=== PATIENT | male | born 1945 ===

== ENCOUNTER 2023-04-09 17:44 | Inpatient (IN) | payer OTHER, MEDICARE, BC, SELFPAY ==
--- NOTE | ~2023-04-09 | CT_ITS ---
EXAMINATION: CT ABDOMEN AND PELVIS WITHOUT CONTRAST CLINICAL INFORMATION: Bacteremia. Question source. COMPARISON: None available. TECHNIQUE: Multidetector volumetric imaging was performed from the superior aspect of the liver through the pubic symphysis. Sagittal and coronal reformatted images were obtained on the technologist's workstation. This CT examination was performed using dose optimization techniques as appropriate, variously including the following: *Automated exposure control *Adjustment of mA and/or kV according to patient size (this includes techniques or standardized protocols for targeted exams where dose is matched to indication/reason for exam; i.e. extremities or head) *Use of iterative reconstruction technique DLP: 1009 mGy-cm FINDINGS: LUNG BASES: Subsegmental atelectasis at the left lung base. LIVER, GALLBLADDER, AND BILIARY TREE: The liver is normal in size, shape, and attenuation. 2 cm low-attenuation lesion in the lateral segment of the left lobe of the liver suggestive of a cyst. Normal gallbladder. No biliary duct dilatation. PANCREAS: Unremarkable. SPLEEN: Unremarkable. ADRENAL GLANDS: Unremarkable. KIDNEYS AND URETERS: The kidneys are normal in size, shape, and attenuation. No hydronephrosis, hydroureter, or calculi seen. No perinephric stranding. Small bilateral low-attenuation renal lesions probably representing cysts. No imaging follow-up recommended. BLADDER: Not optimally distended. GASTROINTESTINAL TRACT: Mild diverticulosis. No evidence of diverticulitis or colitis. The small and large bowel are otherwise unremarkable. The appendix is unremarkable. ABDOMINAL WALL: Umbilical and periumbilical hernias containing fat. LYMPH NODES: Normal. VASCULAR: Unremarkable. PELVIC VISCERA: Unremarkable. OSSEOUS STRUCTURES: Degenerative changes of the spine and hip joints. CT/CT abdomen pelvis wo IV con IMPRESSION: Diverticulosis. No evidence of diverticulitis or colitis. Liver cyst. Umbilical and periumbilical hernias containing fat. Fleischner guidelines were followed.
--- NOTE | ~2023-04-09 | XR_ITS ---
EXAMINATION: XR CHEST CLINICAL INFORMATION: Altered mental status COMPARISON: None available. TECHNIQUE: Frontal view of the chest was obtained. FINDINGS: Lung volumes are symmetric. There is linear atelectasis at the left lung base. No additional consolidation is seen. No evidence of pneumothorax, pleural effusion, or pulmonary edema. The cardiomediastinal contour is unremarkable. No acute osseous findings are seen. XR/XR chest 1V IMPRESSION: Linear left basilar atelectasis without additional acute findings.
[2023-04-09 17:52] VITALS: BP 128/78; BP 155/68; PULSE 110; PULSE 114; RESP 24; TEMP 37.7; O2SAT 96; BMI 44.5
--- NOTE | 2023-04-09 18:09 | ECG_ITS ---
Test Reason : Fever Blood Pressure : / mmHG Vent. Rate : 108 BPM Atrial Rate : 108 BPM P-R Int : 160 ms QRS Dur : 112 ms QT Int : 336 ms P-R-T Axes : 053 -20 073 degrees QTc Int : 450 ms Sinus tachycardia Otherwise normal ECG No previous ECGs available Referred By: Wanda Castro Electronically Signed By:WALE SCHWARTZ MD
--- NOTE | 2023-04-09 18:21 | ED_ITS ---
HPI - Fever General Chief Complaint: Fever Stated Complaint: FEVER OF 101 LETHARGIC Time Seen by Provider: 04/09/23 18:10 Source: patient and EMS Mode of arrival: EMS Limitations: no limitations History of Present Illness HPI Narrative: 77-year-old male came in by ambulance from rehab for evaluation of fever, and g eneralize weakness for 2 hours. Patient was discharged from [facility] ER yesterday to a rehab patient is new to the rehab staff noted to be febrile with a generalized weakness, initially in the ED patient met criteria for sepsis and sepsis protocol was activated, exam is consistent with right lower leg cellulitis. Related Data Allergies Allergy/AdvReac Type Severity Reaction Status Date / Time No Known Allergies Allergy Verified 04/09/23 18:26 Review of Systems Review of Systems: All other systems are reviewed and are negative Constitutional: Reports as per HPI and Reports no additional constitutional complaints Eyes: Reports as per HPI and Reports no additional eye complaints Reports system reviewed and no additional complaints, except as documented Cardiovascular: Reports as per HPI and Reports no additional cardiovascular complaints Respiratory: Reports as per HPI and Reports no additional respiratory complaints Gastrointestinal: Reports as per HPI and Reports no additional gastrointestinal complaints Genitourinary: Reports no additional female genitourinary complaints Musculoskeletal: Reports no additional musculoskeletal complaints Skin/Breast: Reports system reviewed and no additional complaints, except as docu Psychiatric: Reports no additional psychiatric complaints Endocrine: Reports no additional endocrine complaints Hematologic/Lymphatic: Reports no additional hematologic/lymphatic complaints Allergic/Immunologic: Reports no additional allergic/immunologic complaints Reports system reviewed and no additional complaints, except as documented and Reports Abnormal speech present [facility] Social History Social History Alcohol intake: unknown Patient Tobacco Use Status: Former Tobacco user Smoked in Last 30 Days: No Use of substances other than those prescribed or required for medical reasons: Unknown Advance Directives: No Advance Directives Information Provided: No Physical Exam Vital Signs: Vital Signs: Last Vital Signs Temp 98.8 F 04/09/23 22:13 Pulse 100 04/09/23 22:13 Resp 17 04/09/23 22:13 BP 135/72 04/09/23 22:13 Pulse Ox 95 04/09/23 22:13 O2 Del Method Room Air 04/09/23 22:13 BMI result Body Mass Index 44.5 Vital signs have been reviewed as appeared to be correct. Blood pressure normal. Heart rate tachycardia. Respiration rate elevated. Temperature normal. Oxygen saturation normal. Appearance: Alert. Oriented X3. No acute distress. Head: Normal external exam. Normocephalic. Atraumatic. No Roberts signs noted. No raccoon eyes noted Eyes: PERRLA. EOMI. Conjunctiva and sclera normal. Eyelids normal. ENT: TM's Normal. Pharynx normal. Uvula midline. Moist mucous membranes. No trismus noted. No drooling noted. No muffled voice noted. Neck: Normal inspection. Neck supple. FROM. No adenopathy. Thyroid Normal. No meningeal signs. No neck mass noted. CVS: Normal heart rate and rhythm. Heart sound normal. No murmurs noted. Pulses normal throughout. Respiratory: No respiratory distress. Painless inspiration. Breath sounds normal. No wheezes/rales/rhonchi noted. Chest nontender. No accessory muscle usage noted or decreased air movement noted. Abdomen: Soft and nontender. Bowel sounds normal in all 4 quadrants. No distention noted. No organomegaly noted. No visible injury noted. Back: No CVA tenderness. Full range of motion noted. Skin: Skin warm and dry. Normal skin color. Normal skin turgor. No rashes/lesions/lacerations noted. Extremities: 10 x 15 cm area of redness and hotness to the right lower leg, neurovascularly intact Neuro: Oriented X 3. Cranial nerve exam: II-XII are grossly intact, No motor deficit. No sensory deficit. Reflexes normal. Course Course Course Narrative: Right leg cellulitis with SIRS, patient do not meet criteria for septic shock, no improvement of lactic acid after IV hydration, covered with Zosyn and vancomycin and was given 1 L of normal saline IV. Medications Administered Generic Name Dose Route Start Last Admin Trade Name Freq PRN Reason Stop Dose Admin Enoxaparin Sodium 40 mg 04/09/23 22:00 04/09/23 23:02 Enoxaparin Sodium 40 Mg/0.4 Ml Syringe SUBCUT 40 mg Q24H TARUN Administration Lactated Ringer's 1,000 mls @ 100 mls/hr 04/09/23 22:00 04/09/23 23:03 Lr IVCONT 100 mls/hr .Q10H TARUN Administration Sodium Chloride 3 ml 04/10/23 00:00 04/10/23 00:21 0.9 % Sodium Chloride Flush 3 Ml Syringe IVFLUSH Not Given QSHIFT TARUN Discontinued Medications Generic Name Dose Route Start Last Admin Trade Name Bradley PRN Reason Stop Dose Admin Piperacillin Sod/Tazobactam 50 mls @ 100 mls/hr 04/09/23 18:33 04/09/23 23:43 Sod 3.375 gm/ Sodium Chloride IV 04/09/23 19:02 Infused ONCE ONE Infusion Sodium Chloride 1,000 mls @ 999 mls/hr 04/09/23 18:35 04/09/23 23:43 Ns IV 04/09/23 19:35 Infused .Q1H1M ONE Infusion Vancomycin HCl 2,000 mg in 500 mls @ 250 mls/hr 04/09/23 18:45 04/09/23 23:44 Vancomycin/Ns IV 04/09/23 20:44 Infused ONCE ONE Infusion Tramadol HCl 50 mg 04/09/23 23:16 04/09/23 23:32 Tramadol Hcl 50 Mg Tablet PO 04/09/23 23:17 50 mg ONCE ONE Administration Medical Decision Making Differential Diagnosis Differential Diagnoses: The differential diagnosis associated with the presentation includes (Cellulitis, pneumonia, UTI, severe electrolyte abnormalities, septic shock, severe anemia, UTI.) Admission/Observation Consideration of admission/observation: Escalation of care including admi ssion/observation considered Consult Healthcare Provider Management of the patient was discussed with: Hospitalist (Dr. Guaman) Lab Data MDM Lab Attestation statement: I reviewed the patient's lab results. 04/09/23 18:43 04/09/23 18:43 Labs: Lab Results 04/09/23 04/09/23 04/09/23 Range/Units 18:01 18:43 18:43 WBC 10.3 (4.8-10.8) X10*3/uL RBC 4.99 (4.60-5.80) X10*6/uL Hgb 15.4 (14.0-18.0) g/dl Hct 45.6 (42.0-52.0) % MCV 91.4 (80.0-98.0) fL MCH 30.9 (27.0-33.0) pg MCHC 33.8 (31.0-36.0) g/dl RDW 13.2 (11.0-16.0) % Plt Count 184 (160-400) X10*3/uL MPV 9.8 (9.4-12.4) fL Immature Gran % (Auto) 0.3 (0.0-0.4) % Neut % (Auto) 75.5 H (45-73) % Lymph % (Auto) 10.7 L (20-40) % [place] % (Auto) 13.1 H (2-11) % Eos % (Auto) 0.1 (0-4) % Baso % (Auto) 0.3 (0-2) % Lymph # (Auto) 1.1 L (1.2-4.9) X10*3/uL [place] # (Auto) 1.4 H (0.1-1.2) X10*3/uL Eos # (Auto) 0.0 (0.0-0.4) X10*3/uL Baso # (Auto) 0.0 (0.0-0.2) X10*3/uL Abs Immat Gran (auto) 0.03 (0.00-0.03) X10*3/uL Absolute Neuts (auto) 7.8 (2.0-8.3) x10*3/uL Absolute Nucleated RBC 0.000 (0.0-0.012) X10*3/uL Nucleated RBC % (auto) 0.0 (0.0-0.2) /100WBC PT 14.7 H (10.0-13.1) SEC INR 1.3 H (0.9-1.1) APTT 32.0 (26.0-36.4) SEC Sodium (135-145) mmol/L Potassium (3.3-5.1) mmol/L Chloride (96-108) mmol/L Carbon Dioxide (22-29) mmol/L Anion Gap (12-20) BUN (9-16) mg/dL Creatinine (0.5-1.4) mg/dL Estim Creat Clear Calc Estimated GFR Random Glucose (60-115) mg/dL Lactic Acid 2.3 H* (0.5-2.0) mmol/L Calcium (8.4-10.2) mg/dL Total Bilirubin (0.0-1.0) mg/dL Direct Bilirubin (0.0-0.5) mg/dL AST (5-37) U/L ALT (0-40) U/L Alkaline Phosphatase (39-117) U/L Troponin I High Sens (<3.5-35.0) ng/L B-Natriuretic Peptide (<100) pg/mL Total Protein (6.5-8.0) g/dL Albumin (3.5-5.0) g/dL Urine Color Urine Appearance Urine pH (5.0-9.0) Ur Specific [place] (1.005-1.025) Urine Protein (Neg-Trace) mg/dL Urine Glucose (UA) (Negative) mg/dL Urine Ketones (Negative) mg/dL Urine Blood (Negative) Urine Nitrite (Negative) Ur Leukocyte Esterase (Negative) Urine RBC (0-2) /HPF Urine WBC (0-5) /HPF Ur Squamous Epith Cells (0-2) /HPF Urine Bacteria (None Seen) Hyaline Casts (0-2) /LPF 04/09/23 04/09/23 04/09/23 Range/Units 18:43 18:43 18:56 WBC (4.8-10.8) X10*3/uL RBC (4.60-5.80) X10*6/uL Hgb (14.0-18.0) g/dl Hct (42.0-52.0) % MCV (80.0-98.0) fL MCH (27.0-33.0) pg MCHC (31.0-36.0) g/dl RDW (11.0-16.0) % Plt Count (160-400) X10*3/uL MPV (9.4-12.4) fL Immature Gran % (Auto) (0.0-0.4) % Neut % (Auto) (45-73) % Lymph % (Auto) (20-40) % [place] % (Auto) (2-11) % Eos % (Auto) (0-4) % Baso % (Auto) (0-2) % Lymph # (Auto) (1.2-4.9) X10*3/uL [place] # (Auto) (0.1-1.2) X10*3/uL Eos # (Auto) (0.0-0.4) X10*3/uL Baso # (Auto) (0.0-0.2) X10*3/uL Abs Immat Gran (auto) (0.00-0.03) X10*3/uL Absolute Neuts (auto) (2.0-8.3) x10*3/uL Absolute Nucleated RBC (0.0-0.012) X10*3/uL Nucleated RBC % (auto) (0.0-0.2) /100WBC PT (10.0-13.1) SEC INR (0.9-1.1) APTT (26.0-36.4) SEC Sodium 137 (135-145) mmol/L Potassium 4.3 (3.3-5.1) mmol/L Chloride 98 (96-108) mmol/L Carbon Dioxide 23 (22-29) mmol/L Anion Gap 20 (12-20) BUN 29 H (9-16) mg/dL Creatinine 1.91 H (0.5-1.4) mg/dL Estim Creat Clear Calc 45.8 Estimated GFR 35 Random Glucose 169 H (60-115) mg/dL Lactic Acid (0.5-2.0) mmol/L Calcium 10.1 (8.4-10.2) mg/dL Total Bilirubin 1.5 H (0.0-1.0) mg/dL Direct Bilirubin 0.6 H (0.0-0.5) mg/dL AST 30 (5-37) U/L ALT 20 (0-40) U/L Alkaline Phosphatase 104 (39-117) U/L Troponin I High Sens < 2.7 (<3.5-35.0) ng/L B-Natriuretic Peptide (<100) pg/mL Total Protein 8.3 H (6.5-8.0) g/dL Albumin 4.3 (3.5-5.0) g/dL Urine Color Yellow Urine Appearance Clear Urine pH 6.0 (5.0-9.0) Ur Specific [place] 1.010 (1.005-1.025) Urine Protein Negative (Neg-Trace) mg/dL Urine Glucose (UA) >=1000 H (Negative) mg/dL Urine Ketones Negative (Negative) mg/dL Urine Blood Negative (Negative) Urine Nitrite Negative (Negative) Ur Leukocyte Esterase Negative (Negative) Urine RBC 0-2 (0-2) /HPF Urine WBC 0-5 (0-5) /HPF Ur Squamous Epith Cells 0-2 (0-2) /HPF Urine Bacteria None Seen (None Seen) Hyaline Casts 0-2 (0-2) /LPF 04/09/23 Range/Units 20:20 WBC (4.8-10.8) X10*3/uL RBC (4.60-5.80) X10*6/uL Hgb (14.0-18.0) g/dl Hct (42.0-52.0) % MCV (80.0-98.0) fL MCH (27.0-33.0) pg MCHC (31.0-36.0) g/dl RDW (11.0-16.0) % Plt Count (160-400) X10*3/uL MPV (9.4-12.4) fL Immature Gran % (Auto) (0.0-0.4) % Neut % (Auto) (45-73) % Lymph % (Auto) (20-40) % [place] % (Auto) (2-11) % Eos % (Auto) (0-4) % Baso % (Auto) (0-2) % Lymph # (Auto) (1.2-4.9) X10*3/uL [place] # (Auto) (0.1-1.2) X10*3/uL Eos # (Auto) (0.0-0.4) X10*3/uL Baso # (Auto) (0.0-0.2) X10*3/uL Abs Immat Gran (auto) (0.00-0.03) X10*3/uL Absolute Neuts (auto) (2.0-8.3) x10*3/uL Absolute Nucleated RBC (0.0-0.012) X10*3/uL Nucleated RBC % (auto) (0.0-0.2) /100WBC PT (10.0-13.1) SEC INR (0.9-1.1) APTT (26.0-36.4) SEC Sodium (135-145) mmol/L Potassium (3.3-5.1) mmol/L Chloride (96-108) mmol/L Carbon Dioxide (22-29) mmol/L Anion Gap (12-20) BUN (9-16) mg/dL Creatinine (0.5-1.4) mg/dL Estim Creat Clear Calc Estimated GFR Random Glucose (60-115) mg/dL Lactic Acid (0.5-2.0) mmol/L Calcium (8.4-10.2) mg/dL Total Bilirubin (0.0-1.0) mg/dL Direct Bilirubin (0.0-0.5) mg/dL AST (5-37) U/L ALT (0-40) U/L Alkaline Phosphatase (39-117) U/L Troponin I High Sens (<3.5-35.0) ng/L B-Natriuretic Peptide < 10 (<100) pg/mL Total Protein (6.5-8.0) g/dL Albumin (3.5-5.0) g/dL Urine Color Urine Appearance Urine pH (5.0-9.0) Ur Specific [place] (1.005-1.025) Urine Protein (Neg-Trace) mg/dL Urine Glucose (UA) (Negative) mg/dL Urine Ketones (Negative) mg/dL Urine Blood (Negative) Urine Nitrite (Negative) Ur Leukocyte Esterase (Negative) Urine RBC (0-2) /HPF Urine WBC (0-5) /HPF Ur Squamous Epith Cells (0-2) /HPF Urine Bacteria (None Seen) Hyaline Casts (0-2) /LPF Independent Interpretation I performed an independent interpretation of an: Plain X-Ray (Chest: No acute intrathoracic pathology.) Radiology Impression Discussion of test interpretation with radiology: I have reviewed the r adiologist's reading. Discharge Plan Discharge Clinical Impression: Cellulitis of leg, right, Sepsis Patient Disposition: Admitted As Inpatient
--- NOTE | 2023-04-09 18:38 | PC.NURSE ---
Pt presents to ED lethargic, febrile with rectal temp 102.4. Pt answers questions appropriately. Tachy on tele 110s. Generally weak, no unilateral weakness noted on exam. Right ankle with swelling and redness, pt does report pain but reports for years. Upper ext dusky with cap refill greater than 2 sec. IV established and labs obtained
[2023-04-09 18:53] LABS: MANUAL DIFF FLAG NO
[2023-04-09 18:59] LABS: Basophils Percent Auto 0.3 % (0-2); Eosinophils Percent Auto 0.1 % (0-4); Hematocrit 45.6 % (42.0-52.0); Hemoglobin 15.4 g/dl (14.0-18.0); Imm Gran Abs Auto 0.03 X10*3/uL (0.00-0.03); Imm Gran Pct Auto 0.3 % (0.0-0.4); Lymphocytes Absolute Auto 1.1 X10*3/uL (1.2-4.9); Lymphocytes Percent Auto 10.7 % (20-40); Mean Corpuscular HGB Conc 33.8 g/dl (31.0-36.0); Mean Corpuscular Hemoglobin 30.9 pg (27.0-33.0); Mean Corpuscular Volume 91.4 fL (80.0-98.0); Mean Platelet Volume 9.8 fL (9.4-12.4); Monocytes Absolute Auto 1.4 X10*3/uL (0.1-1.2); Monocytes Percent Auto 13.1 % (2-11); Neutrophils Absolute Auto 7.8 x10*3/uL (2.0-8.3); Neutrophils Percent Auto 75.5 % (45-73); Platelet Count 184 X10*3/uL (160-400); Red Blood Count 4.99 X10*6/uL (4.60-5.80); Red Cell Distribution Width 13.2 % (11.0-16.0); White Blood Count 10.3 X10*3/uL (4.8-10.8)
--- NOTE | 2023-04-09 18:59 | PC.NURSE ---
sepsis protocol was called with notification to Dr. Castro. 1st set of cultures drawn, unable to obtain second set d/t pt difficult stick. pt straight cathed for UA.
[2023-04-09 19:01] VITALS: BP 130/83; PULSE 103; RESP 17; TEMP 37.1; O2SAT 97
--- NOTE | 2023-04-09 19:09 | PC.NURSE ---
assumed care of patient at 0705.Spesis protocol in place. First set of culutres draw during previous shift. Patient difficult stick, delaying antibiotic treatment
[2023-04-09 19:11] LABS: Alanine Aminotransferase 20 U/L (0-40); Albumin Level 4.3 g/dL (3.5-5.0); Alkaline Phosphatase 104 U/L (39-117); Anion Gap 20 (12-20); Aspartate Amino Transferase 30 U/L (5-37); Bilirubin Direct 0.6 mg/dL (0.0-0.5); Bilirubin Total 1.5 mg/dL (0.0-1.0); Blood Urea Nitrogen 29 mg/dL (9-16); Calcium 10.1 mg/dL (8.4-10.2); Carbon Dioxide 23 mmol/L (22-29); Chloride 98 mmol/L (96-108); Creatinine Clr Calc Pharmacy 45.8; Estimated Glomerular Filt Rate 35; Glucose Random 169 mg/dL (60-115); Potassium 4.3 mmol/L (3.3-5.1); Sodium 137 mmol/L (135-145); Total Protein 8.3 g/dL (6.5-8.0)
[2023-04-09 19:14] LABS: Lactic Acid 2.3 mmol/L (0.5-2.0)
--- NOTE | 2023-04-09 19:14 | MHC.EDTECH ---
Assumed care of pt as anesthesia technician at 1900 No distress at this time will Continue to monitor at this time EKG WAS ORDERED PRIOR TO MY ARRIVAL WAS NOT DONE
[2023-04-09 19:16] LABS: Troponin-I High Sensitivity < 2.7 ng/L (<3.5-35.0)
[2023-04-09 19:17] LABS: INTERNATIONAL NORM RATIO 1.3 (0.9-1.1); Prothrombin Time 14.7 SEC (10.0-13.1)
[2023-04-09] MEDS: Piperacillin Sodium/Tazobactam 3.375 GM in 0.9 % Sodium Chloride 50 ML IV (19:45)
[2023-04-09] MEDS: 0.9 % Sodium Chloride 1,000 ML 999 ML IV (19:45)
--- NOTE | 2023-04-09 19:51 | PC.NURSE ---
abx initiated. Delayed due to challenge in getting labs
[2023-04-09 19:56] LABS: Appearance Urine Clear; Color Urine Yellow; Glucose Urine UA >=1000 mg/dL (Negative); Leukocyte Esterase Urine Negative (Negative); Nitrite Urine Negative (Negative); UMIC TRIGGER UACC YES; Urine Blood Negative (Negative); Urine Ketones Negative (Negative); Urine Protein Negative (Neg-Trace)
[2023-04-09 20:01] VITALS: BP 137/79; PULSE 105; RESP 17; TEMP 36.7; O2SAT 94
[2023-04-09 20:01] LABS: Bacteria Urine None Seen (None Seen); Hyaline Casts Urine 0-2 /LPF (0-2); RBC Urine 0-2 /HPF (0-2); Squamous Epithelial Cell Urine 0-2 /HPF (0-2); WBC Urine 0-5 /HPF (0-5)
--- NOTE | 2023-04-09 20:45 | PC.NURSE ---
Multiple attempts to obtain second lactic draw by multiple staff were unsuccessful. certified pest control technician
[2023-04-09 20:50] LABS: Reflex Lactate? Lactic Acid Added
[2023-04-09 21:01] VITALS: BP 143/76; PULSE 104; RESP 17; TEMP 37.1; O2SAT 94
[2023-04-09] MEDS: vancomycin/NS 2,000 MG/500 ML PLAST..BAG 250 MG IV (21:04)
[2023-04-09 21:07] LABS: B Type Natriuretic Peptide < 10 pg/mL (<100)
--- NOTE | 2023-04-09 22:03 | P.HPHOSP_ITS ---
History of Present Illness Date of Service: 04/09/23 Chief Complaint: Somnolent, lethargy, increased weakness This is a 77-year-old male past medical history of hypertension, diabetes, comes into the hospital with complaints of increased lethargy. Patient was seen at outside hospital recently for further workup of generalized weakness, according to his daughter neuro source was found, patient was sent to rehab. His daughter checked on him today at rehab center and found him to be very weak and lethargic therefore brought him to the hospital. Patient has no acute complaints denies any chest pain, no shortness of breath, no abdominal pain nausea or vomiting, no diarrhea constipation, no urinary symptoms and no lower extremity edema. When asked about his leg he has says that he noticed this redness for about few days. On arrival to the ED patient has tachycardia and tachypnea, blood pressure stable Labs are significant for WBC count of 10.3, creatinine of 1.91, lactic acid of 2.4, UA negative, Chest x-ray negative Patient will be admitted for further management Review of Systems Review of Systems: Yes all other systems are reviewed and are negative PMFSH Social History Alcohol intake: unknown Patient Tobacco Use Status: Former Tobacco user Smoked in Last 30 Days: No Use of substances other than those prescribed or required for medical reasons: Unknown Advance Directives: No Advance Directives Information Provided: No Meds Allergies Allergy/AdvReac Type Severity Reaction Status Date / Time No Known Allergies Allergy Verified 04/09/23 18:26 Physical Exam Vital Signs and Narrative: Vital Signs: Last Vital Signs Temp 98.8 F 04/09/23 21:01 Pulse 104 H 04/09/23 21:01 Resp 17 04/09/23 21:01 BP 143/76 H 04/09/23 21:01 Pulse Ox 94 04/09/23 21:01 O2 Del Method Room Air 04/09/23 21:01 BMI result Body Mass Index 44.5 Const: Other: Ill appearing General: cooperative and no acute distress Orientation/consciousness: patient oriented x3 Eyes: General: appearance normal, both eyes and all related structures Resp: Effort & Inspection: normal respiratory effort Auscultation: clear to auscultation bilaterally Cardio: Rate: regular rate Rhythm: regular rhythm GI: Palpation (GI): Soft to palpation Auscultation: normal bowel sounds Skin: Other: Right lower extremity erythema, warmth, tenderness, as well as swelling around the cortes area Neuro: General: patient oriented x3 Cognition (Neuro): normal cognition Extrem: Other: Has erythema of the right lower extremity around the cortes tenderness, and some swelling Results Labs 04/09/23 18:43 04/09/23 18:43 Labs: Laboratory Results - last 24 hr 04/09/23 04/09/23 04/09/23 18:01 18:43 18:43 MCV 91.4 MCH 30.9 MCHC 33.8 RDW 13.2 Plt Count 184 MPV 9.8 Immature Gran % (Auto) 0.3 Neut % (Auto) 75.5 H Lymph % (Auto) 10.7 L [place] % (Auto) 13.1 H Eos % (Auto) 0.1 Baso % (Auto) 0.3 Lymph # (Auto) 1.1 L [place] # (Auto) 1.4 H Eos # (Auto) 0.0 Baso # (Auto) 0.0 Abs Immat Gran (auto) 0.03 Absolute Neuts (auto) 7.8 Absolute Nucleated RBC 0.000 Nucleated RBC % (auto) 0.0 PT 14.7 H INR 1.3 H APTT 32.0 Anion Gap Estim Creat Clear Calc Estimated GFR Random Glucose Lactic Acid 2.3 H* Calcium Total Bilirubin Direct Bilirubin AST ALT Alkaline Phosphatase Troponin I High Sens B-Natriuretic Peptide Total Protein Albumin Urine Color Urine Appearance Urine pH Ur Specific [place] Urine Protein Urine Glucose (UA) Urine Ketones Urine Blood Urine Nitrite Ur Leukocyte Esterase Urine RBC Urine WBC Ur Squamous Epith Cells Urine Bacteria Hyaline Casts 04/09/23 04/09/23 04/09/23 18:43 18:43 18:56 MCV MCH MCHC RDW Plt Count MPV Immature Gran % (Auto) Neut % (Auto) Lymph % (Auto) [place] % (Auto) Eos % (Auto) Baso % (Auto) Lymph # (Auto) [place] # (Auto) Eos # (Auto) Baso # (Auto) Abs Immat Gran (auto) Absolute Neuts (auto) Absolute Nucleated RBC Nucleated RBC % (auto) PT INR APTT Anion Gap 20 Estim Creat Clear Calc 45.8 Estimated GFR 35 Random Glucose 169 H Lactic Acid Calcium 10.1 Total Bilirubin 1.5 H Direct Bilirubin 0.6 H AST 30 ALT 20 Alkaline Phosphatase 104 Troponin I High Sens < 2.7 B-Natriuretic Peptide Total Protein 8.3 H Albumin 4.3 Urine Color Yellow Urine Appearance Clear Urine pH 6.0 Ur Specific [place] 1.010 Urine Protein Negative Urine Glucose (UA) >=1000 H Urine Ketones Negative Urine Blood Negative Urine Nitrite Negative Ur Leukocyte Esterase Negative Urine RBC 0-2 Urine WBC 0-5 Ur Squamous Epith Cells 0-2 Urine Bacteria None Seen Hyaline Casts 0-2 04/09/23 20:20 MCV MCH MCHC RDW Plt Count MPV Immature Gran % (Auto) Neut % (Auto) Lymph % (Auto) [place] % (Auto) Eos % (Auto) Baso % (Auto) Lymph # (Auto) [place] # (Auto) Eos # (Auto) Baso # (Auto) Abs Immat Gran (auto) Absolute Neuts (auto) Absolute Nucleated RBC Nucleated RBC % (auto) PT INR APTT Anion Gap Estim Creat Clear Calc Estimated GFR Random Glucose Lactic Acid Calcium Total Bilirubin Direct Bilirubin AST ALT Alkaline Phosphatase Troponin I High Sens B-Natriuretic Peptide < 10 Total Protein Albumin Urine Color Urine Appearance Urine pH Ur Specific [place] Urine Protein Urine Glucose (UA) Urine Ketones Urine Blood Urine Nitrite Ur Leukocyte Esterase Urine RBC Urine WBC Ur Squamous Epith Cells Urine Bacteria Hyaline Casts Assessment and Plan (1) Cellulitis of leg, right: Status: Acute (2) Sepsis: Status: Acute (3) MATILDE (acute kidney injury): Status: Acute Plan 77-year-old male with past medical history of comes into the hospital with complaints of lethargy found to have acute cellulitis # sepsis - secondary to acute cellulitis - meets criteria tachycardia, tachypnea, afebrile, no leukocytosis, elevated lactic acid - will treat with IV antibiotics, follow cultures # acute right lower extremity cellulitis - erythema, warmth, tenderness, swelling - has sepsis as a result - will treat with IV antibiotics - cultures # MATILDE - unclear baseline - likely secondary to dehydration from acute infection - will treat with IV fluids - follow cultures # diabetes - will resume home insulin - placed on low-dose sliding scale insulin - diabetic diet # hypertension - stable - continue home antihypertensives DVT prophylaxis: Lovenox Time Spent With Patient Time: Total time managing care of this patient today ____ minutes. Quality Stroke Does the patient have a stroke diagnosis?: No VTE Prior VTE?: No VTE Risk Level:: Medical - moderate - high VTE Device Contraindication: Treatment Not Indicated VTE Drug Contraindication: N/A - Med Ordered
[2023-04-09 22:13] VITALS: BP 135/72; PULSE 100; RESP 17; TEMP 37.1; O2SAT 95
--- NOTE | 2023-04-09 22:49 | MHC.EDTECH ---
This tech was asked to draw a repeat lactic due to being a difficult stick, this tech was able to obtain and sent to lab.
[2023-04-09 22:55] LABS: ~Lactic Acid-LAB USE ONLY 2.4 mmol/L (0.5-2.0)
[2023-04-09] MEDS: Enoxaparin Sodium 40 MG/0.4 ML SYRINGE SUBCUT (23:02)
[2023-04-09] MEDS: Lactated Ringers 1,000 ML 100 ML IVCONT (23:03)
[2023-04-09] MEDS: traMADoL HCL 50 MG TABLET PO (23:32)
[2023-04-10] VITALS (7 sets, daily range): BP systolic 114–175; BP diastolic 69–98; PULSE 69–135; RESP 17–20; TEMP 36.2–37.1; O2SAT 93–99; BMI 42.4
[2023-04-10 00:38] LABS: Reflex Lactate? 2 Y
[2023-04-10 01:25] LABS: ~Lactic Acid-LAB USE ONLY 0.7 mmol/L (0.5-2.0)
[2023-04-10] MEDS: ceFAZolin Sodium/Dextrose,Iso 2 GM/50 ML PIGGYBACK IV (02:36)
--- NOTE | 2023-04-10 05:50 | PC.NURSE ---
Nurse to Nurse report given to Catalina on s3, health/safety job titles Antonio to transport
--- NOTE | 2023-04-10 06:37 | PC.NURSE ---
PATIENT IS A 77 YEAR OPLD MALE ADMITTED TO , ROOM 344 AT 0610 WITH DX: RLE CELLULITIS. LEG NOTED TO BE REDDENED AND TENDER, +2 EDEMA TO BILAT LOWER LEGS +PP, HX NEUROPATHY PER PT. PT A/O X3, COLOR GOOD, LUING VALVERDE CLEAR BUT DIM TO BASES. ABDOMEN ROUND, FIRM, DISTENDED, AND UMBILICAL HERNIA NOTED. #20 TO RIGHT ARM WITH LR INFUSING AT 100ML/HR. PT DENIED PAIN, VSS, AND EDUCATED TO CALL CORTES, TV, BED CONTROLS, SAFETY, AND PLAN OF CARE. SEE ADMISSION ASSESSMENT FOR FULL DETAILS.
[2023-04-10 06:44] LABS: MANUAL DIFF FLAG NO
[2023-04-10 06:50] LABS: Basophils Percent Auto 0.5 % (0-2); Eosinophils Percent Auto 0.3 % (0-4); Hematocrit 43.9 % (42.0-52.0); Hemoglobin 14.2 g/dl (14.0-18.0); Imm Gran Abs Auto 0.02 X10*3/uL (0.00-0.03); Imm Gran Pct Auto 0.2 % (0.0-0.4); Lymphocytes Absolute Auto 1.3 X10*3/uL (1.2-4.9); Lymphocytes Percent Auto 14.7 % (20-40); Mean Corpuscular HGB Conc 32.3 g/dl (31.0-36.0); Mean Corpuscular Hemoglobin 30.7 pg (27.0-33.0); Mean Platelet Volume 10.1 fL (9.4-12.4); Monocytes Absolute Auto 0.8 X10*3/uL (0.1-1.2); Monocytes Percent Auto 9.7 % (2-11); Neutrophils Absolute Auto 6.4 x10*3/uL (2.0-8.3); Neutrophils Percent Auto 74.6 % (45-73); Platelet Count 150 X10*3/uL (160-400); Red Blood Count 4.62 X10*6/uL (4.60-5.80); Red Cell Distribution Width 13.3 % (11.0-16.0); White Blood Count 8.6 X10*3/uL (4.8-10.8)
[2023-04-10 07:13] LABS: Anion Gap 17 (12-20); Blood Urea Nitrogen 27 mg/dL (9-16); Calcium 9.7 mg/dL (8.4-10.2); Carbon Dioxide 17 mmol/L (22-29); Chloride 107 mmol/L (96-108); Estimated Glomerular Filt Rate 40; Glucose Random 146 mg/dL (60-115); Potassium 4.3 mmol/L (3.3-5.1); Sodium 137 mmol/L (135-145)
[2023-04-10 07:15] LABS: Glucose, Whole Blood 137 mg/dL (60-115)
[2023-04-10] MEDS: Lactated Ringers 1,000 ML 100 ML IVCONT ×2 (09:22→20:52)
--- NOTE | 2023-04-10 09:24 | MHC.CM.PN ---
Patient comes to [facility] from [facility] after a short stay at [facility] in [place]. The goal is for Patient to return to [facility] once medically cleared for dc and CM has initiated and will follow for dc planning. Patient typically lives in a house with his Son/HCP/Antonio and he does not usually require any DME.,Patient is covid marianne'narcisa and his PCP is Dr. Grey from the [facility] in [place].CM has relayed to LEEANN/Vanita that per Son, Patient is allergic to Codeine.
[2023-04-10 11:47] LABS: Glucose, Whole Blood 173 mg/dL (60-115)
--- NOTE | 2023-04-10 11:49 | HO.PM.IMPN ---
Subjective Subjective Date of Service: 04/10/23 Interval History: seen and examined this morning follow up for cellulitis, MATILDE awake, alert, no specific complaints, so pain at the right leg Review of Systems Review of Systems: Yes all other systems are reviewed and are negative Constitutional Constitutional: Denies chills and Denies fever(s) ENT Ears, Nose, Mouth, and Throat: Denies dizziness Cardiovascular Cardiovascular: Denies chest pain, Denies palpitations and Denies dyspnea Respiratory Respiratory: Denies cough and Denies dyspnea Gastrointestinal Gastrointestinal: Denies abdominal pain, Denies nausea and Denies vomiting Neurologic Neurologic: Denies dizziness Endocrine Endocrine: Denies palpitations Physical Exam Vital Signs: Vital Signs: Last Vital Signs Temp 97.1 F 04/10/23 07:01 Pulse 88 04/10/23 07:01 Resp 18 04/10/23 07:01 BP 175/77 H 04/10/23 07:01 Pulse Ox 99 04/10/23 07:01 O2 Del Method Room Air 04/10/23 07:01 BMI result Body Mass Index 42.4 Const: General: cooperative and comfortable; No alert or awake Nutritional Appearance: obese Resp: Effort & Inspection: normal respiratory effort, able to speak in complete sentences, no respiratory distress and no use of accessory muscles Auscultation: not clear to auscultation bilaterally Cardio: Rate: regular rate Heart sounds: S1 normal heart sound present and S2 normal heart sound present GI: Inspection: No distended Palpation (GI): Soft to palpation and nontender Skin: Other: RLE warm, no significant tenderness; left cortes with shallow dry wound without drainage or surrounding erythema Neuro: General: moves all extremities and CN's II-XI intact bilaterally Objective Data Active Medications Acetaminophen (Acetaminophen 325 Mg Tablet) 650 mg PO Q6H PRN PRN Reason: Pain, Mild (Pain Scale 1-3) Apixaban (Apixaban 5 Mg Tablet) 5 mg PO BID [facility] Aripiprazole (Aripiprazole 5 Mg Tablet) 5 mg PO DAILY [facility] Artificial Tears (Artificial Tears 15 Ml Drops) 1 drop EYE-BOTH BID [facility] Atorvastatin Calcium (Atorvastatin Calcium 80 Mg Tablet) 80 mg PO BEDTIME [facility] Clonidine HCl (Clonidine Hcl 0.2 Mg Tablet) 0.2 mg PO TID [facility]; Protocol Dextrose (Dextrose 50 % 25 Gm/50 Ml Syringe) 25 gm IVPUSH Q15M PRN; Protocol PRN Reason: per Hypoglycemia Standing Ord. Diazepam (Diazepam 2 Mg Tablet) 2 mg PO BID [facility] Docusate Sodium (Docusate Sodium 100 Mg Capsule) 100 mg PO DAILY PRN PRN Reason: Constipation Escitalopram Oxalate (Escitalopram Oxalate 5 Mg Tablet) 15 mg PO DAILY [facility] Finasteride (Finasteride 5 Mg Tablet) 5 mg PO DAILY [facility] Gabapentin (Gabapentin 600 Mg Tablet) 600 mg PO BID [facility] Glucose (Glucose Gel 15 Gm Gel..Gram.) 15 gm PO Q15M PRN; Protocol PRN Reason: per Hypoglycemia Standing Ord. Cefazolin Sodium/Dextrose (Ancef) 2 gm in 50 mls @ 100 mls/hr IV Q12H [facility] Last Infusion: 04/10/23 05:52 Dose: 0 mls/hr Documented By: WILLIAM Lactated Ringer's (Lr) 1,000 mls @ 100 mls/hr IVCONT .Q10H [facility] Last Admin: 04/10/23 09:22 Dose: 100 mls/hr Documented By: KACEY Insulin Glargine (Insulin Glargine,Hum.Rec.Anlog 100 Unit/Ml 10 Ml Vial) 10 unit SUBCUT DAILY [facility] Insulin Human Lispro (Insulin Lispro 100 Unit/Ml 3 Ml Vial) 0 unit SUBCUT QIDACHS [facility]; Protocol Last Admin: 04/10/23 07:35 Dose: Not Given Documented By: KACEY Non-Admin Reason: No Insulin Coverage Levetiracetam (Levetiracetam 250 Mg Tablet) 750 mg PO BID [facility] Magnesium Hydroxide (Milk Of Magnesia 30 Ml Oral.Susp) 30 ml PO DAILY PRN PRN Reason: Constipation Nystatin (Nystatin Powder 15 Gm Bottle) 1 appl TOPICAL BID [facility]; Protocol Ondansetron HCl (Ondansetron Hcl 4 Mg/2 Ml Vial) 4 mg IVPUSH Q8H PRN PRN Reason: Nausea and Vomiting Pharmacy Consult (Consult Rx Perform Med Rec) 1 each MISCELLANE ONCE PRN PRN Reason: Consult order Polyethylene Glycol (Polyethylene Glycol 3350 17 Gm Powd.Pack) 17 gm PO DAILY [facility] Sodium Chloride (0.9 % Sodium Chloride Flush 3 Ml Syringe) 3 ml IVFLUSH QSHIFT [facility] Last Admin: 04/10/23 09:23 Dose: Not Given Documented By: KACEY Non-Admin Reason: IV Running Tamsulosin HCl (Tamsulosin Hcl 0.4 Mg Capsule) 0.4 mg PO BEDTIME [facility] Thiamine HCl (Thiamine Hcl 100 Mg Tablet) 100 mg PO DAILY [facility] Trazodone HCl (Trazodone Hcl 50 Mg Tablet) 50 mg PO DAILY [facility] Zolpidem Tartrate (Zolpidem Tartrate 5 Mg Tablet) 5 mg PO BEDTIME [facility] Labs 04/10/23 06:39 04/10/23 06:39 Labs: Laboratory Results - last 24 hr 04/09/23 04/09/23 04/09/23 18:01 18:43 18:43 MCV 91.4 MCH 30.9 MCHC 33.8 RDW 13.2 Plt Count 184 MPV 9.8 Immature Gran % (Auto) 0.3 Neut % (Auto) 75.5 H Lymph % (Auto) 10.7 L Runnels % (Auto) 13.1 H Eos % (Auto) 0.1 Baso % (Auto) 0.3 Lymph # (Auto) 1.1 L Runnels # (Auto) 1.4 H Eos # (Auto) 0.0 Baso # (Auto) 0.0 Abs Immat Gran (auto) 0.03 Absolute Neuts (auto) 7.8 Absolute Nucleated RBC 0.000 Nucleated RBC % (auto) 0.0 PT 14.7 H INR 1.3 H APTT 32.0 Anion Gap Estim Creat Clear Calc Estimated GFR POC Glucose Random Glucose Lactic Acid 2.3 H* Lactic Acid F/U @ 2Hr Lactic Acid F/U @ 4Hr Calcium Total Bilirubin Direct Bilirubin AST ALT Alkaline Phosphatase Troponin I High Sens B-Natriuretic Peptide Total Protein Albumin Urine Color Urine Appearance Urine pH Ur Specific Ida Urine Protein Urine Glucose (UA) Urine Ketones Urine Blood Urine Nitrite Ur Leukocyte Esterase Urine RBC Urine WBC Ur Squamous Epith Cells Urine Bacteria Hyaline Casts 04/09/23 04/09/23 04/09/23 18:43 18:43 18:56 MCV MCH MCHC RDW Plt Count MPV Immature Gran % (Auto) Neut % (Auto) Lymph % (Auto) Runnels % (Auto) Eos % (Auto) Baso % (Auto) Lymph # (Auto) Runnels # (Auto) Eos # (Auto) Baso # (Auto) Abs Immat Gran (auto) Absolute Neuts (auto) Absolute Nucleated RBC Nucleated RBC % (auto) PT INR APTT Anion Gap 20 Estim Creat Clear Calc 45.8 Estimated GFR 35 POC Glucose Random Glucose 169 H Lactic Acid Lactic Acid F/U @ 2Hr Lactic Acid F/U @ 4Hr Calcium 10.1 Total Bilirubin 1.5 H Direct Bilirubin 0.6 H AST 30 ALT 20 Alkaline Phosphatase 104 Troponin I High Sens < 2.7 B-Natriuretic Peptide Total Protein 8.3 H Albumin 4.3 Urine Color Yellow Urine Appearance Clear Urine pH 6.0 Ur Specific Ida 1.010 Urine Protein Negative Urine Glucose (UA) >=1000 H Urine Ketones Negative Urine Blood Negative Urine Nitrite Negative Ur Leukocyte Esterase Negative Urine RBC 0-2 Urine WBC 0-5 Ur Squamous Epith Cells 0-2 Urine Bacteria None Seen Hyaline Casts 0-2 04/09/23 04/09/23 04/10/23 20:20 22:32 01:03 MCV MCH MCHC RDW Plt Count MPV Immature Gran % (Auto) Neut % (Auto) Lymph % (Auto) Runnels % (Auto) Eos % (Auto) Baso % (Auto) Lymph # (Auto) Runnels # (Auto) Eos # (Auto) Baso # (Auto) Abs Immat Gran (auto) Absolute Neuts (auto) Absolute Nucleated RBC Nucleated RBC % (auto) PT INR APTT Anion Gap Estim Creat Clear Calc Estimated GFR POC Glucose Random Glucose Lactic Acid Lactic Acid F/U @ 2Hr 2.4 H* Lactic Acid F/U @ 4Hr 0.7 Calcium Total Bilirubin Direct Bilirubin AST ALT Alkaline Phosphatase Troponin I High Sens B-Natriuretic Peptide < 10 Total Protein Albumin Urine Color Urine Appearance Urine pH Ur Specific Ida Urine Protein Urine Glucose (UA) Urine Ketones Urine Blood Urine Nitrite Ur Leukocyte Esterase Urine RBC Urine WBC Ur Squamous Epith Cells Urine Bacteria Hyaline Casts 04/10/23 04/10/23 04/10/23 06:39 06:39 07:06 MCV 95.0 MCH 30.7 MCHC 32.3 RDW 13.3 Plt Count 150 L MPV 10.1 Immature Gran % (Auto) 0.2 Neut % (Auto) 74.6 H Lymph % (Auto) 14.7 L Runnels % (Auto) 9.7 Eos % (Auto) 0.3 Baso % (Auto) 0.5 Lymph # (Auto) 1.3 Runnels # (Auto) 0.8 Eos # (Auto) 0.0 Baso # (Auto) 0.0 Abs Immat Gran (auto) 0.02 Absolute Neuts (auto) 6.4 Absolute Nucleated RBC 0.000 Nucleated RBC % (auto) 0.0 PT INR APTT Anion Gap 17 Estim Creat Clear Calc 51.0 Estimated GFR 40 POC Glucose 137 H Random Glucose 146 H Lactic Acid Lactic Acid F/U @ 2Hr Lactic Acid F/U @ 4Hr Calcium 9.7 Total Bilirubin Direct Bilirubin AST ALT Alkaline Phosphatase Troponin I High Sens B-Natriuretic Peptide Total Protein Albumin Urine Color Urine Appearance Urine pH Ur Specific Ida Urine Protein Urine Glucose (UA) Urine Ketones Urine Blood Urine Nitrite Ur Leukocyte Esterase Urine RBC Urine WBC Ur Squamous Epith Cells Urine Bacteria Hyaline Casts 04/10/23 11:28 MCV MCH MCHC RDW Plt Count MPV Immature Gran % (Auto) Neut % (Auto) Lymph % (Auto) Runnels % (Auto) Eos % (Auto) Baso % (Auto) Lymph # (Auto) Runnels # (Auto) Eos # (Auto) Baso # (Auto) Abs Immat Gran (auto) Absolute Neuts (auto) Absolute Nucleated RBC Nucleated RBC % (auto) PT INR APTT Anion Gap Estim Creat Clear Calc Estimated GFR POC Glucose 173 H Random Glucose Lactic Acid Lactic Acid F/U @ 2Hr Lactic Acid F/U @ 4Hr Calcium Total Bilirubin Direct Bilirubin AST ALT Alkaline Phosphatase Troponin I High Sens B-Natriuretic Peptide Total Protein Albumin Urine Color Urine Appearance Urine pH Ur Specific Ida Urine Protein Urine Glucose (UA) Urine Ketones Urine Blood Urine Nitrite Ur Leukocyte Esterase Urine RBC Urine WBC Ur Squamous Epith Cells Urine Bacteria Hyaline Casts Microbiology Microbiology Results: Microbiology 04/09/23 19:37 Blood Culture - Preliminary Blood - Venous Prelim: GNR Gram Stain only Assessment and Plan (1) MATILDE (acute kidney injury): Status: Acute (2) Cellulitis of leg, right: Status: Acute Plan 77-year-old male with history of DM, seizure disorder, FUENTES on CPAP, HLD, HTN, right ICA aneurysm, recent admit at [facility] for weakness and fall and discharged to [facility] for STR who presents with complaints of lethargy found to have sepsis/cellulitis and MATILDE sepsis secondary to acute right lower extremity cellulitis meets criteria with tachycardia, tachypnea. acute lactic acidosis resolved with IVF received IVF and lactic acidosis resolved initially treated with cefazolin, will broaden to IV zosyn given bacteremia until final blood culture results obtained GNR bacteremia 1/2 BCx positive may be secondary to cellulitis. UA negative for acute infection. belly CT from [facility] 04/06 with no infectious etiology will change abx to zosyn as above follow final culture results ID consult pending MATILDE improving a little from 1.91 to 1.67. SCr 1.5 at [facility] on 04/07 hold aldactone, lasix follow renal function chronic constipation belly CT from [facility] with severe stool retention, was started on bowel regimen continue miralax increased to twice daily, colace scheduled diabetes Hba1c 6.6 records from [facility] indicated lantus was stopped recently, but was listed on med rec from SNF. will hold for now. did received Lantus 04/10 follow insulin needs on sliding scale, resume lantus as needed follow POCs, ada diet presumed CHF, unspecified aldactone, lasix on hold for MATILDE does not appear fluid overloaded at this time, monitor fluid status closely while receiving IVF hypertension continue clonidine HLD continue statin seizure disorder continue keppra BPH recently started on flomax, proscar mood continue home meds morbid obesity BMI 42.4 weight loss encouraged hold semaglutide fuentes cpap DVT prophylaxis: Lovenox attending - Dr. Cooley attempted to call son Antonio Rodriguez to obtain more information about medical history but no answer, have not received return call at this time. records from [facility] reviewed requires ongoing inpatient hospitalization for IV antibiotics and close monitoring due to bacteremia/sepsis Time Spent With Patient Time: Total time managing care of this patient today ____ minutes. Quality Stroke Does the patient have a stroke diagnosis?: No VTE Prior VTE?: No VTE Risk Level:: Medical - moderate - high VTE Device Contraindication: Treatment Not Indicated VTE Drug Contraindication: N/A - Med Ordered
[2023-04-10] MEDS: Insulin Lispro 100 UNIT/ML 3 ML VIAL SUBCUT ×3 (12:03→20:53)
[2023-04-10] MEDS: ARIPiprazole 5 MG TABLET PO (12:04)
[2023-04-10] MEDS: Apixaban 5 MG TABLET PO ×2 (12:04→20:04)
[2023-04-10] MEDS: Insulin Glargine,Hum.rec.anlog 100 UNIT/ML 10 ML VIAL 10 UNIT SUBCUT (12:04)
[2023-04-10] MEDS: Finasteride 5 MG TABLET PO (12:04)
[2023-04-10] MEDS: Escitalopram Oxalate 5 MG TABLET 15 MG PO (12:04)
[2023-04-10] MEDS: Gabapentin 600 MG TABLET PO ×2 (12:11→20:04)
[2023-04-10] MEDS: Docusate Sodium 100 MG CAPSULE PO (12:22)
[2023-04-10] MEDS: Nystatin Powder 15 GM BOTTLE 1 APPL TOPICAL ×2 (13:31→20:06)
[2023-04-10] MEDS: cloNIDine HCL 0.2 MG TABLET PO ×2 (13:31→20:05)
[2023-04-10] MEDS: Piperacillin Sodium/Tazobactam 3.375 GM in 0.9 % Sodium Chloride 50 ML IV ×3 (13:31→23:45)
[2023-04-10 16:11] LABS: Glucose, Whole Blood 196 mg/dL (60-115)
[2023-04-10] MEDS: 0.9 % Sodium Chloride Flush 3 ML SYRINGE IVFLUSH (16:20)
[2023-04-10] MEDS: Acetaminophen 325 MG TABLET 650 MG PO (16:27)
[2023-04-10] MEDS: Artificial Tears 15 ML DROPS 1 DROP EYE-BOTH (20:04)
[2023-04-10] MEDS: polyethylene glycoL 3350 17 GM POWD.PACK PO (20:04)
[2023-04-10] MEDS: levETIRAcetam 250 MG TABLET 750 MG PO (20:04)
[2023-04-10] MEDS: diazePAM 2 MG TABLET PO (20:05)
[2023-04-10] MEDS: Tamsulosin HCL 0.4 MG CAPSULE PO (20:05)
[2023-04-10] MEDS: Zolpidem Tartrate 5 MG TABLET PO (20:05)
[2023-04-10] MEDS: Atorvastatin Calcium 80 MG TABLET PO (20:05)
[2023-04-10 20:44] LABS: Glucose, Whole Blood 174 mg/dL (60-115)
[2023-04-11 03:06] VITALS: BP 131/83; PULSE 83; RESP 18; TEMP 36.2; O2SAT 95
[2023-04-11] MEDS: Milk of Magnesia 30 ML ORAL.SUSP PO (06:38)
[2023-04-11] MEDS: Piperacillin Sodium/Tazobactam 3.375 GM in 0.9 % Sodium Chloride 50 ML IV ×4 (06:38→23:10)
[2023-04-11 07:35] LABS: Glucose, Whole Blood 117 mg/dL (60-115)
[2023-04-11 07:43] VITALS: BP 139/72; PULSE 90; RESP 18; TEMP 36.4; O2SAT 92
[2023-04-11 07:44] LABS: Anion Gap 13 (12-20); Blood Urea Nitrogen 29 mg/dL (9-16); Calcium 9.9 mg/dL (8.4-10.2); Carbon Dioxide 24 mmol/L (22-29); Chloride 107 mmol/L (96-108); Creatinine Clr Calc Pharmacy 55.7; Estimated Glomerular Filt Rate 45; Glucose Random 110 mg/dL (60-115); Potassium 4.4 mmol/L (3.3-5.1); Sodium 140 mmol/L (135-145)
[2023-04-11] MEDS: Escitalopram Oxalate 5 MG TABLET 15 MG PO (08:29)
[2023-04-11] MEDS: levETIRAcetam 250 MG TABLET 750 MG PO ×2 (08:29→22:47)
[2023-04-11] MEDS: Gabapentin 600 MG TABLET PO ×2 (08:29→22:47)
[2023-04-11] MEDS: diazePAM 2 MG TABLET PO ×2 (08:29→22:48)
[2023-04-11] MEDS: ARIPiprazole 5 MG TABLET PO (08:30)
[2023-04-11] MEDS: Apixaban 5 MG TABLET PO ×2 (08:31→22:48)
[2023-04-11] MEDS: polyethylene glycoL 3350 17 GM POWD.PACK PO (08:31)
[2023-04-11] MEDS: Finasteride 5 MG TABLET PO (08:31)
[2023-04-11] MEDS: cloNIDine HCL 0.2 MG TABLET PO ×3 (08:31→22:47)
[2023-04-11] MEDS: traZODone HCL 50 MG TABLET PO (08:31)
[2023-04-11] MEDS: Thiamine HCL 100 MG TABLET PO (08:31)
[2023-04-11] MEDS: Nystatin Powder 15 GM BOTTLE 1 APPL TOPICAL ×2 (08:36→22:49)
[2023-04-11] MEDS: Docusate Sodium 100 MG CAPSULE PO (08:46)
--- NOTE | 2023-04-11 10:21 | HO.PM.IMPN ---
Subjective Subjective Date of Service: 04/11/23 Interval History: seen and examined this morning follow up for cellulitis, MATILDE awake, alert, no specific complaints, so pain at the right leg Review of Systems Review of Systems: Yes all other systems are reviewed and are negative Constitutional Constitutional: Denies chills and Denies fever(s) ENT Ears, Nose, Mouth, and Throat: Denies dizziness Cardiovascular Cardiovascular: Denies chest pain, Denies palpitations and Denies dyspnea Respiratory Respiratory: Denies cough and Denies dyspnea Gastrointestinal Gastrointestinal: Denies abdominal pain, Denies nausea and Denies vomiting Neurologic Neurologic: Denies dizziness Endocrine Endocrine: Denies palpitations Physical Exam Vital Signs: Vital Signs: Last Vital Signs Temp 97.6 F 04/11/23 07:43 Pulse 90 04/11/23 07:43 Resp 18 04/11/23 07:43 BP 139/72 04/11/23 07:43 Pulse Ox 92 04/11/23 07:43 O2 Del Method Room Air 04/11/23 07:43 BMI result Body Mass Index 42.4 Appearing in no acute distress lung sounds are clear to auscultation heart regular rate rhythm, clear S1, S2 positive bowel sounds, abdomen is soft, nontender neuro patient is alert x3, no focal deficits erythema to right lower extremity bilateral nonpitting edema Objective Data Active Medications Acetaminophen (Acetaminophen 325 Mg Tablet) 650 mg PO Q6H PRN PRN Reason: Pain, Mild (Pain Scale 1-3) Last Admin: 04/10/23 16:27 Dose: 650 mg Documented By: FUENTES Apixaban (Apixaban 5 Mg Tablet) 5 mg PO BID [facility] Last Admin: 04/11/23 08:31 Dose: 5 mg Documented By: LORRAINE Aripiprazole (Aripiprazole 5 Mg Tablet) 5 mg PO DAILY [facility] Last Admin: 04/11/23 08:30 Dose: 5 mg Documented By: LORARINE Artificial Tears (Artificial Tears 15 Ml Drops) 1 drop EYE-BOTH BID [facility] Last Admin: 04/11/23 08:38 Dose: Not Given Documented By: LORRAINE Non-Admin Reason: Patient Refused Atorvastatin Calcium (Atorvastatin Calcium 80 Mg Tablet) 80 mg PO BEDTIME [facility] Last Admin: 04/10/23 20:05 Dose: 80 mg Documented By: FUENTES Clonidine HCl (Clonidine Hcl 0.2 Mg Tablet) 0.2 mg PO TID [facility]; Protocol Last Admin: 04/11/23 08:31 Dose: 0.2 mg Documented By: LORRAINE Dextrose (Dextrose 50 % 25 Gm/50 Ml Syringe) 25 gm IVPUSH Q15M PRN; Protocol PRN Reason: per Hypoglycemia Standing Ord. Diazepam (Diazepam 2 Mg Tablet) 2 mg PO BID [facility] Last Admin: 04/11/23 08:29 Dose: 2 mg Documented By: LORRAINE Docusate Sodium (Docusate Sodium 100 Mg Capsule) 100 mg PO DAILY [facility] Last Admin: 04/11/23 08:46 Dose: 100 mg Documented By: LORRAINE Escitalopram Oxalate (Escitalopram Oxalate 5 Mg Tablet) 15 mg PO DAILY [facility] Last Admin: 04/11/23 08:29 Dose: 15 mg Documented By: LORRAINE Finasteride (Finasteride 5 Mg Tablet) 5 mg PO DAILY [facility] Last Admin: 04/11/23 08:31 Dose: 5 mg Documented By: LORRAINE Gabapentin (Gabapentin 600 Mg Tablet) 600 mg PO BID [facility] Last Admin: 04/11/23 08:29 Dose: 600 mg Documented By: LORRAINE Glucose (Glucose Gel 15 Gm Gel..Gram.) 15 gm PO Q15M PRN; Protocol PRN Reason: per Hypoglycemia Standing Ord. Lactated Ringer's (Lr) 1,000 mls @ 100 mls/hr IVCONT .Q10H [facility] Last Infusion: 04/11/23 06:38 Dose: 0 mls/hr Documented By: DEAN Piperacillin Sod/Tazobactam (Sod 3.375 gm/ Sodium Chloride) 50 mls @ 100 mls/hr IV Q6H [facility] Last Infusion: 04/11/23 08:35 Dose: 0 mls/hr Documented By: LORRAINE Insulin Glargine (Insulin Glargine,Hum.Rec.Anlog 100 Unit/Ml 10 Ml Vial) 10 unit SUBCUT DAILY [facility] Last Admin: 04/10/23 12:04 Dose: 10 unit Documented By: KACEY Insulin Human Lispro (Insulin Lispro 100 Unit/Ml 3 Ml Vial) 0 unit SUBCUT QIDACHS [facility]; Protocol Last Admin: 04/11/23 07:45 Dose: Not Given Documented By: LORRAINE Non-Admin Reason: No Insulin Coverage Levetiracetam (Levetiracetam 250 Mg Tablet) 750 mg PO BID [facility] Last Admin: 04/11/23 08:29 Dose: 750 mg Documented By: LORRAINE Magnesium Hydroxide (Milk Of Magnesia 30 Ml Oral.Susp) 30 ml PO DAILY PRN PRN Reason: Constipation Last Admin: 04/11/23 06:38 Dose: 30 ml Documented By: DEAN Nystatin (Nystatin Powder 15 Gm Bottle) 1 appl TOPICAL BID [facility]; Protocol Last Admin: 04/11/23 08:36 Dose: 1 appl Documented By: LORRAINE Ondansetron HCl (Ondansetron Hcl 4 Mg/2 Ml Vial) 4 mg IVPUSH Q8H PRN PRN Reason: Nausea and Vomiting Pharmacy Consult (Consult Rx Perform Med Rec) 1 each MISCELLANE ONCE PRN PRN Reason: Consult order Polyethylene Glycol (Polyethylene Glycol 3350 17 Gm Powd.Pack) 17 gm PO BID [facility] Last Admin: 04/11/23 08:31 Dose: 17 gm Documented By: LORRAINE Sodium Chloride (0.9 % Sodium Chloride Flush 3 Ml Syringe) 3 ml IVFLUSH QSHIFT [facility] Last Admin: 04/11/23 08:35 Dose: Not Given Documented By: LORRAINE Non-Admin Reason: IV Running Tamsulosin HCl (Tamsulosin Hcl 0.4 Mg Capsule) 0.4 mg PO BEDTIME [facility] Last Admin: 04/10/23 20:05 Dose: 0.4 mg Documented By: FUENTES Thiamine HCl (Thiamine Hcl 100 Mg Tablet) 100 mg PO DAILY [facility] Last Admin: 04/11/23 08:31 Dose: 100 mg Documented By: LORRAINE Trazodone HCl (Trazodone Hcl 50 Mg Tablet) 50 mg PO DAILY [facility] Last Admin: 04/11/23 08:31 Dose: 50 mg Documented By: LORRAINE Zolpidem Tartrate (Zolpidem Tartrate 5 Mg Tablet) 5 mg PO BEDTIME [facility] Last Admin: 04/10/23 20:05 Dose: 5 mg Documented By: FUENTES Labs 04/10/23 06:39 04/11/23 05:28 Labs: Laboratory Results - last 24 hr 04/10/23 04/10/23 04/10/23 11:28 15:48 20:32 Anion Gap Estim Creat Clear Calc Estimated GFR POC Glucose 173 H 196 H 174 H Random Glucose Calcium 04/11/23 04/11/23 05:28 07:24 Anion Gap 13 Estim Creat Clear Calc 55.7 Estimated GFR 45 POC Glucose 117 H Random Glucose 110 Calcium 9.9 Microbiology Microbiology Results: Microbiology 04/09/23 19:37 Blood Culture - Preliminary Blood - Venous Gram negative dena 04/09/23 18:43 Blood Culture - Preliminary Blood - Venous No growth after 24 hours. Assessment and Plan (1) MATILDE (acute kidney injury): Status: Acute (2) Cellulitis of leg, right: Status: Acute Plan 77-year-old male with history of DM, seizure disorder, FUENTES on CPAP, HLD, HTN, right ICA aneurysm, recent admit at [facility] for weakness and fall and discharged to [facility] for STR who presents with complaints of lethargy found to have sepsis/cellulitis and MATILDE Sepsis secondary to acute right lower extremity cellulitis sepsis resolved meets criteria with tachycardia, tachypnea. acute lactic acidosis resolved with IVF initially treated with cefazolin, changed to zosyn given bacteremia until final blood culture results obtained GNR bacteremia 1/2 BCx positive may be secondary to cellulitis. UA negative for acute infection. belly CT from [facility] [place] 04/06 with no infectious etiology will change abx to zosyn as above follow final culture results ID consult pending MATILDE improving a little from 1.91 to 1.67. SCr 1.5 at [facility] [place] [facility] on 04/07 hold aldactone, lasix follow renal function chronic constipation belly CT from [facility] [place] [facility] with severe stool retention, was started on bowel regimen continue miralax increased to twice daily, colace scheduled diabetes Hba1c 6.6 records from [facility] [place] indicated lantus was stopped recently, but was listed on med rec from SNF. will hold for now. did received Lantus 04/10 follow insulin needs on sliding scale, resume lantus as needed follow POCs, ada diet presumed CHF, unspecified aldactone, lasix on hold for MATILDE does not appear fluid overloaded at this time, monitor fluid status closely while receiving IVF hypertension continue clonidine HLD continue statin seizure disorder continue keppra BPH recently started on flomax, proscar mood continue home meds morbid obesity BMI 42.4 weight loss encouraged hold semaglutide fuentes cpap DVT prophylaxis: Lovenox attending - Dr. Portillo DISPMichelle plan for STR when medically clear requires ongoing inpatient hospitalization for IV antibiotics and close monitoring due to bacteremia/sepsis Time Spent With Patient Time: Total time managing care of this patient today ____ minutes. Quality Stroke Does the patient have a stroke diagnosis?: No VTE Prior VTE?: No VTE Risk Level:: Medical - moderate - high VTE Device Contraindication: Treatment Not Indicated VTE Drug Contraindication: N/A - Med Ordered
[2023-04-11 11:18] LABS: Glucose, Whole Blood 151 mg/dL (60-115)
[2023-04-11] MEDS: Insulin Lispro 100 UNIT/ML 3 ML VIAL SUBCUT ×3 (12:03→22:50)
[2023-04-11] MEDS: Lactated Ringers 1,000 ML 100 ML IVCONT (12:37)
--- NOTE | 2023-04-11 13:06 | MHC.CM.PN ---
per rounds pt not ready for dc dc plan remains return to [facility]
--- NOTE | 2023-04-11 15:21 | W.PM.IDCN ---
History of Present Illness Data of Consult Service Date: 04/11/23 Requesting physician: Skylar Contreras Primary Care Provider: LEEANN Kruse HPI Reason for consult: fever of unknown origin He presents from Rehab where he went yesterday after discharge from [facility]. He feels weak and had temperature. He says his feet and legs are normally red. He had temperature of 101 before arrival. Blood culture shows gram negative dena bacteremia. He has Kumari in place and foot swelling. Review of Systems Review of Systems: Yes all other systems are reviewed and are negative [facility] Past Medical History Medical History (Updated 04/11/23 @ 15:25 by Bonita Kay MD) Gram-negative bacteremia Family History Family history: reviewed and not pertinent Social History Social History Household Members: Family Housing: House Do you presently have visiting nurse or other home services: No Alcohol intake: unknown Patient Tobacco Use Status: Former Tobacco user Second Hand Smoke Exposure: No service: Yes Meds Allergies Allergy/AdvReac Type Severity Reaction Status Date / Time codeine Allergy Unknown Verified 04/10/23 15:35 Active Medications: Current Medications Acetaminophen (Acetaminophen 325 Mg Tablet) 650 mg PO Q6H PRN PRN Reason: Pain, Mild (Pain Scale 1-3) Last Admin: 04/10/23 16:27 Dose: 650 mg Apixaban (Apixaban 5 Mg Tablet) 5 mg PO BID [facility] Last Admin: 04/11/23 08:31 Dose: 5 mg Aripiprazole (Aripiprazole 5 Mg Tablet) 5 mg PO DAILY [facility] Last Admin: 04/11/23 08:30 Dose: 5 mg Artificial Tears (Artificial Tears 15 Ml Drops) 1 drop EYE-BOTH BID [facility] Last Admin: 04/11/23 08:38 Dose: Not Given Atorvastatin Calcium (Atorvastatin Calcium 80 Mg Tablet) 80 mg PO BEDTIME [facility] Last Admin: 04/10/23 20:05 Dose: 80 mg Clonidine HCl (Clonidine Hcl 0.2 Mg Tablet) 0.2 mg PO TID [facility]; Protocol Last Admin: 04/11/23 14:35 Dose: 0.2 mg Dextrose (Dextrose 50 % 25 Gm/50 Ml Syringe) 25 gm IVPUSH Q15M PRN; Protocol PRN Reason: per Hypoglycemia Standing Ord. Diazepam (Diazepam 2 Mg Tablet) 2 mg PO BID [facility] Last Admin: 04/11/23 08:29 Dose: 2 mg Docusate Sodium (Docusate Sodium 100 Mg Capsule) 100 mg PO DAILY [facility] Last Admin: 04/11/23 08:46 Dose: 100 mg Escitalopram Oxalate (Escitalopram Oxalate 5 Mg Tablet) 15 mg PO DAILY [facility] Last Admin: 04/11/23 08:29 Dose: 15 mg Finasteride (Finasteride 5 Mg Tablet) 5 mg PO DAILY [facility] Last Admin: 04/11/23 08:31 Dose: 5 mg Gabapentin (Gabapentin 600 Mg Tablet) 600 mg PO BID [facility] Last Admin: 04/11/23 08:29 Dose: 600 mg Glucose (Glucose Gel 15 Gm Gel..Gram.) 15 gm PO Q15M PRN; Protocol PRN Reason: per Hypoglycemia Standing Ord. Lactated Ringer's (Lr) 1,000 mls @ 100 mls/hr IVCONT .Q10H [facility] Last Admin: 04/11/23 12:37 Dose: 100 mls/hr Piperacillin Sod/Tazobactam (Sod 3.375 gm/ Sodium Chloride) 50 mls @ 100 mls/hr IV Q6H [facility] Last Infusion: 04/11/23 12:38 Dose: Infused Insulin Glargine (Insulin Glargine,Hum.Rec.Anlog 100 Unit/Ml 10 Ml Vial) 10 unit SUBCUT DAILY [facility] Last Admin: 04/10/23 12:04 Dose: 10 unit Insulin Human Lispro (Insulin Lispro 100 Unit/Ml 3 Ml Vial) 0 unit SUBCUT QIDACHS [facility]; Protocol Last Admin: 04/11/23 12:03 Dose: 2 unit Levetiracetam (Levetiracetam 250 Mg Tablet) 750 mg PO BID [facility] Last Admin: 04/11/23 08:29 Dose: 750 mg Magnesium Hydroxide (Milk Of Magnesia 30 Ml Oral.Susp) 30 ml PO DAILY PRN PRN Reason: Constipation Last Admin: 04/11/23 06:38 Dose: 30 ml Nystatin (Nystatin Powder 15 Gm Bottle) 1 appl TOPICAL BID [facility]; Protocol Last Admin: 04/11/23 08:36 Dose: 1 appl Ondansetron HCl (Ondansetron Hcl 4 Mg/2 Ml Vial) 4 mg IVPUSH Q8H PRN PRN Reason: Nausea and Vomiting Pharmacy Consult (Consult Rx Perform Med Rec) 1 each MISCELLANE ONCE PRN PRN Reason: Consult order Polyethylene Glycol (Polyethylene Glycol 3350 17 Gm Powd.Pack) 17 gm PO BID [facility] Last Admin: 04/11/23 08:31 Dose: 17 gm Sodium Chloride (0.9 % Sodium Chloride Flush 3 Ml Syringe) 3 ml IVFLUSH QSHIFT [facility] Last Admin: 04/11/23 08:35 Dose: Not Given Tamsulosin HCl (Tamsulosin Hcl 0.4 Mg Capsule) 0.4 mg PO BEDTIME [facility] Last Admin: 04/10/23 20:05 Dose: 0.4 mg Thiamine HCl (Thiamine Hcl 100 Mg Tablet) 100 mg PO DAILY [facility] Last Admin: 04/11/23 08:31 Dose: 100 mg Trazodone HCl (Trazodone Hcl 50 Mg Tablet) 50 mg PO DAILY [facility] Last Admin: 04/11/23 08:31 Dose: 50 mg Zolpidem Tartrate (Zolpidem Tartrate 5 Mg Tablet) 5 mg PO BEDTIME [facility] Last Admin: 04/10/23 20:05 Dose: 5 mg Home Medications Medication Instructions Recorded Confirmed Last Taken Type apixaban 5 mg tablet 5 mg PO BID 04/10/23 04/10/23 Unknown History aripiprazole 5 mg tablet 5 mg PO DAILY 04/10/23 04/10/23 Unknown History atorvastatin 80 mg tablet 80 mg PO BEDTIME 04/10/23 04/10/23 Unknown History carboxymethylcellulose sodium 0.5 1 drp ophthalmic (eye) BID 04/10/23 04/10/23 Unknown History % eye drops clonidine HCl 0.2 mg tablet 0.2 mg PO TID 04/10/23 04/10/23 Unknown History diazepam 2 mg tablet 2 mg PO BID 04/10/23 04/10/23 Unknown History docusate sodium 100 mg capsule 100 mg PO DAILY PRN Constipation 04/10/23 04/10/23 Unknown History escitalopram oxalate 10 mg tablet 15 mg PO DAILY 04/10/23 04/10/23 Unknown History finasteride 5 mg tablet 5 mg PO DAILY 04/10/23 04/10/23 Unknown History furosemide 40 mg tablet 40 mg PO DAILY 04/10/23 04/10/23 Unknown History gabapentin 600 mg tablet 600 mg PO BID 04/10/23 04/10/23 Unknown History insulin glargine 100 unit/mL (3 unit subcut QAM 04/10/23 04/10/23 Unknown History mL) subcutaneous pen (Lantus Solostar U-100 Insulin) insulin lispro 100 unit/mL 1 sliding scale dose subcut 04/10/23 04/10/23 Unknown History subcutaneous pen (Humalog KwikPen USEASDIRECTD (U-100) Insulin) levetiracetam 750 mg tablet 750 mg PO BID 04/10/23 04/10/23 Unknown History multivitamin 1 tab PO DAILY 04/10/23 04/10/23 Unknown History nystatin 100,000 unit/gram topical 1 appl topical BID 04/10/23 04/10/23 Unknown History powder polyethylene glycol 3350 17 gram 17 g PO DAILY 04/10/23 04/10/23 Unknown History oral powder packet (Miralax) semaglutide (weight loss) 1.7 1.7 mg subcut QWEEK 04/10/23 04/10/23 Unknown History mg/0.75 mL subcutaneous pen injector spironolactone 25 mg tablet 25 mg PO DAILY 04/10/23 04/10/23 Unknown History tamsulosin 0.4 mg capsule 0.4 mg PO BEDTIME 04/10/23 04/10/23 Unknown History thiamine HCl (vitamin B1) 100 mg 100 mg PO DAILY 04/10/23 04/10/23 Unknown History tablet trazodone 50 mg tablet 25 mg PO DAILY 04/10/23 04/10/23 Unknown History zolpidem 5 mg tablet 10 mg PO BEDTIME 04/10/23 04/10/23 Unknown History Physical Exam Vital Signs: Vital Signs: Last Vital Signs Temp 97.6 F 04/11/23 07:43 Pulse 90 04/11/23 07:43 Resp 18 04/11/23 07:43 BP 139/72 04/11/23 07:43 Pulse Ox 92 04/11/23 07:43 O2 Del Method Room Air 04/11/23 07:43 BMI result Body Mass Index 42.4 Const: General: cooperative HEENT: Head: Yes normal to inspection Face and sinus: Yes normal facial exam Mouth: Normal oral and palatal mucosa present Teeth and gingiva: dentition normal Eyes: General: appearance normal, both eyes and all related structures Pupils: Equal, round and reactive pupils present Resp: Effort & Inspection: normal respiratory effort Cardio: Rate: regular rate Rhythm: regular rhythm GI: Palpation (GI): Soft to palpation and nontender : General: Yes no CVA tenderness Back/Spine/Pelvis: Back: no CVA tenderness Skin: General skin exam: no rashes or lesions noted Neuro: General: moves all extremities Cranial nerves: Yes Equal, round and reactive pupils present Extrem: Other: typically reddened RLE distal Psych: Appearance: grossly normal Results Labs 04/10/23 06:39 04/11/23 05:28 Labs: BMP 04/11/23 05:28 Sodium 140 Potassium 4.4 Chloride 107 Carbon Dioxide 24 BUN 29 H Creatinine 1.53 H Calcium 9.9 Microbiology Microbiology Results: Microbiology 04/09/23 19:37 Blood - Venous Blood Culture - Preliminary Gram negative dena 04/09/23 18:43 Blood - Venous Blood Culture - Preliminary No growth after 24 hours. Assessment and Plan (1) Sepsis: Status: Acute (2) Gram-negative bacteremia: Status: Acute This is likely from urinary or abdominal source. This is possible E coli or Klebsiella. Leg source is less likely. Plan May continue Zosyn for now since not definite urine source would not deescalate antibiotics yet. CT abdomen and pelvis with po contrast evalua any source. when ready for po can use Ceftin total 14 days. Time Spent With Patient Time: Total time managing care of this patient today ____ minutes.
[2023-04-11 15:44] VITALS: BP 146/78; PULSE 75; RESP 20; TEMP 36.6; O2SAT 97
[2023-04-11 16:16] LABS: Glucose, Whole Blood 161 mg/dL (60-115)
[2023-04-11 19:40] VITALS: RESP 20
[2023-04-11 19:59] VITALS: BP 143/77; PULSE 76; RESP 20; TEMP 36.4; O2SAT 98
[2023-04-11 20:56] LABS: Glucose, Whole Blood 158 mg/dL (60-115)
[2023-04-11] MEDS: Tamsulosin HCL 0.4 MG CAPSULE PO (22:47)
[2023-04-11] MEDS: Atorvastatin Calcium 80 MG TABLET PO (22:48)
[2023-04-11] MEDS: Zolpidem Tartrate 5 MG TABLET PO (22:48)
[2023-04-11] MEDS: Artificial Tears 15 ML DROPS 1 DROP EYE-BOTH (22:50)
--- NOTE | 2023-04-11 23:00 | PC.NURSE ---
Pt refused his miralax for fear of going in the middle of the night. Abdomen distended. He has + bowel sounds. Denies N/V. Education and encouragement provided.
[2023-04-12 00:48] VITALS: BP 125/68; PULSE 77; RESP 20; TEMP 36.6; O2SAT 96
[2023-04-12] MEDS: Piperacillin Sodium/Tazobactam 3.375 GM in 0.9 % Sodium Chloride 50 ML IV ×3 (05:28→18:09)
[2023-04-12 07:28] VITALS: BP 146/65; PULSE 76; RESP 18; TEMP 36.2; O2SAT 95
[2023-04-12 07:29] LABS: Glucose, Whole Blood 118 mg/dL (60-115)
[2023-04-12] MEDS: ARIPiprazole 5 MG TABLET PO (08:08)
[2023-04-12] MEDS: cloNIDine HCL 0.2 MG TABLET PO ×3 (08:08→21:12)
[2023-04-12] MEDS: Escitalopram Oxalate 5 MG TABLET 15 MG PO (08:08)
[2023-04-12] MEDS: Gabapentin 600 MG TABLET PO ×2 (08:08→21:12)
[2023-04-12] MEDS: 0.9 % Sodium Chloride Flush 3 ML SYRINGE IVFLUSH ×3 (08:09→21:18)
[2023-04-12] MEDS: Apixaban 5 MG TABLET PO ×2 (08:09→21:13)
[2023-04-12] MEDS: levETIRAcetam 250 MG TABLET 750 MG PO ×2 (08:09→21:12)
[2023-04-12] MEDS: diazePAM 2 MG TABLET PO ×2 (08:09→21:13)
[2023-04-12] MEDS: Finasteride 5 MG TABLET PO (08:09)
[2023-04-12] MEDS: Docusate Sodium 100 MG CAPSULE PO (08:09)
[2023-04-12] MEDS: Nystatin Powder 15 GM BOTTLE 1 APPL TOPICAL ×2 (08:10→21:17)
[2023-04-12] MEDS: Artificial Tears 15 ML DROPS 1 DROP EYE-BOTH ×2 (08:10→21:17)
[2023-04-12] MEDS: polyethylene glycoL 3350 17 GM POWD.PACK PO ×2 (08:18→21:13)
[2023-04-12] MEDS: traZODone HCL 50 MG TABLET PO (08:18)
[2023-04-12] MEDS: Thiamine HCL 100 MG TABLET PO (08:18)
[2023-04-12 09:02] VITALS: BP 146/65; PULSE 76; O2SAT 95
[2023-04-12] MEDS: Mineral OiL enema 133 ML ENEMA PR (09:59)
--- NOTE | 2023-04-12 10:20 | P.PNIM_ITS ---
Subjective Subjective Date of Service: 04/12/23 Interval History: seen and examined this morning follow up for cellulitis, MATILDE awake, alert, no specific complaints, so pain at the right leg Review of Systems Review of Systems: Yes all other systems are reviewed and are negative Constitutional Constitutional: Denies chills and Denies fever(s) ENT Ears, Nose, Mouth, and Throat: Denies dizziness Cardiovascular Cardiovascular: Denies chest pain, Denies palpitations and Denies dyspnea Respiratory Respiratory: Denies cough and Denies dyspnea Gastrointestinal Gastrointestinal: Denies abdominal pain, Denies nausea and Denies vomiting Neurologic Neurologic: Denies dizziness Endocrine Endocrine: Denies palpitations Physical Exam Vital Signs: Vital Signs: Last Vital Signs Temp 97.1 F 04/12/23 07:28 Pulse 76 04/12/23 09:02 Resp 18 04/12/23 07:28 BP 146/65 H 04/12/23 09:02 Pulse Ox 95 04/12/23 09:02 O2 Del Method Room Air 04/12/23 07:28 BMI result Body Mass Index 42.4 Appearing in no acute distress LSCTA heart regular rate rhythm, clear S1, S2 positive bowel sounds, abdomen is soft, nontender neuro patient is alert x3, no focal deficits Chronic bilateral lower extremity skin changes Objective Data Active Medications Acetaminophen (Acetaminophen 325 Mg Tablet) 650 mg PO Q6H PRN PRN Reason: Pain, Mild (Pain Scale 1-3) Last Admin: 04/10/23 16:27 Dose: 650 mg Documented By: FUENTES Apixaban (Apixaban 5 Mg Tablet) 5 mg PO BID [facility] Last Admin: 04/12/23 08:09 Dose: 5 mg Documented By: CATHERINE Aripiprazole (Aripiprazole 5 Mg Tablet) 5 mg PO DAILY [facility] Last Admin: 04/12/23 08:08 Dose: 5 mg Documented By: CATHERINE Artificial Tears (Artificial Tears 15 Ml Drops) 1 drop EYE-BOTH BID [facility] Last Admin: 04/12/23 08:10 Dose: 1 drop Documented By: CATHERINE Atorvastatin Calcium (Atorvastatin Calcium 80 Mg Tablet) 80 mg PO BEDTIME [facility] Last Admin: 04/11/23 22:48 Dose: 80 mg Documented By: GABRIELA Clonidine HCl (Clonidine Hcl 0.2 Mg Tablet) 0.2 mg PO TID [facility]; Protocol Last Admin: 04/12/23 08:08 Dose: 0.2 mg Documented By: CATHERINE Dextrose (Dextrose 50 % 25 Gm/50 Ml Syringe) 25 gm IVPUSH Q15M PRN; Protocol PRN Reason: per Hypoglycemia Standing Ord. Diazepam (Diazepam 2 Mg Tablet) 2 mg PO BID [facility] Last Admin: 04/12/23 08:09 Dose: 2 mg Documented By: CATHERINE Docusate Sodium (Docusate Sodium 100 Mg Capsule) 100 mg PO DAILY [facility] Last Admin: 04/12/23 08:09 Dose: 100 mg Documented By: CATHERINE Escitalopram Oxalate (Escitalopram Oxalate 5 Mg Tablet) 15 mg PO DAILY [facility] Last Admin: 04/12/23 08:08 Dose: 15 mg Documented By: CATHERINE Finasteride (Finasteride 5 Mg Tablet) 5 mg PO DAILY [facility] Last Admin: 04/12/23 08:09 Dose: 5 mg Documented By: CATHERINE Gabapentin (Gabapentin 600 Mg Tablet) 600 mg PO BID [facility] Last Admin: 04/12/23 08:08 Dose: 600 mg Documented By: CATHERINE Glucose (Glucose Gel 15 Gm Gel..Gram.) 15 gm PO Q15M PRN; Protocol PRN Reason: per Hypoglycemia Standing Ord. Piperacillin Sod/Tazobactam (Sod 3.375 gm/ Sodium Chloride) 50 mls @ 100 mls/hr IV Q6H [facility] Last Infusion: 04/12/23 06:14 Dose: 0 mls/hr Documented By: GABRIELA Insulin Glargine (Insulin Glargine,Hum.Rec.Anlog 100 Unit/Ml 10 Ml Vial) 10 unit SUBCUT DAILY [facility] Last Admin: 04/10/23 12:04 Dose: 10 unit Documented By: KACEY Insulin Human Lispro (Insulin Lispro 100 Unit/Ml 3 Ml Vial) 0 unit SUBCUT QI [facility]; Protocol Last Admin: 04/12/23 07:32 Dose: Not Given Documented By: CATHERINE Non-Admin Reason: No Insulin Coverage Levetiracetam (Levetiracetam 250 Mg Tablet) 750 mg PO BID [facility] Last Admin: 04/12/23 08:09 Dose: 750 mg Documented By: CATHERINE Magnesium Hydroxide (Milk Of Magnesia 30 Ml Oral.Susp) 30 ml PO DAILY PRN PRN Reason: Constipation Last Admin: 04/11/23 06:38 Dose: 30 ml Documented By: DEAN Nystatin (Nystatin Powder 15 Gm Bottle) 1 appl TOPICAL BID [facility]; Protocol Last Admin: 04/12/23 08:10 Dose: 1 appl Documented By: CATHERINE Ondansetron HCl (Ondansetron Hcl 4 Mg/2 Ml Vial) 4 mg IVPUSH Q8H PRN PRN Reason: Nausea and Vomiting Pharmacy Consult (Consult Rx Perform Med Rec) 1 each MISCELLANE ONCE PRN PRN Reason: Consult order Polyethylene Glycol (Polyethylene Glycol 3350 17 Gm Powd.Pack) 17 gm PO BID [facility] Last Admin: 04/12/23 08:18 Dose: 17 gm Documented By: CATHERINE Sodium Chloride (0.9 % Sodium Chloride Flush 3 Ml Syringe) 3 ml IVFLUSH QSHIFT [facility] Last Admin: 04/12/23 08:09 Dose: 3 ml Documented By: CATHERINE Tamsulosin HCl (Tamsulosin Hcl 0.4 Mg Capsule) 0.4 mg PO BEDTIME [facility] Last Admin: 04/11/23 22:47 Dose: 0.4 mg Documented By: GABRIELA Thiamine HCl (Thiamine Hcl 100 Mg Tablet) 100 mg PO DAILY [facility] Last Admin: 04/12/23 08:18 Dose: 100 mg Documented By: CATHERINE Trazodone HCl (Trazodone Hcl 50 Mg Tablet) 50 mg PO DAILY [facility] Last Admin: 04/12/23 08:18 Dose: 50 mg Documented By: CATHERINE Zolpidem Tartrate (Zolpidem Tartrate 5 Mg Tablet) 5 mg PO BEDTIME [facility] Last Admin: 04/11/23 22:48 Dose: 5 mg Documented By: MICHELLEM Labs 04/10/23 06:39 04/11/23 05:28 Labs: Laboratory Results - last 24 hr 04/11/23 04/11/23 04/11/23 11:09 16:08 20:20 POC Glucose 151 H 161 H 158 H 04/12/23 07:26 POC Glucose 118 H Microbiology Microbiology Results: Microbiology 04/09/23 18:43 Blood Culture - Preliminary Blood - Venous No growth after 48 hours. 04/09/23 19:37 Blood Culture - Preliminary Blood - Venous Gram negative dena Assessment and Plan (1) MATILDE (acute kidney injury): Status: Acute (2) Cellulitis of leg, right: Status: Acute Plan 77-year-old male with history of DM, seizure disorder, FUENTES on CPAP, HLD, HTN, right ICA aneurysm, recent admit at [facility] for weakness and fall and discharged to [facility] for STR who presents with complaints of lethargy found to have sepsis/cellulitis and MATILDE Sepsis secondary to acute right lower extremity cellulitis sepsis resolved meets criteria with tachycardia, tachypnea. acute lactic acidosis resolved with IVF initially treated with cefazolin, changed to zosyn given bacteremia until final blood culture results obtained GNR bacteremia / BCx positive may be secondary to cellulitis. UA negative for acute infection. belly CT from [facility] 04/06 with no infectious etiology will change abx to zosyn as above follow final culture results, once cultures are finalized can be transferred back to short-term rehab MATILDE improving a little from 1.91 to 1.67. SCr 1.5 at [facility] on 04/07 hold aldactone, lasix follow renal function chronic constipation abdominal CT from [facility] with severe stool retention, was started on bowel regimen continue miralax increased to twice daily, colace scheduled fleets enema diabetes Hba1c 6.6 records from [facility] indicated lantus was stopped recently, but was listed on med rec from SNF. will hold for now. did received Lantus 04/10 follow insulin needs on sliding scale, resume lantus as needed follow POCs, ada diet presumed CHF, unspecified aldactone, lasix on hold for MATILDE does not appear fluid overloaded at this time, monitor fluid status closely while receiving IVF hypertension continue clonidine HLD continue statin seizure disorder continue keppra BPH recently started on flomax, proscar mood continue home meds morbid obesity BMI 42.4 weight loss encouraged hold semaglutide fuentes cpap DVT prophylaxis: Bharat attending - Dr. Bandar DOLL plan for STR when medically clear 04/12/2023 attempted to call son to update, no answer requires ongoing inpatient hospitalization for IV antibiotics and close monitoring due to bacteremia/sepsis Time Spent With Patient Time: Total time managing care of this patient today ____ minutes. Quality Stroke Does the patient have a stroke diagnosis?: No VTE Prior VTE?: No VTE Risk Level:: Medical - moderate - high VTE Device Contraindication: Treatment Not Indicated VTE Drug Contraindication: N/A - Med Ordered
[2023-04-12 11:34] LABS: Glucose, Whole Blood 153 mg/dL (60-115)
[2023-04-12] MEDS: Insulin Lispro 100 UNIT/ML 3 ML VIAL SUBCUT ×3 (11:53→21:13)
--- NOTE | 2023-04-12 15:00 | P.CDIM_ITS ---
PROVIDER RESPONSE TEXT: To clarify, the appropriate diagnosis supported by the clinical indicators: No, Cellulitis right lower extremity is not related to / associated with / due to Diabetes Mellitus QUERY TEXT: PHYSICIAN'S DOCUMENTATION REQUEST Date of Query: 04/12/2023 11:39 AM EDT Patient Name: Antonio Gonzalez Admit Date: 04/10/2023 Dear Skylar Contreras, A review of the medical record indicates additional documentation may be needed. Please review below and update the documentation accordingly. Documentation on 04/12/23 includes the conditions of right lower extremity cellulitis and Diabetes Marichuy litus. Please clarify the relationship between these conditions: Yes, Cellulitis right lower extremity is related to / associated with / due to Diabetes Mellitus No, Cellulitis right lower extremity is not related to / associated with / due to Diabetes Mellitus Other (explain)Clinically unable to determine (explain)Thank you, Mary Jones RN Use of terms such as suspected, likely, concern for, or probable (associated with a specific diagnosi s that is being evaluated, monitored, or treated as if it exists) are acceptable and can be coded in the inpatient se tting, when documented at the time of discharge. Please use your independent medical judgment in providing your response. THIS QUERY IS PART OF THE PERMANENT MEDICAL RECORD
[2023-04-12 15:32] VITALS: BP 144/76; PULSE 78; RESP 20; TEMP 36.8; O2SAT 95
[2023-04-12 16:14] LABS: Glucose, Whole Blood 168 mg/dL (60-115)
[2023-04-12] MEDS: Acetaminophen 325 MG TABLET 650 MG PO (16:33)
[2023-04-12 19:46] VITALS: RESP 20
[2023-04-12 20:00] VITALS: BP 141/66; PULSE 70; RESP 20; TEMP 36.6; O2SAT 93
[2023-04-12 20:20] LABS: Glucose, Whole Blood 152 mg/dL (60-115)
[2023-04-12] MEDS: Tamsulosin HCL 0.4 MG CAPSULE PO (21:12)
[2023-04-12] MEDS: Atorvastatin Calcium 80 MG TABLET PO (21:12)
[2023-04-12] MEDS: Zolpidem Tartrate 5 MG TABLET PO (21:12)
[2023-04-13] MEDS: Piperacillin Sodium/Tazobactam 3.375 GM in 0.9 % Sodium Chloride 50 ML IV ×4 (00:14→18:05)
[2023-04-13 04:00] VITALS: BP 146/65; PULSE 76; RESP 20; TEMP 36.4; O2SAT 94
[2023-04-13 07:17] VITALS: BP 152/69; PULSE 74; RESP 18; TEMP 36.4; O2SAT 98
[2023-04-13 07:36] LABS: Glucose, Whole Blood 101 mg/dL (60-115)
[2023-04-13] MEDS: Thiamine HCL 100 MG TABLET PO (08:42)
[2023-04-13] MEDS: Apixaban 5 MG TABLET PO ×2 (08:43→21:06)
[2023-04-13] MEDS: Docusate Sodium 100 MG CAPSULE PO (08:43)
[2023-04-13] MEDS: diazePAM 2 MG TABLET PO ×2 (08:43→21:06)
[2023-04-13] MEDS: traZODone HCL 50 MG TABLET PO (08:43)
[2023-04-13] MEDS: ARIPiprazole 5 MG TABLET PO (08:43)
[2023-04-13] MEDS: Escitalopram Oxalate 5 MG TABLET 15 MG PO (08:43)
[2023-04-13] MEDS: Gabapentin 600 MG TABLET PO ×2 (08:43→21:06)
[2023-04-13] MEDS: cloNIDine HCL 0.2 MG TABLET PO ×3 (08:43→21:06)
[2023-04-13] MEDS: Nystatin Powder 15 GM BOTTLE 1 APPL TOPICAL ×2 (08:44→21:07)
[2023-04-13] MEDS: levETIRAcetam 250 MG TABLET 750 MG PO ×2 (08:44→21:06)
[2023-04-13] MEDS: Finasteride 5 MG TABLET PO (08:44)
[2023-04-13] MEDS: polyethylene glycoL 3350 17 GM POWD.PACK PO ×2 (08:44→21:05)
[2023-04-13] MEDS: 0.9 % Sodium Chloride Flush 3 ML SYRINGE IVFLUSH ×2 (08:45→15:15)
[2023-04-13] MEDS: Furosemide 40 MG/4 ML VIAL IVPUSH (10:44)
[2023-04-13 11:28] LABS: Glucose, Whole Blood 133 mg/dL (60-115)
--- NOTE | 2023-04-13 12:31 | HO.PM.IMPN ---
Subjective Subjective Date of Service: 04/13/23 Interval History: seen and examined this morning follow up for bacteremia having swelling in legs and pain which is making it difficult to stand had BM this am Review of Systems Review of Systems: Yes all other systems are reviewed and are negative Constitutional Constitutional: Denies chills and Denies fever(s) ENT Ears, Nose, Mouth, and Throat: Denies dizziness Cardiovascular Cardiovascular: Denies chest pain, Denies palpitations and Denies dyspnea Respiratory Respiratory: Denies cough and Denies dyspnea Gastrointestinal Gastrointestinal: Denies abdominal pain, Denies nausea and Denies vomiting Neurologic Neurologic: Denies dizziness Endocrine Endocrine: Denies palpitations Physical Exam Vital Signs: Vital Signs: Last Vital Signs Temp 97.6 F 04/13/23 07:17 Pulse 74 04/13/23 07:17 Resp 18 04/13/23 07:17 BP 152/69 H 04/13/23 07:17 Pulse Ox 98 04/13/23 07:17 O2 Del Method Room Air 04/13/23 07:17 BMI result Body Mass Index 42.4 Const: General: cooperative and comfortable; No alert or awake Nutritional Appearance: obese Resp: Effort & Inspection: normal respiratory effort, able to speak in complete sentences, no respiratory distress and no use of accessory muscles Auscultation: not clear to auscultation bilaterally Cardio: Rate: regular rate Heart sounds: S1 normal heart sound present and S2 normal heart sound present GI: Inspection: No distended Palpation (GI): Soft to palpation and nontender Neuro: General: moves all extremities and CN's II-XI intact bilaterally Objective Data Active Medications Acetaminophen (Acetaminophen 325 Mg Tablet) 650 mg PO Q6H PRN PRN Reason: Pain, Mild (Pain Scale 1-3) Last Admin: 04/12/23 16:33 Dose: 650 mg Documented By: LETICIA Apixaban (Apixaban 5 Mg Tablet) 5 mg PO BID [facility] Last Admin: 04/13/23 08:43 Dose: 5 mg Documented By: CATHERINE Aripiprazole (Aripiprazole 5 Mg Tablet) 5 mg PO DAILY [facility] Last Admin: 04/13/23 08:43 Dose: 5 mg Documented By: CATHERINE Artificial Tears (Artificial Tears 15 Ml Drops) 1 drop EYE-BOTH BID [facility] Last Admin: 04/13/23 08:44 Dose: Not Given Documented By: CATHERINE Non-Admin Reason: Patient Refused Atorvastatin Calcium (Atorvastatin Calcium 80 Mg Tablet) 80 mg PO BEDTIME [facility] Last Admin: 04/12/23 21:12 Dose: 80 mg Documented By: LETICIA Clonidine HCl (Clonidine Hcl 0.2 Mg Tablet) 0.2 mg PO TID [facility]; Protocol Last Admin: 04/13/23 08:43 Dose: 0.2 mg Documented By: CATHERINE Dextrose (Dextrose 50 % 25 Gm/50 Ml Syringe) 25 gm IVPUSH Q15M PRN; Protocol PRN Reason: per Hypoglycemia Standing Ord. Diazepam (Diazepam 2 Mg Tablet) 2 mg PO BID [facility] Last Admin: 04/13/23 08:43 Dose: 2 mg Documented By: CATHERINE Docusate Sodium (Docusate Sodium 100 Mg Capsule) 100 mg PO DAILY [facility] Last Admin: 04/13/23 08:43 Dose: 100 mg Documented By: CATHERINE Escitalopram Oxalate (Escitalopram Oxalate 5 Mg Tablet) 15 mg PO DAILY [facility] Last Admin: 04/13/23 08:43 Dose: 15 mg Documented By: CATHERINE Finasteride (Finasteride 5 Mg Tablet) 5 mg PO DAILY [facility] Last Admin: 04/13/23 08:44 Dose: 5 mg Documented By: CATHERINE Furosemide (Furosemide 40 Mg Tablet) 40 mg PO DAILY [facility]; Protocol Gabapentin (Gabapentin 600 Mg Tablet) 600 mg PO BID [facility] Last Admin: 04/13/23 08:43 Dose: 600 mg Documented By: CATHERINE Glucose (Glucose Gel 15 Gm Gel..Gram.) 15 gm PO Q15M PRN; Protocol PRN Reason: per Hypoglycemia Standing Ord. Piperacillin Sod/Tazobactam (Sod 3.375 gm/ Sodium Chloride) 50 mls @ 100 mls/hr IV Q6H [facility] Last Infusion: 04/13/23 06:15 Dose: 0 mls/hr Documented By: LETICIA Insulin Glargine (Insulin Glargine,Hum.Rec.Anlog 100 Unit/Ml 10 Ml Vial) 10 unit SUBCUT DAILY [facility] Last Admin: 04/10/23 12:04 Dose: 10 unit Documented By: KACEY Insulin Human Lispro (Insulin Lispro 100 Unit/Ml 3 Ml Vial) 0 unit SUBCUT QIDACHS [facility]; Protocol Last Admin: 04/13/23 11:50 Dose: Not Given Documented By: CATHERINE Non-Admin Reason: No Insulin Coverage Levetiracetam (Levetiracetam 250 Mg Tablet) 750 mg PO BID [facility] Last Admin: 04/13/23 08:44 Dose: 750 mg Documented By: CATHERINE Magnesium Hydroxide (Milk Of Magnesia 30 Ml Oral.Susp) 30 ml PO DAILY PRN PRN Reason: Constipation Last Admin: 04/11/23 06:38 Dose: 30 ml Documented By: DEAN Nystatin (Nystatin Powder 15 Gm Bottle) 1 appl TOPICAL BID [facility]; Protocol Last Admin: 04/13/23 08:44 Dose: 1 appl Documented By: CATHERINE Ondansetron HCl (Ondansetron Hcl 4 Mg/2 Ml Vial) 4 mg IVPUSH Q8H PRN PRN Reason: Nausea and Vomiting Pharmacy Consult (Consult Rx Perform Med Rec) 1 each MISCELLANE ONCE PRN PRN Reason: Consult order Polyethylene Glycol (Polyethylene Glycol 3350 17 Gm Powd.Pack) 17 gm PO BID [facility] Last Admin: 04/13/23 08:44 Dose: 17 gm Documented By: CATHERINE Sodium Chloride (0.9 % Sodium Chloride Flush 3 Ml Syringe) 3 ml IVFLUSH QSHIFT [facility] Last Admin: 04/13/23 08:45 Dose: 3 ml Documented By: CATHERINE Tamsulosin HCl (Tamsulosin Hcl 0.4 Mg Capsule) 0.4 mg PO BEDTIME [facility] Last Admin: 04/12/23 21:12 Dose: 0.4 mg Documented By: LETICIA Thiamine HCl (Thiamine Hcl 100 Mg Tablet) 100 mg PO DAILY [facility] Last Admin: 04/13/23 08:42 Dose: 100 mg Documented By: CATHERINE Trazodone HCl (Trazodone Hcl 50 Mg Tablet) 50 mg PO DAILY [facility] Last Admin: 04/13/23 08:43 Dose: 50 mg Documented By: CATHERINE Zolpidem Tartrate (Zolpidem Tartrate 5 Mg Tablet) 5 mg PO BEDTIME [facility] Last Admin: 04/12/23 21:12 Dose: 5 mg Documented By: LETICIA Labs 04/10/23 06:39 04/11/23 05:28 Labs: Laboratory Results - last 24 hr 04/12/23 04/12/23 04/13/23 16:07 20:10 07:16 POC Glucose 168 H 152 H 101 04/13/23 11:12 POC Glucose 133 H Microbiology Microbiology Results: Microbiology 04/09/23 19:37 Blood Culture - Preliminary Blood - Venous Gram negative dena Assessment and Plan (1) Gram-negative bacteremia: Status: Acute (2) Cellulitis of leg, right: Status: Acute Plan 77-year-old male with history of DM, seizure disorder, FUENTES on CPAP, HLD, HTN, right ICA aneurysm, recent admit at [facility] for weakness and fall and discharged to [facility] for STR who presents with complaints of lethargy found to have sepsis/cellulitis and MATILDE Sepsis secondary to acute right lower extremity cellulitis sepsis resolved met criteria with tachycardia, tachypnea. acute lactic acidosis resolved with IVF initially treated with cefazolin, changed to zosyn given bacteremia until final blood culture results obtained cellulitis improved. GNR bacteremia 1/2 BCx positive may be secondary to cellulitis. UA negative for acute infection. belly CT from [facility] 04/06 with no infectious etiology continue IV zosyn as above Seen by ID, rec abdominal CT with po contrast - will order follow final culture results unable to be determined by lab - being sent out to reference lab MATILDE Scr down to 1.53 was 1.5 at [facility] on 04/07 hold aldactone resume lasix due to lower extremity swelling chronic constipation abdominal CT from [facility] with severe stool retention, was started on bowel regimen continue miralax increased to twice daily, colace scheduled had BM today diabetes Hba1c 6.6 records from [facility] indicated lantus was stopped recently, but was listed on med rec from [facility]. will hold for now. did received Lantus 04/10 follow insulin needs on sliding scale, resume lantus as needed follow POCs, ada diet presumed CHF, unspecified aldactone on hold for MATILDE will resume lasix due to leg edema hypertension continue clonidine HLD continue statin seizure disorder continue keppra BPH recently started on flomax, proscar mood continue home meds morbid obesity BMI 42.4 weight loss encouraged hold semaglutide fuentes cpap DVT prophylaxis: Eliquis- was on list from [facility]. pt and son do not know indication attending - Dr. Portillo DISPO plan for STR when medically clear requires ongoing inpatient hospitalization for IV antibiotics and close monitoring due to bacteremia/sepsis Time Spent With Patient Time: Total time managing care of this patient today ____ minutes. Quality Stroke Does the patient have a stroke diagnosis?: No VTE Prior VTE?: No VTE Risk Level:: Medical - moderate - high VTE Device Contraindication: Treatment Not Indicated VTE Drug Contraindication: N/A - Med Ordered
--- NOTE | 2023-04-13 13:29 | MHC.CM.PN ---
pper rounds pt growing bacteria no dc date at this time dc plan remains return to oc
[2023-04-13] MEDS: Barium Sulfate Oral (Vanilla) 450 ML ORAL.SUSP 900 ML PO (14:44)
[2023-04-13 16:00] VITALS: BP 143/92; PULSE 73; RESP 20; TEMP 36.6; O2SAT 97
[2023-04-13 16:43] LABS: Glucose, Whole Blood 155 mg/dL (60-115)
[2023-04-13] MEDS: Insulin Lispro 100 UNIT/ML 3 ML VIAL SUBCUT ×2 (16:50→21:05)
[2023-04-13 19:44] VITALS: BP 138/66; PULSE 84; RESP 20; TEMP 36.8; O2SAT 94
[2023-04-13 20:31] LABS: Glucose, Whole Blood 193 mg/dL (60-115)
[2023-04-13] MEDS: Zolpidem Tartrate 5 MG TABLET PO (21:05)
[2023-04-13] MEDS: Tamsulosin HCL 0.4 MG CAPSULE PO (21:05)
[2023-04-13] MEDS: Atorvastatin Calcium 80 MG TABLET PO (21:06)
[2023-04-13] MEDS: Artificial Tears 15 ML DROPS 1 DROP EYE-BOTH (21:07)
[2023-04-14] MEDS: 0.9 % Sodium Chloride Flush 3 ML SYRINGE IVFLUSH ×3 (00:29→15:25)
[2023-04-14] MEDS: Piperacillin Sodium/Tazobactam 3.375 GM in 0.9 % Sodium Chloride 50 ML IV ×4 (00:30→18:10)
[2023-04-14 03:20] VITALS: BP 149/73; PULSE 71; RESP 16; TEMP 36; O2SAT 97
[2023-04-14 07:30] LABS: Glucose, Whole Blood 133 mg/dL (60-115)
[2023-04-14 08:00] VITALS: BP 133/77; PULSE 89; RESP 17; TEMP 36.3; O2SAT 98
[2023-04-14 08:06] VITALS: BP 149/73; PULSE 71; O2SAT 97
[2023-04-14] MEDS: Gabapentin 600 MG TABLET PO ×2 (09:07→20:27)
[2023-04-14] MEDS: cloNIDine HCL 0.2 MG TABLET PO ×3 (09:07→20:26)
[2023-04-14] MEDS: Escitalopram Oxalate 5 MG TABLET 15 MG PO (09:07)
[2023-04-14] MEDS: Docusate Sodium 100 MG CAPSULE PO (09:07)
[2023-04-14] MEDS: levETIRAcetam 250 MG TABLET 750 MG PO ×2 (09:08→20:27)
[2023-04-14] MEDS: Finasteride 5 MG TABLET PO (09:08)
[2023-04-14] MEDS: diazePAM 2 MG TABLET PO ×2 (09:08→20:27)
[2023-04-14] MEDS: traZODone HCL 50 MG TABLET PO (09:08)
[2023-04-14] MEDS: Thiamine HCL 100 MG TABLET PO (09:08)
[2023-04-14] MEDS: Apixaban 5 MG TABLET PO ×2 (09:08→20:27)
[2023-04-14] MEDS: Nystatin Powder 15 GM BOTTLE 1 APPL TOPICAL ×2 (09:09→20:29)
[2023-04-14] MEDS: polyethylene glycoL 3350 17 GM POWD.PACK PO ×2 (09:09→20:26)
[2023-04-14] MEDS: ARIPiprazole 5 MG TABLET PO (09:10)
[2023-04-14 10:53] LABS: Anion Gap 13 (12-20); Blood Urea Nitrogen 25 mg/dL (9-16); Carbon Dioxide 28 mmol/L (22-29); Chloride 99 mmol/L (96-108); Creatinine Clr Calc Pharmacy 52.3; Estimated Glomerular Filt Rate 41; Glucose Random 196 mg/dL (60-115); Potassium 4.3 mmol/L (3.3-5.1); Sodium 136 mmol/L (135-145)
[2023-04-14 11:37] LABS: Glucose, Whole Blood 183 mg/dL (60-115)
[2023-04-14] MEDS: Insulin Lispro 100 UNIT/ML 3 ML VIAL SUBCUT ×3 (11:47→20:36)
--- NOTE | 2023-04-14 13:34 | P.PNIM_ITS ---
Subjective Subjective Date of Service: 04/14/23 Interval History: seen and examined this morning follow up for GNR bacteremia, RLE cellulitis, leg edema lower extremity edema improving with IV Lasix, more mobile today no overnight events, no specific complaints Constitutional Constitutional: Denies chills and Denies fever(s) ENT Ears, Nose, Mouth, and Throat: Denies dizziness Cardiovascular Cardiovascular: Denies chest pain, Denies palpitations and Denies dyspnea Respiratory Respiratory: Denies cough and Denies dyspnea Gastrointestinal Gastrointestinal: Denies abdominal pain, Denies nausea and Denies vomiting Neurologic Neurologic: Denies dizziness Endocrine Endocrine: Denies palpitations Physical Exam Vital Signs: Vital Signs: Last Vital Signs Temp 97.4 F 04/14/23 08:00 Pulse 71 04/14/23 08:06 Resp 17 04/14/23 08:00 BP 149/73 H 04/14/23 08:06 Pulse Ox 97 04/14/23 08:06 O2 Del Method Room Air 04/14/23 08:00 BMI result Body Mass Index 42.4 Const: General: cooperative and comfortable; No alert or awake Nutritional Appearance: obese Orientation/consciousness: patient oriented x3 Resp: Effort & Inspection: normal respiratory effort, able to speak in complete sentences, no respiratory distress and no use of accessory muscles Auscultation: not clear to auscultation bilaterally Cardio: Rate: regular rate Heart sounds: S1 normal heart sound present and S2 normal heart sound present GI: Inspection: No distended Palpation (GI): Soft to palpation and nontender Skin: Other: no erythema b/l legs Neuro: General: patient oriented x3, moves all extremities and CN's II-XI intact bilaterally Extrem: Other: b/l leg edema, improving from yesterday Objective Data Active Medications Acetaminophen (Acetaminophen 325 Mg Tablet) 650 mg PO Q6H PRN PRN Reason: Pain, Mild (Pain Scale 1-3) Last Admin: 04/12/23 16:33 Dose: 650 mg Documented By: LETICIA Apixaban (Apixaban 5 Mg Tablet) 5 mg PO BID [facility] Last Admin: 04/14/23 09:08 Dose: 5 mg Documented By: CATHERINE Aripiprazole (Aripiprazole 5 Mg Tablet) 5 mg PO DAILY [facility] Last Admin: 04/14/23 09:10 Dose: 5 mg Documented By: CATHERINE Artificial Tears (Artificial Tears 15 Ml Drops) 1 drop EYE-BOTH BID [facility] Last Admin: 04/14/23 09:10 Dose: Not Given Documented By: CATHERINE Non-Admin Reason: Patient Refused Atorvastatin Calcium (Atorvastatin Calcium 80 Mg Tablet) 80 mg PO BEDTIME [facility] Last Admin: 04/13/23 21:06 Dose: 80 mg Documented By: FUENTES Clonidine HCl (Clonidine Hcl 0.2 Mg Tablet) 0.2 mg PO TID [facility]; Protocol Last Admin: 04/14/23 09:07 Dose: 0.2 mg Documented By: CATHERINE Dextrose (Dextrose 50 % 25 Gm/50 Ml Syringe) 25 gm IVPUSH Q15M PRN; Protocol PRN Reason: per Hypoglycemia Standing Ord. Diazepam (Diazepam 2 Mg Tablet) 2 mg PO BID [facility] Last Admin: 04/14/23 09:08 Dose: 2 mg Documented By: CATHERINE Docusate Sodium (Docusate Sodium 100 Mg Capsule) 100 mg PO DAILY [facility] Last Admin: 04/14/23 09:07 Dose: 100 mg Documented By: CATHERINE Escitalopram Oxalate (Escitalopram Oxalate 5 Mg Tablet) 15 mg PO DAILY [facility] Last Admin: 04/14/23 09:07 Dose: 15 mg Documented By: CATHERINE Finasteride (Finasteride 5 Mg Tablet) 5 mg PO DAILY [facility] Last Admin: 04/14/23 09:08 Dose: 5 mg Documented By: CATHERINE Furosemide (Furosemide 40 Mg Tablet) 40 mg PO DAILY [facility]; Protocol Last Admin: 04/14/23 10:04 Dose: Not Given Documented By: CATHERINE Non-Admin Reason: per Gabapentin (Gabapentin 600 Mg Tablet) 600 mg PO BID [facility] Last Admin: 04/14/23 09:07 Dose: 600 mg Documented By: CATHERINE Glucose (Glucose Gel 15 Gm Gel..Gram.) 15 gm PO Q15M PRN; Protocol PRN Reason: per Hypoglycemia Standing Ord. Piperacillin Sod/Tazobactam (Sod 3.375 gm/ Sodium Chloride) 50 mls @ 100 mls/hr IV Q6H [facility] Last Infusion: 04/14/23 13:07 Dose: 100 mls/hr Documented By: CATHERINE Insulin Glargine (Insulin Glargine,Hum.Rec.Anlog 100 Unit/Ml 10 Ml Vial) 10 unit SUBCUT DAILY [facility] Last Admin: 04/10/23 12:04 Dose: 10 unit Documented By: KACEY Insulin Human Lispro (Insulin Lispro 100 Unit/Ml 3 Ml Vial) 0 unit SUBCUT QIDACHS [facility]; Protocol Last Admin: 04/14/23 11:47 Dose: 2 unit Documented By: CATHERINE Levetiracetam (Levetiracetam 250 Mg Tablet) 750 mg PO BID [facility] Last Admin: 04/14/23 09:08 Dose: 750 mg Documented By: CATHERINE Magnesium Hydroxide (Milk Of Magnesia 30 Ml Oral.Susp) 30 ml PO DAILY PRN PRN Reason: Constipation Last Admin: 04/11/23 06:38 Dose: 30 ml Documented By: DEAN Nystatin (Nystatin Powder 15 Gm Bottle) 1 appl TOPICAL BID [facility]; Protocol Last Admin: 04/14/23 09:09 Dose: 1 appl Documented By: CATHERINE Ondansetron HCl (Ondansetron Hcl 4 Mg/2 Ml Vial) 4 mg IVPUSH Q8H PRN PRN Reason: Nausea and Vomiting Pharmacy Consult (Consult Rx Perform Med Rec) 1 each MISCELLANE ONCE PRN PRN Reason: Consult order Polyethylene Glycol (Polyethylene Glycol 3350 17 Gm Powd.Pack) 17 gm PO BID [facility] Last Admin: 04/14/23 09:09 Dose: 17 gm Documented By: CATHERINE Sodium Chloride (0.9 % Sodium Chloride Flush 3 Ml Syringe) [facility] Last Admin: 04/14/23 09:09 Dose: 3 ml Documented By: CTAHERINE Tamsulosin HCl (Tamsulosin Hcl 0.4 Mg Capsule) 0.4 mg PO BEDTIME [facility] Last Admin: 04/13/23 21:05 Dose: 0.4 mg Documented By: FUENTES Thiamine HCl (Thiamine Hcl 100 Mg Tablet) 100 mg PO DAILY [facility] Last Admin: 04/14/23 09:08 Dose: 100 mg Documented By: CATHERINE Trazodone HCl (Trazodone Hcl 50 Mg Tablet) 50 mg PO DAILY [facility] Last Admin: 04/14/23 09:08 Dose: 50 mg Documented By: CATHERINE Zolpidem Tartrate (Zolpidem Tartrate 5 Mg Tablet) 5 mg PO BEDTIME [facility] Last Admin: 04/13/23 21:05 Dose: 5 mg Documented By: FUENTES Labs 04/10/23 06:39 04/14/23 10:34 Labs: Laboratory Results - last 24 hr 04/13/23 04/13/23 04/14/23 16:32 20:15 07:19 Anion Gap Estim Creat Clear Calc Estimated GFR POC Glucose 155 H 193 H 133 H Random Glucose Calcium 04/14/23 04/14/23 10:34 11:30 Anion Gap 13 Estim Creat Clear Calc 52.3 Estimated GFR 41 POC Glucose 183 H Random Glucose 196 H Calcium 10.0 Assessment and Plan (1) Gram-negative bacteremia: Status: Acute (2) Cellulitis of leg, right: Status: Acute Plan 77-year-old male with history of DM, seizure disorder, FUENTES on CPAP, HLD, HTN, right ICA aneurysm, recent admit at [facility] for weakness and fall and discharged to [facility] for STR who presents with complaints of lethargy found to have sepsis/cellulitis and MATILDE Sepsis secondary to acute right lower extremity cellulitis sepsis resolved met criteria with tachycardia, tachypnea. acute lactic acidosis resolved with IVF initially treated with cefazolin, changed to zosyn given bacteremia until final blood culture results obtained cellulitis improved. GNR bacteremia 1/2 BCx positive may be secondary to cellulitis. UA negative for acute infection. belly CT from [facility] [place]06 with no infectious etiology. repeat abdominal CT with po contrast without source of infection. continue IV zosyn as above ID rec 14 days total of abx on discharge likely doxycycline follow final culture results unable to be determined by lab - being sent out to reference lab MATILDE Scr down to 1.63 was 1.5 at [facility] [place] 04[place]07 hold aldactone resume lasix due to lower extremity swelling chronic constipation abdominal CT from [facility] with severe stool retention, was started on bowel regimen continue miralax increased to twice daily, colace scheduled had diabetes Hba1c 6.6 records from [facility] indicated lantus was stopped recently, but was listed on med rec from SNF. will hold for now. did received Lantus 04/10 follow insulin needs on sliding scale, resume lantus as needed follow POCs, ada diet presumed CHF, unspecified aldactone on hold for MATILDE will resume lasix due to leg edema hypertension continue clonidine HLD continue statin seizure disorder continue keppra BPH recently started on flomax, proscar mood continue home meds morbid obesity BMI 42.4 weight loss encouraged hold semaglutide fuentes cpap DVT prophylaxis: Eliquis- was on list from SNF. pt and son do not know indication. called SNF confirmed Eliquis was started at the facility although they were unable to indicate reason, but will continue attending - Dr. Bandar DOLL plan for STR when medically clear requires ongoing inpatient hospitalization for IV antibiotics and close monitoring due to bacteremia/sepsis Time Spent With Patient Time: Total time managing care of this patient today ____ minutes. Quality Stroke Does the patient have a stroke diagnosis?: No VTE Prior VTE?: No VTE Risk Level:: Medical - moderate - high VTE Device Contraindication: Treatment Not Indicated VTE Drug Contraindication: N/A - Med Ordered
[2023-04-14] MEDS: Furosemide 20 MG/2 ML VIAL IVPUSH (15:02)
[2023-04-14 15:41] VITALS: BP 154/73; PULSE 74; RESP 20; TEMP 36; O2SAT 98
[2023-04-14 16:23] LABS: Glucose, Whole Blood 175 mg/dL (60-115)
[2023-04-14 19:50] VITALS: BP 157/75; PULSE 69; RESP 19; TEMP 36.7; O2SAT 96
[2023-04-14] MEDS: Tamsulosin HCL 0.4 MG CAPSULE PO (20:27)
[2023-04-14] MEDS: Atorvastatin Calcium 80 MG TABLET PO (20:27)
[2023-04-14] MEDS: Zolpidem Tartrate 5 MG TABLET PO (20:27)
[2023-04-14 20:28] LABS: Glucose, Whole Blood 165 mg/dL (60-115)
[2023-04-14] MEDS: Artificial Tears 15 ML DROPS 1 DROP EYE-BOTH (20:29)
[2023-04-15] MEDS: 0.9 % Sodium Chloride Flush 3 ML SYRINGE IVFLUSH ×2 (00:05→07:59)
[2023-04-15] MEDS: Piperacillin Sodium/Tazobactam 3.375 GM in 0.9 % Sodium Chloride 50 ML IV ×3 (00:05→11:13)
[2023-04-15 03:38] VITALS: BP 128/68; PULSE 72; RESP 19; TEMP 36.4; O2SAT 98
[2023-04-15 07:22] LABS: Glucose, Whole Blood 147 mg/dL (60-115)
[2023-04-15 07:33] VITALS: BP 139/66; PULSE 83; RESP 18; TEMP 36.7; O2SAT 96
[2023-04-15] MEDS: Escitalopram Oxalate 5 MG TABLET 15 MG PO (07:59)
[2023-04-15] MEDS: cloNIDine HCL 0.2 MG TABLET PO ×2 (08:00→14:09)
[2023-04-15] MEDS: Finasteride 5 MG TABLET PO (08:00)
[2023-04-15] MEDS: levETIRAcetam 250 MG TABLET 750 MG PO (08:00)
[2023-04-15] MEDS: ARIPiprazole 5 MG TABLET PO (08:00)
[2023-04-15] MEDS: Furosemide 40 MG TABLET PO (08:01)
[2023-04-15] MEDS: Apixaban 5 MG TABLET PO (08:01)
[2023-04-15] MEDS: diazePAM 2 MG TABLET PO (08:01)
[2023-04-15] MEDS: Docusate Sodium 100 MG CAPSULE PO (08:01)
[2023-04-15] MEDS: polyethylene glycoL 3350 17 GM POWD.PACK PO (08:01)
[2023-04-15] MEDS: Gabapentin 600 MG TABLET PO (08:01)
[2023-04-15] MEDS: traZODone HCL 50 MG TABLET PO (08:04)
[2023-04-15] MEDS: Thiamine HCL 100 MG TABLET PO (08:04)
[2023-04-15] MEDS: Nystatin Powder 15 GM BOTTLE 1 APPL TOPICAL (08:07)
--- NOTE | 2023-04-15 10:24 | P.DS_ITS ---
DS: Providers Provider Date of Service: 04/15/23 Date of admission: 04/09/23 22:01 Date of discharge: 04/15/23 Primary care physician: LEEANN Kruse Consults: 04/10/23 12:17 Consult to Infectious Diseases Routine Consulting Provider: [facility] [place] Infectious Disease Reason for consultation: cellulitis, GNR bacteremia Has provider been notified: No Attending physician on discharge: Jim Portillo Discharging clinician: Vanita Spence DS: Diagnosis Discharge Diagnosis (1) Gram-negative bacteremia: Status: Acute (2) Cellulitis of leg, right: Status: Acute DS: Summary Hospital Course Hospital Course: From H&P on day of admission This is a 77-year-old male past medical history of hypertension, diabetes, comes into the hospital with complaints of increased lethargy.? Patient was seen at outside hospital recently for further workup of generalized weakness, according to his daughter neuro source was found, patient was sent to rehab.? His daughter checked on him today at rehab center and found him to be very weak and lethargic therefore brought him to the hospital.? Patien t has no acute complaints denies any chest pain, no shortness of breath, no abdominal pain nausea or vomiting, no diarrhea constipation, no urinary symptoms and no lower extremity edema.? When asked about his leg he has says that he noticed this redness for about few days. On arrival to the ED patient has tachycardia and tachypnea, blood pressure stable Labs are significant for WBC count of 10.3, creatinine of 1.91, lactic acid of 2.4, UA negative, Chest x-ray negative Sepsis secondary to acute right lower extremity cellulitis met criteria with tachycardia, tachypnea. acute lactic acidosis resolved with IVF. sepsis resolved. initially treated with cefazolin, changed to zosyn given bacteremia. cellulitis resolved with antibiotics. GNR bacteremia 1/2 blood cultures returned positive for GNR. may be secondary to cellulitis. UA negative for acute infection. belly CT from [facility] [place] 04/06 with no infectious etiology. repeat abdominal CT with po contrast without source of infection. final culture results unable to be determined by lab - being sent out to reference lab. discussed with ID recommended 7 days of po doxycycline upon discharge MATILDE Scr down to 1.63 was 1.5 at [facility] on 04/07. aldactone and lasix were initially held, lasix was resumed 04/13 due to increasing lower extremity edema. Leg edema. He received a dose of IV lasix which significantly improved leg swelling, but he does have persistent swelling. recommend to keep legs elevated when able and continue Ralf stockings versus Johnson wraps. Continue home dose of Lasix and increase as needed. No respiratory symptoms. Unclear why patient is anticoagulated with Eliquis. Facility was contacted and they were able to confirm that it was started at [facility] but they were unable to provide an etiology for the initiation of the medication. will continue eliquis upon discharge. Plan to return to SNF to continue rehab Time Spent with Patient Time attestation: Total time managing care of this patient today ____ minutes. Discharge coordination time: Greater than 30 minutes Quality: Safe Use of Opioids Does Pt have an Active Cancer Diagnosis on the Problem List?: No Quality: Stroke Does the patient have a stroke diagnosis?: No Physical Exam Vital Signs: Vital Signs: Last Vital Signs Temp 98.1 F 04/15/23 07:33 Pulse 83 04/15/23 07:33 Resp 18 04/15/23 07:33 BP 139/66 04/15/23 07:33 Pulse Ox 96 04/15/23 07:33 O2 Del Method Room Air 04/15/23 07:33 BMI result Body Mass Index 42.4 Const: General: cooperative, comfortable, no acute distress, alert and awake Orientation/consciousness: patient oriented x3 Resp: Effort & Inspection: normal respiratory effort, able to speak in complete sentences, no respiratory distress and no use of accessory muscles Auscultation: not clear to auscultation bilaterally Cardio: Rate: regular rate Heart sounds: S1 normal heart sound present and S2 normal heart sound present GI: Inspection: No distended Palpation (GI): Soft to palpation and nontende r Skin: Other: no erythema b/l legs Neuro: General: patient oriented x3, moves all extremities and CN's II-XI intact bilaterally Extrem: Other: bilateral lower extremity edema DS: Data Data Completed and Pending Labs on day of discharge: Laboratory Results - last 24 hr 04/14/23 04/14/23 04/14/23 10:34 11:30 16:12 Sodium 136 Potassium 4.3 Chloride 99 Carbon Dioxide 28 Anion Gap 13 BUN 25 H Creatinine 1.63 H Estim Creat Clear Calc 52.3 Estimated GFR 41 POC Glucose 183 H 175 H Random Glucose 196 H Calcium 10.0 04/14/23 04/15/23 20:19 07:16 Sodium Potassium Chloride Carbon Dioxide Anion Gap BUN Creatinine Estim Creat Clear Calc Estimated GFR POC Glucose 165 H 147 H Random Glucose Calcium Preliminary micro results at discharge 04/09/23 19:37 Blood Culture - Preliminary Blood - Venous Gram negative dena Discharge Plan Discharge Anticipated Discharge Date/Time: 04/15/23 13:00 Patient Disposition: Xfer SNF Discharge Diagnosis: MATILDE sepsis secondary to Right leg cellulitis lower extremity edema GNR bacteremia Referrals: [facility] [Other] - 1 Week Luiz Grey PA [Primary Care Provider] - 1 Week Discharge Medications: New doxycycline hyclate 100 mg tablet 100 mg PO BID 7 Days Qty: 14 0RF Continued furosemide 40 mg tablet 40 mg PO DAILY atorvastatin 80 mg tablet 80 mg PO BEDTIME clonidine HCl 0.2 mg tablet 0.2 mg PO TID levetiracetam 750 mg tablet 750 mg PO BID multivitamin Tablet 1 tab PO DAILY gabapentin 600 mg tablet 600 mg PO BID trazodone 50 mg Tablet 25 mg PO DAILY polyethylene glycol 3350 [Miralax] 17 gram Powder In Packet 17 g PO DAILY thiamine HCl (vitamin B1) 100 mg Tablet 100 mg PO DAILY tamsulosin 0.4 mg Capsule 0.4 mg PO BEDTIME diazepam 2 mg Tablet 2 mg PO BID zolpidem 5 mg Tablet 10 mg PO BEDTIME nystatin 100,000 unit/gram Powder 1 appl TOPICAL BID finasteride 5 mg Tablet 5 mg PO DAILY escitalopram oxalate 10 mg Tablet 15 mg PO DAILY aripiprazole 5 mg Tablet 5 mg PO DAILY insulin glargine [Lantus Solostar U-100 Insulin] 100 unit/mL (3 mL) Insulin Pen 15 unit SUBCUT QAM semaglutide (weight loss) 1.7 mg/0.75 mL Pen Injector 1.7 mg SUBCUT QWEEK carboxymethylcellulose sodium 0.5 % Drops 1 drp OPHTHALMIC (EYE) BID insulin lispro [Humalog KwikPen Insulin] 100 unit/mL Insulin Pen 1 sliding scale dose SUBCUT USEASDIRECTD apixaban 5 mg Tablet 5 mg PO BID docusate sodium 100 mg Capsule 100 mg PO DAILY PRN (Reason: Constipation) Qty: 1 0RF Held spironolactone 25 mg tablet 25 mg PO DAILY Hold Instructions: repeat chemistry next week, resume as indicated Discharge Orders: Discharge Order (Routine); Ordered 04/15/23 Ordered By: Vanita Spence Activity on Discharge: As tolerated Stand Alone Forms: Patient Portal Discharge page Care Plan Goals: see below Health Concerns: sepsis secondary to right leg cellulitis - resolved MATILDE - resolved leg edema GNR bacteremia Plan of Treatment: for leg edema, keep legs elevated when able, continue teds stocking or johnson wraps GNR bacteremia - blood cultures sent out to reference lab - final results pending. complete course of doxycycline - 7 days MATILDE - renal function improved to 1.6 range, lasix resumed due to leg edema. recommend repeat chemistry/follow renal function next week and periodically after that. if renal function remains stable can resume aldactone Assessment: see discharge summary
[2023-04-15 10:34] VITALS: BP 139/66; PULSE 83; O2SAT 96
[2023-04-15 11:15] LABS: Glucose, Whole Blood 213 mg/dL (60-115)
[2023-04-15] MEDS: Insulin Lispro 100 UNIT/ML 3 ML VIAL SUBCUT (11:41)
[2023-04-15 15:06] VITALS: BP 156/70; PULSE 96; RESP 18; TEMP 36.8; O2SAT 97
--- NOTE | 2023-04-15 15:16 | MHC.CM.PN ---
pt dcd back to [facility] pt needs [facility] auth which gilbert bishop waiting for lisa on a will call
--- NOTE | 2023-04-15 15:28 | MHC.CM.PN ---
received [facility] auth pt will be leaving to return to [facility] transportation thru [facility]
[2023-04-15 16:29] LABS: Glucose, Whole Blood 205 mg/dL (60-115)
== END 2023-04-15 16:54 | disposition skilled nursing facility (03) | DRG 872 ==
LOC: HO.ED 21:30 → HO.EDOVER 22:06 → HO.S3 04-10 05:20
PROVIDERS: Nurse Practitioner Acute Care; Admitting Provider Internal Medicine; Emergency Provider Emergency Medicine; PCP Physician Assistant; Visit Provider Physician Assistant Medical
DX: A41.9 Sepsis, unspecified organism (principal); L03.115 Cellulitis of right lower limb; N17.9 Acute kidney failure, unspecified; Z68.41 Body mass index [BMI] 40.0-44.9, adult; E87.21 Acute metabolic acidosis; K59.09 Other constipation; I50.9 Heart failure, unspecified; I11.0 Hypertensive heart disease with heart failure; F39 Unspecified mood [affective] disorder; G40.909 Epilepsy, unspecified, not intractable, without status epilepticus; G47.33 Obstructive sleep apnea (adult) (pediatric); E86.0 Dehydration; E66.01 Morbid (severe) obesity due to excess calories; Z71.3 Dietary counseling and surveillance; Z87.891 Personal history of nicotine dependence; Z79.4 Long term (current) use of insulin; Z79.01 Long term (current) use of anticoagulants; Z79.899 Other long term (current) drug therapy
CPT/HCPCS: 36415; 71045; 74176; 80048; 80076; 81001; 82947; 83605; 83880; 84484; 85025; 85610; 85730; 87040; 87077; 87186; 87205; 93005; 97162; 97530; 99285; J0690; J1650; J1940; J2543; J3370

== ENCOUNTER → 2023-04-09 18:09 | Outpatient (BNV) | payer MEDICARE, BC, SELFPAY | PROVIDERS: Admitting Provider Internal Medicine; Emergency Provider Emergency Medicine; PCP Physician Assistant; Visit Provider Internal Medicine Cardiovascular Disease | DX: R00.0 Tachycardia, unspecified (principal) | CPT/HCPCS: 93010 ==

== ENCOUNTER → 2023-04-09 22:01 | Outpatient (BNV) | payer MEDICARE, BC, SELFPAY | PROVIDERS: Admitting Provider Internal Medicine; Emergency Provider Emergency Medicine; PCP Physician Assistant; Visit Provider Internal Medicine | DX: A41.9 Sepsis, unspecified organism (principal) | CPT/HCPCS: 99222 ==

== ENCOUNTER → 2023-04-09 22:01 | Outpatient (BNV) | payer MEDICARE, BC, SELFPAY | PROVIDERS: Admitting Provider Internal Medicine; Emergency Provider Emergency Medicine; PCP Physician Assistant; Visit Provider Internal Medicine | DX: R78.81 Bacteremia (principal); L03.115 Cellulitis of right lower limb | CPT/HCPCS: 99223; 99232; 99233; 99239 ==

== ENCOUNTER 2023-04-22 09:01 | Inpatient (IN) | payer OTHER, MEDICARE, BC, SELFPAY ==
--- NOTE | ~2023-04-22 | US_ITS ---
EXAMINATION: US VENOUS ULTRASOUND WITH DOPPLER LOWER EXTREMITY, RIGHT CLINICAL INFORMATION: Right lower extremity swelling. COMPARISON: None available. TECHNIQUE: Ultrasound of the deep veins is performed from the hip to the calf with compression sonography and color and pulse Doppler assessment. Spectral analysis with color-flow imaging is performed. FINDINGS: There is normal venous compression and respiratory variation and augmented flow. The visualized common femoral vein, superficial femoral vein, profunda femoral vein, popliteal vein, and the trifurcation region shows no evidence of deep venous thrombosis. A complex right popliteal cyst is seen measuring 4.6 x 3.1 x 2.5 cm. Color Doppler showed no abnormal vascular flow. Mild subcutaneous edema in the right calf. US/US venous duplex LE RT IMPRESSION: 1. No evidence for deep venous thrombosis in the visualized veins of the right lower extremity. 2. Complex right popliteal cyst. 3. Mild subcutaneous edema in the right calf.
[2023-04-22 09:06] VITALS: BP 162/87; BP 172/55; PULSE 79; PULSE 83; RESP 20; TEMP 36.6; O2SAT 98; BMI 42.9
--- NOTE | 2023-04-22 09:23 | ED.GENADULT ---
HPI - General Adult General Chief complaint: Extremity Injury, Lower Stated complaint: From SNF, R lower leg swelling per EMS Time Seen by Provider: 04/22/23 10:58 Source: patient Mode of arrival: ambulatory Limitations: no limitations History of Present Illness HPI narrative: 77 year old male with PMHx of HTN, T2DM with diabetic neuropathy, epilepsy, depression and anxiety, BPH, presenting to the ED via EMS from [facility] with swelling and redness to his RLE a s/p admission to [facility] on 04/09 for cellulitis of the RLE, sepsis, and MATILDE. Patient was discharged on 04/14 with Doxycycline rx for continued outpatient treatment of cellulitis. He states that he's completed his course of antibiotics however his RLE swelling and redness has not resolved. Patient is anticoagulated on Eliquis. Denies fever, chills, chest pain, SOB, palpitations, N/V, abd pain, LE pain. Related Data Home Medications Medication Instructions Recorded Confirmed apixaban 5 mg tablet 5 mg PO BID 04/10/23 04/10/23 aripiprazole 5 mg tablet 5 mg PO DAILY 04/10/23 04/10/23 atorvastatin 80 mg tablet 80 mg PO BEDTIME 04/10/23 04/10/23 carboxymethylcellulose sodium 0.5 1 drp ophthalmic (eye) BID 04/10/23 04/10/23 % eye drops clonidine HCl 0.2 mg tablet 0.2 mg PO TID 04/10/23 04/10/23 diazepam 2 mg tablet 2 mg PO BID 04/10/23 04/10/23 escitalopram oxalate 10 mg tablet 15 mg PO DAILY 04/10/23 04/10/23 finasteride 5 mg tablet 5 mg PO DAILY 04/10/23 04/10/23 furosemide 40 mg tablet 40 mg PO DAILY 04/10/23 04/10/23 gabapentin 600 mg tablet 600 mg PO BID 04/10/23 04/10/23 insulin glargine 100 unit/mL (3 15 unit subcut QAM 04/10/23 04/10/23 mL) subcutaneous pen (Lantus Solostar U-100 Insulin) insulin lispro 100 unit/mL 1 sliding scale dose subcut 04/10/23 04/10/23 subcutaneous pen (Humalog KwikPen USEASDIRECTD (U-100) Insulin) levetiracetam 750 mg tablet 750 mg PO BID 04/10/23 04/10/23 multivitamin 1 tab PO DAILY 04/10/23 04/10/23 nystatin 100,000 unit/gram topical 1 appl topical BID 04/10/23 04/10/23 powder polyethylene glycol 3350 17 gram 17 g PO DAILY 04/10/23 04/10/23 oral powder packet (Miralax) semaglutide (weight loss) 1.7 1.7 mg subcut QWEEK 04/10/23 04/10/23 mg/0.75 mL subcutaneous pen injector spironolactone 25 mg tablet 25 mg PO DAILY 04/10/23 04/10/23 tamsulosin 0.4 mg capsule 0.4 mg PO BEDTIME 04/10/23 04/10/23 thiamine HCl (vitamin B1) 100 mg 100 mg PO DAILY 04/10/23 04/10/23 tablet trazodone 50 mg tablet 25 mg PO DAILY 04/10/23 04/10/23 zolpidem 5 mg tablet 10 mg PO BEDTIME 04/10/23 04/10/23 Previous Rx's Medication Instructions Recorded docusate sodium 100 mg capsule 100 mg PO DAILY PRN Constipation 04/15/23 #1 cap doxycycline hyclate 100 mg tablet 100 mg PO BID 7 days #14 tabs 04/15/23 Allergies Allergy/AdvReac Type Severity Reaction Status Date / Time codeine Allergy Unknown Verified 04/10/23 15:35 Review of Systems Review of Systems: Constitutional : No Weight loss, No Fever, No Chills, No Fatigue, No Malaise ENT/Mouth : No sore throat, No Rhinorrhea Eyes: No Eye Pain, No Swelling, No Redness Cardiovascular : No Chest Pain, No SOB, No Dyspnea on Exertion, No Orthopnea, No Edema, No Palpitations Respiratory : No Cough, No Sputum, No Wheezing Gastrointestinal : No Nausea, No Vomiting, No Diarrhea, No Constipation, No abdominal Pain Genitourinary : No Dysuria, No Urinary Frequency, No Hematuria, Musculoskeletal : No joint pain, No Myalgias, No Joint Swelling, +RLE swelling, redness Skin : No rash Neuro : No Weakness, No Numbness, No Dizziness, No Headache Psych : No Anxiety/Panic, No Depression All other systems reviewed and are negative Yes all other systems are reviewed and are negative [facility] Past Medical History Attestation statement: The following information was validated with the patient. Source: old records reviewed and nursing notes reviewed Medical History Gram-negative bacteremia Social History Social History Household Members: Family Housing: House Do you presently have visiting nurse or other home services: No Alcohol intake: unknown Patient Tobacco Use Status: Former Tobacco user Smoked in Last 30 Days: No Second Hand Smoke Exposure: No Use of substances other than those prescribed or required for medical reasons: No Advance Directives: Yes Advance Directives on File: Yes Advance Directives Date on File: 04/18/23 service: Yes Physical Exam ED Vital Signs: Vital Signs - 24 hr 04/22/23 09:06 04/22/23 11:01 Temperature 97.9 F Pulse Rate 79 77 Respiratory Rate 20 18 Blood Pressure 172/55 H 116/54 L Pulse Oximetry 98 97 Oxygen Delivery Method Room Air Room Air BMI result Body Mass Index 42.9 Appearance: Alert.? Oriented X3.? No acute distress.? Head: Normocephalic, atraumatic, no step-offs or deformities Eyes: Pupils equal, round and reactive to light.?? Neck: Normal inspection.? Neck supple.? No JVD CVS: Normal heart rate and rhythm.? Pulses normal.? Respiratory: No respiratory distress.? Breath sounds normal.? Abdomen: Soft and nontender.? Skin: Skin warm and dry.? Normal skin color.? Normal skin turgor.? Extremities: Edema and erythema noted to the right lower extremity, warm to the touch from the knee down? No calf ttp. 5/5 strength to bilateral upper and lower extremities. Neurovascularly intact Neuro: Oriented X 3.? No motor deficit.? No sensory deficit. CN 2-12 intact Course Reevaluation(s) Reevaluation #1: CBC appears to be around patient's baseline. Chemistry unremarkable. Ultrasound venous duplex of right lower extremity with no evidence of DVT. Complex right popliteal cyst. Mild subcutaneous edema in the right calf, patient did fail p.o. antibiotics will reach out to hospitalist for hospital admission. Patient anticoagulated. Unlikely arterial or venous occlusion. Plan hospital admission Time: 11:08 Reevaluation #2: Patient to be admitted. Time: 12:02 Medical Decision Making Medical Decision Making MDM Narrative: 1000 77 yo male, complaint of a erythema/edema to the right lower extremity S/P outpatient treatment with doxy PE: erythema and edema of the RLE, NV intact Clinical concern for cellulitis, unlikely DVT or PE as patient is anticoagulated on Eliquis, however will obtain venous duplex of the lower extremity to rule this out. Unlikely threat to limb, arterial occlusion, osteo, fx or dislocatioin Plan: labs, LE venous duplex Differential Diagnosis Differential Diagnoses: The differential diagnosis associated with the presentation includes Clinical concern for cellulitis, unlikely DVT or PE as patient is anticoagulated on Eliquis, however will obtain venous duplex of the lower extremity to rule this out. Unlikely threat to limb, arterial occlusion, osteo, fx or dislocatioin Admission/Observation Consideration of admission/observation: Escalation of care including admission/observation considered likely Consult Healthcare Provider Management of the patient was discussed with: Hospitalist Lab Data [facility] Lab Attestation statement: I reviewed the patient's lab results. 04/22/23 09:47 04/22/23 09:48 Labs: Lab Results 04/22/23 04/22/23 Range/Units 09:47 09:48 WBC 10.5 (4.8-10.8) X10*3/uL RBC 4.27 L (4.60-5.80) X10*6/uL Hgb 13.1 L (14.0-18.0) g/dl Hct 38.8 L (42.0-52.0) % MCV 90.9 (80.0-98.0) fL MCH 30.7 (27.0-33.0) pg MCHC 33.8 (31.0-36.0) g/dl RDW 12.6 (11.0-16.0) % Plt Count 262 D (160-400) X10*3/uL MPV 10.1 (9.4-12.4) fL Immature Gran % (Auto) 1.2 H (0.0-0.4) % Neut % (Auto) 67.3 (45-73) % Lymph % (Auto) 18.2 L (20-40) % Braxton % (Auto) 10.6 (2-11) % Eos % (Auto) 2.1 (0-4) % Baso % (Auto) 0.6 (0-2) % Lymph # (Auto) 1.9 (1.2-4.9) X10*3/uL Braxton # (Auto) 1.1 (0.1-1.2) X10*3/uL Eos # (Auto) 0.2 (0.0-0.4) X10*3/uL Baso # (Auto) 0.1 (0.0-0.2) X10*3/uL Abs Immat Gran (auto) 0.13 H (0.00-0.03) X10*3/uL Absolute Neuts (auto) 7.1 (2.0-8.3) x10*3/uL Absolute Nucleated RBC 0.120 H (0.0-0.012) X10*3/uL Nucleated RBC % (auto) 1.1 H (0.0-0.2) /100WBC Sodium 137 (135-145) mmol/L Potassium 4.8 (3.3-5.1) mmol/L Chloride 104 (96-108) mmol/L Carbon Dioxide 20 L (22-29) mmol/L Anion Gap 18 (12-20) BUN 15 (9-16) mg/dL Creatinine 1.15 (0.5-1.4) mg/dL Estim Creat Clear Calc 74.7 Estimated GFR > 60 Random Glucose 163 H (60-115) mg/dL Calcium 9.5 (8.4-10.2) mg/dL Magnesium 1.9 (1.6-2.6) mg/dL Total Bilirubin 0.8 (0.0-1.0) mg/dL AST 35 (5-37) U/L ALT 43 H (0-40) U/L Alkaline Phosphatase 103 (39-117) U/L Total Protein 7.0 (6.5-8.0) g/dL Albumin 3.2 L (3.5-5.0) g/dL Independent Interpretation I performed an independent interpretation of an: Ultrasound (negative DVT) Radiology Impression Discussion of test interpretation with radiology: I have reviewed the radiologist's reading. Core Measures AMI core measures followed: Yes Measure exclusions: not indicated Critical Care Time Critical Care Time Critical Care Time: No Discharge Plan Discharge Clinical Impression: Cellulitis Patient Disposition: Admitted As Inpatient Additional Instructions: Take your medications as prescribed. If you were prescribed antibiotics today, it is important that you take your medication to their entirety, do not skip any doses, do not finish them early. Follow-up with your primary care provider this week. Return to the emergency department with new or worsening symptoms. Such as fevers, chills, chest pain, shortness of breath, nausea, vomiting, dizziness, headache, vision changes, lethargy In case of emergency call 911
[2023-04-22 09:55] LABS: MANUAL DIFF FLAG NO
[2023-04-22 10:03] LABS: Basophils Absolute Auto 0.1 X10*3/uL (0.0-0.2); Basophils Percent Auto 0.6 % (0-2); Eosinophils Absolute Auto 0.2 X10*3/uL (0.0-0.4); Eosinophils Percent Auto 2.1 % (0-4); Hematocrit 38.8 % (42.0-52.0); Hemoglobin 13.1 g/dl (14.0-18.0); Imm Gran Abs Auto 0.13 X10*3/uL (0.00-0.03); Imm Gran Pct Auto 1.2 % (0.0-0.4); Lymphocytes Absolute Auto 1.9 X10*3/uL (1.2-4.9); Lymphocytes Percent Auto 18.2 % (20-40); Mean Corpuscular HGB Conc 33.8 g/dl (31.0-36.0); Mean Corpuscular Hemoglobin 30.7 pg (27.0-33.0); Mean Corpuscular Volume 90.9 fL (80.0-98.0); Mean Platelet Volume 10.1 fL (9.4-12.4); Monocytes Absolute Auto 1.1 X10*3/uL (0.1-1.2); Monocytes Percent Auto 10.6 % (2-11); NRBC Pct Auto 1.1 /100WBC (0.0-0.2); Neutrophils Absolute Auto 7.1 x10*3/uL (2.0-8.3); Neutrophils Percent Auto 67.3 % (45-73); Platelet Count 262 X10*3/uL (160-400); Red Blood Count 4.27 X10*6/uL (4.60-5.80); Red Cell Distribution Width 12.6 % (11.0-16.0); White Blood Count 10.5 X10*3/uL (4.8-10.8)
[2023-04-22 10:18] LABS: Alanine Aminotransferase 43 U/L (0-40); Albumin Level 3.2 g/dL (3.5-5.0); Alkaline Phosphatase 103 U/L (39-117); Anion Gap 18 (12-20); Aspartate Amino Transferase 35 U/L (5-37); Bilirubin Total 0.8 mg/dL (0.0-1.0); Blood Urea Nitrogen 15 mg/dL (9-16); Calcium 9.5 mg/dL (8.4-10.2); Carbon Dioxide 20 mmol/L (22-29); Chloride 104 mmol/L (96-108); Creatinine Clr Calc Pharmacy 74.7; Estimated Glomerular Filt Rate > 60; Glucose Random 163 mg/dL (60-115); Magnesium 1.9 mg/dL (1.6-2.6); Potassium 4.8 mmol/L (3.3-5.1); Sodium 137 mmol/L (135-145)
--- NOTE | 2023-04-22 10:56 | PC.NURSE ---
pt a&o x4, pleasant, calm and cooperative. pt reports RLE swelling denies pain on palpation. +1 pitting edema. pedal pulse palpated. LLE cellulitis. pedal pulse palpated. labs drawn, pt resting on stretcher in no apparent distress. vss. wctm
[2023-04-22 11:01] VITALS: BP 116/54; PULSE 77; RESP 18; O2SAT 97
--- NOTE | 2023-04-22 11:13 | PM.IMHP ---
History of Present Illness Date of Service: 04/22/23 Attending physician on admission: Kevin Cooley Chief Complaint: Cellulitis Pt is a 77-year-old male with a PMH significant for?HTN, insulin-dependent diabetes type 2 with neuropathy, seizure disorder, BPH, depression, and anxiety who presents to the ED from rehab with?recurrent right lower leg swelling and redness. Pt's symptoms initially began 4 weeks ago patient was walking [place] his [place] his hallway when his right knee ?gave out?. Patient caught himself on the window sill and was able to lower himself to the ground. Was evaluated at [facility] and was noted to have swelling and erythema of right lower leg and treated for cellulitis. Patient was admitted to the hospital for 1 week and then sent to rehab. After 24 hours at rehab he developed a fever of 102 and then sent here to [facility] where he was admitted and treated for sepsis secondary to right lower leg cellulitis. Patient also had 1/2 blood cultures return positive for GNR. Blood culture had be sent out to outside lab for identification. Erythema resolved by time of discharge (04/15/2021) and pt sent back to rehab on doxycycline 100 mg b.i.d. x7 days. He subsequently completed his course of antibiotics but last night patient noted his right leg to again be swollen and erythematous. Also experienced chills and diaphoresis. Was then sent back to ED for further evaluation. Of note, blood cultures have subsequently come back positive for Acinetobacter susceptible to Unasyn. Pt otherwise has no acute medical complaints. Denies any right leg or ankle pain. Currently no fever, chills, diaphoresis. No chest pain/pressure, palpitations. Denies SOB. No abdominal pain. In the ED patient was afebrile. Labs were grossly unremarkable. Venous Doppler ultrasound of right lower extremity found no evidence of DVT but showed mild subcutaneous edema in the right calf. Pt was treated with IVF in ED. Pt will be admitted to the hospital for treatment with IV antibiotics of acute right lower leg cellulitis that has failed outpatient therapy. Review of Systems Review of Systems: Right lower ankle and leg swelling and erythema Chills, diaphoresis Denies leg pain No SOB, chest pain/pressure, palpitations. Yes all other systems are reviewed and are negative [facility] Medical History Gram-negative bacteremia Social History Household Members: Family and Children Housing: House Do you presently have visiting nurse or other home services: No Alcohol intake: unknown Patient Tobacco Use Status: Former Tobacco user Smoked in Last 30 Days: No Second Hand Smoke Exposure: No Use of substances other than those prescribed or required for medical reasons: No Currently Displaying Signs/Symptoms of Drug Intoxication Withdrawal: No Have you been hit, kicked, punched, or otherwise hurt by someone within the past year? If so, by whom?: No Do you feel safe in your current relationship?: No Current Relationship Is there a partner from a previous relationship who is making you feel unsafe now?: No Are you made to feel afraid or neglected: No Advance Directives: Yes Advance Directives on File: Yes Advance Directives Date on File: 04/18/23 Do you have thoughts of harming others: None Do you have a plan to hurt others: No Plan Recently lost weight without trying: No How much weight loss: Not applicable Eating poorly because of decreased appetite: No Nutrition screen score: 0 Nutrition Risks: No Nutritional Risk Poor oral hygiene: No service: Yes Meds Allergies Allergy/AdvReac Type Severity Reaction Status Date / Time codeine Allergy Unknown Verified 04/10/23 15:35 Active Medications: Current Medications Ceftriaxone Sodium 1 gm/ (Sodium Chloride) 50 mls @ 100 mls/hr IV ONCE ONE Stop: 04/22/23 11:35 Sodium Chloride (Ns) 1,000 mls @ 999 mls/hr IV .Q1H1M TARUN Stop: 04/22/23 12:15 Pharmacy Consult (Consult Rx Perform Med Rec) 1 each MISCELLANE ONCE PRN PRN Reason: Consult order Home Medications Medication Instructions Recorded Confirmed Last Taken Type apixaban 5 mg tablet 5 mg PO BID 04/10/23 04/22/23 04/22/23 09:00 History atorvastatin 80 mg tablet 80 mg PO BEDTIME 04/10/23 04/22/23 04/21/23 History carboxymethylcellulose sodium 0.5 1 drp ophthalmic (eye) BID 04/10/23 04/22/23 04/22/23 09:00 History % eye drops clonidine HCl 0.2 mg tablet 0.2 mg PO TID 04/10/23 04/22/23 04/22/23 09:00 History escitalopram oxalate 10 mg tablet 15 mg PO DAILY 04/10/23 04/22/23 04/22/23 09:00 History finasteride 5 mg tablet 5 mg PO DAILY 04/10/23 04/22/23 04/22/23 09:00 History furosemide 40 mg tablet 40 mg PO DAILY 04/10/23 04/22/23 04/22/23 09:00 History gabapentin 600 mg tablet 600 mg PO BID 04/10/23 04/22/23 04/22/23 09:00 History insulin glargine 100 unit/mL (3 15 unit subcut DAILY 04/10/23 04/22/23 04/22/23 09:00 History mL) subcutaneous pen (Lantus Solostar U-100 Insulin) insulin lispro 100 unit/mL 1 sliding scale dose subcut TIDAC 04/10/23 04/22/23 04/22/23 09:00 History subcutaneous pen (Humalog KwikPen (U-100) Insulin) levetiracetam 750 mg tablet 750 mg PO BID 04/10/23 04/22/23 04/22/23 09:00 History multivitamin 1 tab PO DAILY 04/10/23 04/22/23 04/22/23 09:00 History nystatin 100,000 unit/gram topical 1 appl topical BID 04/10/23 04/22/23 04/22/23 09:00 History powder tamsulosin 0.4 mg capsule 0.4 mg PO BEDTIME 04/10/23 04/22/23 04/22/23 09:00 History thiamine HCl (vitamin B1) 100 mg 100 mg PO DAILY 04/10/23 04/22/23 04/22/23 09:00 History tablet trazodone 50 mg tablet 25 mg PO BEDTIME 04/10/23 04/22/23 04/22/23 09:00 History Insta-Glucose Gel 77.4% 1 ea PO DAILY PRN Hypoglycemia 04/22/23 04/22/23 Unknown History acetaminophen 325 mg tablet 650 mg PO Q6H PRN Fever Or Pain 04/22/23 04/22/23 Unknown History (Tylenol) bisacodyl 10 mg rectal suppository 10 mg IN DAILY PRN Constipation 04/22/23 04/22/23 Unknown History glucagon HCl 1 mg solution for 1 mg subcut Q20M PRN Hypoglycemia 04/22/23 04/22/23 Unknown History injection (Glucagon (HCl) Emergency Kit) magnesium hydroxide 400 mg/5 mL 30 ml PO BEDTIME PRN Constipation 04/22/23 04/22/23 Unknown History oral suspension (Milk of Magnesia) polyethylene glycol 3350 17 gram 17 g PO DAILY 04/22/23 04/22/23 04/22/23 09:00 History oral powder packet (Miralax) sodium phosphates 19 gram-7 118 ml IN DAILY PRN Constipation 04/22/23 04/22/23 Unknown History gram/118 mL enema (Fleet Enema) Physical Exam Vital Signs and Narrative: Vital Signs: Last Vital Signs Temp 97.9 F 04/22/23 09:06 Pulse 77 04/22/23 11:01 Resp 18 04/22/23 11:01 BP 116/54 L 04/22/23 11:01 Pulse Ox 97 04/22/23 11:01 O2 Del Method Room Air 04/22/23 11:01 BMI result Body Mass Index 42.9 Constitutional: Alert, in no acute distress. Mental Status: Oriented to person, place and time. Eyes: Pupils are equal, round, and reactive to light. Ear, Nose, and Throat: Oropharynx clear, mucous membranes moist. Ears and nose without deformities. Trachea midline. Respiratory: Clear to auscultation bilaterally. No wheezing, rales, or rhonchi. Cardiovascular: S1, S2 regular. No murmurs, rubs, or gallops. Gastrointestinal: Abdomen soft, non-tender, non-distended, obese. Normal bowel sounds. Neurologic: Cranial nerves II-XII are grossly intact bilaterally. No focal neurological deficits. Moves all extremities spontaneously. Skin: No rashes or lesions noted. Musculoskeletal: No cyanosis or clubbing. Extremities: Erythema and warmth of medial right lower ankle and leg, diffuse swelling. Diffuse petechial rash of lower legs bilaterally. As pictured below. Psychiatric: Normal mood and affect. Results Labs 04/22/23 09:47 04/22/23 09:48 Labs: Laboratory Results - last 24 hr 04/22/23 04/22/23 09:47 09:48 MCV 90.9 MCH 30.7 MCHC 33.8 RDW 12.6 Plt Count 262 D MPV 10.1 Immature Gran % (Auto) 1.2 H Neut % (Auto) 67.3 Lymph % (Auto) 18.2 L [place] % (Auto) 10.6 Eos % (Auto) 2.1 Baso % (Auto) 0.6 Lymph # (Auto) 1.9 [place] # (Auto) 1.1 Eos # (Auto) 0.2 Baso # (Auto) 0.1 Abs Immat Gran (auto) 0.13 H Absolute Neuts (auto) 7.1 Absolute Nucleated RBC 0.120 H Nucleated RBC % (auto) 1.1 H Anion Gap 18 Estim Creat Clear Calc 74.7 Estimated GFR > 60 Random Glucose 163 H Calcium 9.5 Magnesium 1.9 Total Bilirubin 0.8 AST 35 ALT 43 H Alkaline Phosphatase 103 Total Protein 7.0 Albumin 3.2 L Imaging Radiologist's Impressions: Impressions Venous Duplex 04/22/23 10:17 IMPRESSION: 1. No evidence for deep venous thrombosis in the visualized veins of the right lower extremity. 2. Complex right popliteal cyst. 3. Mild subcutaneous edema in the right calf. Assessment and Plan (1) Cellulitis of leg, right: Status: Resolved Plan Pt is a 77-year-old male with a PMH significant for?HTN, insulin-dependent diabetes type 2 with neuropathy, seizure disorder, BPH, depression, and anxiety who presents to the ED from rehab with?recurrent right lower leg swelling and redness. Pt will be admitted to the hospital for treatment with IV antibiotics of acute right lower leg cellulitis that has failed outpatient therapy. Right lower leg cellulitis Patient has been treated for cellulitis at both [facility] and here during the past month Was last sent home on doxycycline 100 mg b.i.d. x7 days, cellulitis returned Erythema, warmth, swelling of right lower leg and ankle Pt does not meet sepsis criteria Will treat with Unasyn IV 3g q6h Infectious Disease consult Hx of bacteremia 1/2 BCx positive at last admission Likely secondary to cellulitis. UA negative for acute infection. belly CT from [facility] 04/06 with no infectious etiology. repeat abdominal CT with po contrast without source of infection. Final culture results unable to be determined by lab and sent out to reference lab Final results positive for Acinetobacter, susceptible to Unasyn Treat as above Follow current blood cultures DVT prophylaxis PT has been on Eliquis since at least being at rehab, indication unclear to either facility or patient Will continue Eliquis HTN Continue home meds Insulin-dependent diabetes type 2 Hold home meds Sliding-scale insulin, Lantus Diabetic diet Diabetic neuropathy Continue gabapentin Seizure disorder Continue levetiracetam BPH Continue Flomax, Proscar Mood disorder Continue home meds For chronic constipation Continue bowel regimen Chronic lower leg swelling Continue furosemide DNR/DNI Attending:?Dr. Cooley DVT Prophylaxis: On Eliquis Pt will require a hospitalization of at least two nights for treatment with IV antibiotics of acute right lower leg cellulitis as failed outpatient therapy. Time Spent With Patient Time: Total time managing care of this patient today ____ minutes. Quality Stroke Does the patient have a stroke diagnosis?: No VTE Prior VTE?: No VTE Risk Level:: Medical - moderate - high VTE Device Contraindication: Treatment Not Indicated VTE Drug Contraindication: N/A - Med Ordered
--- OUTSIDE RECORDS SUMMARY | 2023-04-22 12:26 | XMS_ITS | Continuity of Care Document ---
Author Name Unknown Organization [facility] Address [address] [place] [id number]- Care Team Providers Care Registered Medical Assistant Name Role Phone Luiz Major Primary Care Physician [phone] Encounter [facility] R [id number] Date(s): 02/12/21 - 02/19/21 [facility] [address] [place] [id number] Attending Physician: Robert Downing MD Admitting Physician: Robert Downing MD Referring Physician: Luiz Major Allergies, Adverse Reactions, Alerts Substance Reaction Severity Status NKA Active Immunizations Given and Recorded Vaccine Date Status Refusal Reason tetanus/diphtheria/pertussis, acel(Tdap) 03/09/19 Given Medications Ammonium Lactate 12% Topically, 2 times a day, 0 Refills, Maintenance, 03/07/19 12:56:56 EDT Start Date: 03/07/19 Status: Ordered ARIPiprazole 5 mg oral tablet 5 mg, 1, tablet, By Mouth, Daily, # 30 tablet, Refills 0, Maintenance, 03/07/19 12:57:15 EDT Start Date: 03/07/19 Status: Ordered aspirin 81 mg oral delayed release tablet 81 mg, 1, tablet, By Mouth, Daily, # 30 tablet, Refills 0, Maintenance, 03/07/19 12:57:24 EDT Start Date: 03/07/19 Status: Ordered atenolol 100 mg oral tablet 1.5 tablet = 150 mg, By Mouth, Daily, # 90 tablet, 0 Refills, Maintenance, 03/07/19 12:57:38 EDT, Tablet Start Date: 03/07/19 Status: Ordered cloNIDine 0.2 mg oral tablet 0.2 mg, 1, tablet, By Mouth, 2 times a day, Refills 0, Maintenance, 03/07/19 12:57:49 EDT Start Date: 03/07/19 Status: Ordered Compression Stockings See Instructions, # 2 each, Refills 2, Tot. Refills 2, Maintenance, surgical, knee length 20-30 mm Hg Dx: I83.899, 02/12/21 14:43:00 EDT, Supply Start Date: 02/12/21 Status: Ordered diazepam 2 mg oral tablet 2 mg, 1, tablet, By Mouth, 2 times a day, Refills 0, Maintenance, 03/07/19 12:58:02 EDT Start Date: 03/07/19 Status: Ordered dulaglutide 0.75 mg/0.5 mL subcutaneous solution Subcutaneous Infusion, 0 Refills, Maintenance, 03/07/19 12:58:18 EDT Start Date: 03/07/19 Status: Ordered escitalopram 10 mg oral tablet 1 tablet = 10 mg, By Mouth, Daily, # 30 tablet, 0 Refills, Maintenance, 03/07/19 12:58:29 EDT, Tablet Start Date: 03/07/19 Status: Ordered Lasix 40 mg oral tablet 40 mg, 1, tablet, By Mouth, 2 times a day, Refills 0, Maintenance, 03/07/19 12:59:03 EDT Start Date: 03/07/19 Status: Ordered losartan 100 mg oral tablet 1 tablet = 100 mg, By Mouth, Daily, # 30 tablet, 0 Refills, Maintenance, 03/07/19 12:59:35 EDT, Tablet Start Date: 03/07/19 Status: Ordered Multivitamin Daily, 0 Refills, Maintenance, 03/07/19 13:01:48 EDT Start Date: 03/07/19 Status: Ordered prazosin 2 mg oral capsule 1 capsule = 2 mg, By Mouth, 3 times a day, 0 Refills, Maintenance, 03/07/19 13:00:23 EDT Start Date: 03/07/19 Status: Ordered simvastatin 5 mg oral tablet 1 tablet = 5 mg, By Mouth, Daily at bedtime, # 30 tablet, 0 Refills, Maintenance, 03/07/19 13:00:34EDT, Tablet Start Date: 03/07/19 Status: Ordered thiamine 100 mg oral tablet 100 mg, 1, tablet, By Mouth, Daily, Refills 0, Maintenance, 03/07/19 13:00:48 EDT Start Date: 03/07/19 Status: Ordered traZODone 50 mg oral tablet 25 mg, 0.5, tablet, By Mouth, Daily at bedtime, # 15 tablet, Refills 0, Maintenance, 03/07/19 13:01:09 EDT Start Date: 03/07/19 Status: Ordered zolpidem 10 mg oral tablet 1 tablet = 10 mg, By Mouth, Daily at bedtime, 0 Refills, Maintenance, 03/07/19 13:01:31 EDT Start Date: 03/07/19 Status: Ordered Vital Signs Most recent to oldest [Reference Range]: 1 Height 175 cm (02/12/21 1:50 PM) Weight 142.5 kg (02/12/21 1:50 PM) Oxygen Saturation [94-100 %] 98 % (02/12/21 1:50 PM) Pulse Rate [55-90 bpm] 78 bpm (02/12/21 1:50 PM) Body Mass Index [18.5-24.99] 46.53 *>HHI* (02/12/21 1:50 PM) Blood Pressure [90-138/55-84 mm Hg] 160/ 90mm Hg *H* (02/12/21 1:50 PM) Blood pressure sites Arm, left (02/12/21 1:50 PM) Weight Obtained Via Patient/family state d (02/12/21 1:50 PM) Social History Social History Type Response Smoking Status Former smoker, quit more than 30 days ago entered on: 12/22/18 Sex
--- OUTSIDE RECORDS SUMMARY | 2023-04-22 12:26 | XMS_ITS | Continuity of Care Document ---
Author Name Unknown Organization [facility] Address [address], [address] [place] [id number]- Care Team Providers Care Mud Engineer Name Role Phone Luiz Major Primary Care Physician [phone] [place] [facility] 08[place] [facility] [address], [address], [address] [place] [id number] Attending Physician: Cordelia Bravo Admitting Physician: Cordelia Bravo Referring Physician: AdmtrCordelia Allergies, Adverse Reactions, Alerts No Known Allergies Immunizations Given and Recorded Vaccine Date Status Refusal Reason tetanus/diphtheria/pertussis, acel(Tdap) 03/09/19 Given Medications ARIPiprazole 5 mg oral tablet 5 mg, 1, tablet, By Mouth, Daily, plus 1 tablet as needed for mood, Refills 0, Maintenance, 03/07/19 12:57:15 EDT Start Date: 03/07/19 Status: Ordered atorvastatin 80 mg oral tablet 1 tablet = 80 mg, By Mouth, Daily, Maintenance, 05/28/22 13:07:00 EDT, Tablet, Partial fill upon patient request if the prescription is for a schedule II opioid drug. Start Date: 05/28/22 Status: Ordered carboxymethylcellulose 1 drop, Eyes, Both, 2 times a day, 0.5% eye drop, 0 Refills, Maintenance, 05/28/22 13:07:00 EDT, Partial fill upon patient request if the prescription is for a schedule II opioid drug. Start Date: 05/28/22 Status: Ordered cloNIDine 0.2 mg oral tablet 0.2 mg, 1, tablet, By Mouth, 3 times a day, Refills 0, Maintenance, 03/07/19 12:57:49 EDT Start Date: 03/07/19 Status: Ordered diazepam 2 mg oral tablet 2 mg, 1, tablet, By Mouth, 2 times a day, Refills 0, Maintenance, 03/07/19 12:58:02 EDT Start Date: 03/07/19 Status: Ordered escitalopram 10 mg oral tablet 1.5 tablets, By Mouth, Daily, 0 Refills, Maintenance, 03/07/19 12:58:29 EDT, Tablet Start Date: 03/07/19 Status: Ordered gabapentin 600 mg oral tablet 1 tablet = 600 mg, 2 times a day, 0 Refills, Maintenance, 05/28/22 20:25:00 EDT, Partial fill upon patient request if the prescription is for a schedule II opioid drug. Start Date: 05/28/22 Status: Ordered Keppra 750 mg oral tablet 1 tablet = 750 mg, By Mouth, 2 times a day, # 180 tablet, 3 Refills, Maintenance, 07/06/22 8:38:00 EDT, Tablet, [id number], 175, cm, 06/29/22 8:34:00 EDT, Height, 157, kg, 05/28/22 16:41:00 EDT, Dry Weight Start Date: 07/06/22 Stop Date: 07/01/23 Status: Ordered Lantus Solostar Pen 100 units/mL subcutaneous solution = 12 units, Subcutaneous Infusion, Daily, 0 Refills, Maintenance, 05/28/22 13:10:00 EDT, Partial fill upon patient request if the prescription is for a schedule II opioid drug. Start Date: 05/28/22 Status: Ordered Lasix 40 mg oral tablet 40 mg, 1, tablet, By Mouth, Daily, Refills 0, Maintenance, 03/07/19 12:59:03 EDT Start Date: 03/07/19 Status: Ordered Multivitamin 1 tablet, By Mouth, Daily, 0 Refills, Maintenance, 03/07/19 13:01:48 EDT Start Date: 03/07/19 Status: Ordered prazosin 2 mg oral capsule 1 capsule = 2 mg, By Mouth, Daily at bedtime, 0 Refills, Maintenance, 03/07/19 13:00:23 EDT Start Date: 03/07/19 Status: Ordered semaglutide 1.7 mg/0.75 mL (1.7 mg dose) subcutaneous solution = 1.7 mg, Subcutaneous Infusion, Every week, Maintenance, 05/28/22 13:10:00 EDT, Partial fill upon patient request if the prescription is for a schedule II opioid drug. Start Date: 05/28/22 Status: Ordered spironolactone 25 mg oral tablet 25 mg, 1, tablet, By Mouth, Daily, Maintenance, 05/28/22 13:11:00 EDT, Partial fill upon patient request if the prescription is for a schedule II opioid drug. Start Date: 05/28/22 Status: Ordered thiamine 100 mg oral tablet 100 mg, 1, tablet, By Mouth, 2 times a day, Refills 0, Maintenance, 03/07/19 13:00:48 EDT Start Date: 03/07/19 Status: Ordered traZODone 100 mg oral tablet 100 mg, 1, tablet, By Mouth, 2 times a day, Maintenance, 05/28/22 13:07:00 EDT, Partial fill upon patient request if the prescription is for a schedule II opioid drug. Start Date: 05/28/22 Status: Ordered zolpidem 10 mg oral tablet 1 tablet = 10 mg, By Mouth, Daily at bedtime, 0 Refills, Maintenance, 03/07/19 13:01:31 EDT Start Date: 03/07/19 Status: Ordered Problem List Condition Confirmation Course Effective Dates Status Health St atus Informant Shoulder arthritis Confirmed Active Diabetes Confirmed Active Diabetic neuropathy Confirmed Active Obesity Confirmed Active Obstructive sleep apnea Confirmed Active Peripheral vascular disease Confirmed Active Severe obesity Confirmed Active Social History Social History Type Response Smoking Status Former smoker, quit more than 30 days ago entered on: 12/22/18 Sex Patient Care team information Care Team Personnel Name: Kalpana Lujan RN Position: S RN Member Role: Primary Care Nurse Name: Yazmin Reid RN Position: S RN Member Role: Primary Care Nurse Name: Luiz Major Position: Reference Physician Member Role: PCP Address: Address: [address] [place] [id number]- Care Team Related Persons Name: DEMOND LUIS Address: home [address] [place] [id number] Name: MARTI CROUCH Address: [address] [address]
--- OUTSIDE RECORDS SUMMARY | 2023-04-22 12:26 | XMS_ITS | Continuity of Care Document ---
Author Name Unknown Organization [facility] Address [address] [place] [address]- Care Team Providers Care Contract Technician Name Role Phone Luiz Major Primary Care Physician [phone] [facility] Date(s): 04/05/23 - 04/08/[address] [address]- Discharge Disposition: A-Transfer SNF Attending Physician: Asa Ruiz MD Admitting Physician: Luh VEGA, Christine Referring Physician: Moose VEGA, Jean Sandoval Allergies, Adverse Reactions, Alerts No Known Allergies Immunizations Given and Recorded Vaccine Date Status Refusal Reason tetanus/diphtheria/pertussis, acel(Tdap) 03/09/19 Given Medications Ambien 10 mg oral tablet 1 tablet = 10 mg, By Mouth, Daily at bedtime, PRN as needed for insomnia, 0 Refills, Maintenance, 04/06/23 23:23:00 EDT, Tablet, Partial fill upon patient request if the prescription is for a schedule II opioid drug. Start Date: 04/06/23 Status: Ordered ARIPiprazole 5 mg oral tablet [...] 2 times a day, Refills 0, Maintenance, 04/07/23 0:50:00 EDT, Partial fill upon patient request if the prescription is for a schedule II opioid drug. Start Date: 04/07/23 Status: Ordered escitalopram 10 mg oral tablet 1.5 tablets, By Mouth, Daily, 0 Refills, Maintenance, 03/07/19 12:58:29 EDT, Tablet Start Date: 03/07/19 Status: Ordered finasteride 5 mg oral tablet = 5 mg, By Mouth, Daily, 0 Refills, Maintenance, 04/08/23 11:22:00 EDT, Tablet, Partial fill upon patient request if the prescription is for a schedule II opioid drug. Start Date: 04/08/23 Status: Ordered Flomax 0.4 mg oral capsule 0.4 mg, By Mouth, Daily at bedtime, Refills 0, Maintenance, 04/08/23 11:22:00 EDT, Partial fill upon patient request if the prescription is for a schedule II opioid drug. Start Date: 04/08/23 Status: Ordered furosemide 40 mg oral tablet 40 mg, 1, tablet, By Mouth, Daily, # 30 tablet, Refills 0, Maintenance, 04/06/23 20:41:00 EDT, Partial fill upon patient request if the prescription is for a schedule II opioid drug. Start Date: 04/06/23 Status: Ordered gabapentin 300 mg oral capsule 600 mg, Capsule, By Mouth, 04/08/23 9:22:00 EDT Start Date: 04/08/23 Stop Date: 04/08/23 Status: Completed gabapentin 600 mg oral tablet 1 tablet = 600 mg, 2 times a day, 0 Refills, Maintenance, 05/28/22 20:25:00 EDT, Partial fill upon patient request if the prescription is for a schedule II opioid drug. Start Date: 05/28/22 Status: Ordered Keppra 750 mg oral tablet 1 tablet = 750 mg, By Mouth, 2 times a day, # 180 tablet, 3 Refills, Maintenance, 09/24/22 14:43:00EST, Tablet, [facility], 175, cm, 06/29/22 8:34:00 EDT, Height, 157, kg, 05/28/22 16:41:00 EDT, Dry Weight Start Date: 09/24/22 Stop Date: 09/19/23 Status: Ordered Lantus Solostar Pen 100 units/mL subcutaneous solution See Instructions, Subcutaneous Injection, Use as directed for Diabetes mellitus type 1. (Max Dose =15 units/day), # 3 each, 5 Refills, Maintenance, 04/07/23 0:52:00 EDT, Partial fill upon patient request if the prescription is for a schedule II opioi... Start Date: 04/07/23 Stop Date: 05/07/23 Status: Ordered MiraLax oral powder for reconstitution = 17 Gm, By Mouth, Daily, dissolve in water before taking, # 527 Gm, 0 Refills, Acute 04/21/23 11:23:00 EDT, 04/08/23 11:23:00 EDT, REC Powder, [facility], Partial fill upon patient request if the prescription is for a schedule II opioi... Start Date: 04/08/23 Stop Date: 04/21/23 Status: Ordered Multivitamin 1 tablet, By Mouth, Daily, 0 Refills, Maintenance, 03/07/19 13:01:48 EDT Start Date: 03/07/19 Status: Ordered semaglutide [...] Status: Ordered thiamine 100 mg oral tablet See Instructions, 1 tablet By Mouth Daily, Refills 0, Maintenance, 04/07/23 0:54:00 EDT, Instructions Replace Required Details, Partial fill upon patient request if the prescription is for a scheduleII opioid drug. Start Date: 04/07/23 Status: Ordered traZODone 100 mg oral tablet 50 mg, 0.5, tablet, By Mouth, Daily, # 90 tablet, Refills 0, Maintenance, 04/06/23 23:20:00 EDT, Partial fill upon patient request if the prescription is for a schedule II opioid drug. Start Date: 04/06/23 Status: Ordered Problem List Condition Confirmation Course Effective Dates Status Health St atus Informant Shoulder arthritis Confirmed Active Diabetes Confirmed Active Diabetic neuropathy Confirmed Active Obesity Confirmed Active Obstructive sleep apnea Confirmed Active Peripheral vascular disease Confirmed Active Severe obesity Confirmed Active Results Radiology Reports * Exam Date Time Procedure Performing Provider Status 04/06/23 4:[address] Head/Brain W/O Contrast Jeffrey Lema; Auth (Verified) Notes: (CT Head/Brain W/O Contrast) Reason For Exam: AMS;Other: RESULT: CT Head/Brain W/O Contrast CT Head/Brain W/O Contrast INDICATION: Altered mental status after unwitnessed fall. TECHNIQUE: Noncontrast head CT using axial technique and reconstructed in axial and coronal planes.Iterative reconstruction techniques are used to optimize dose and image quality. CTDIvol Head: 45.27 mGy, DLP Head: 793 mGy*cm. COMPARISON: Yesterday FINDINGS: Personal Financial Representative view findings, lines and tubes: None. BRAIN AND EXTRA-AXIAL SPACES: No parenchymal hemorrhage, midline shift, or mass effect. Trotter-white matter differentiation is wellpreserved. No acute infarct. Heavily calcified carotid siphon and branches of the red [place] of [place] but no convincing evidence of hyperdense vessel sign. Negative insular ribbon sign. Unchanged atrophy pattern of the ventricles and sulci. No white matter lesions. No subarachnoid hemorrhage. No subdural or epidural collection. CALVARIUM, SKULL BASE, AND SOFT TISSUES: No fractures or suspicious bony lesions. The paranasal sinuses and mastoid air cells are clear. Visualized orbits and globes are intact. The extracranial soft tissues are unremarkable. IMPRESSION: No acute intracranial pathology. WSN: [id number] Ordering Physician: Donis Acosta Dictated By: Jean Milan MD Dictated Date/Time: 04/06/23 4:54 pm Reviewed By: Jean Milan MD Signed By: Jaen Milan MD Signed Date/Time: 04/06/23 4:54 pm Transcribed By: AIDEN Transcribed Date/Time: 04/06/23 4:45 pm * Exam Date Time Procedure Performing Provider Status 04/06/23 4:38 PM Abdomen AP Olea , Vitoao T; Auth (V erified) Notes: (Abdomen AP) Reason For Exam: Distention RESULT: XR Abdomen AP XR Abdomen AP 1 view INDICATION/CLINICAL QUESTION: Hx of Present Illness: Pt presented to ED after unwitnessed fall at home. Bilateral knee pain, states the pain and weakness in thighs and knees caused the fall. Other complaints include hernia in abdomen and r shoulder [facility] Reason: Distention; Clinical Question(s): Obstruction COMPARISON: CT abdomen pelvis performed same day FINDINGS: Gaseous distention of the stomach. Severe stool retention but otherwise unremarkable bowel gas pattern. No evidence of obstruction. No evidence of pneumoperitoneum. No organomegaly, masses or calcifications. No acute bone findings. Moderate degenerative changes throughout the visualized spine. IMPRESSION: 1. Severe stool retention but otherwise unremarkable bowel gas pattern. 2. Gaseous distention of the stomach. I have personally reviewed the images and I agree with this report. WSN: [id number] Ordering Physician: Donis Acosta Dictated By: Annamaria Nye MD Dictated Date/Time: 04/06/23 4:52 pm Reviewed By: Grace Live MD Signed By: Grace Live MD Signed Date/Time: 04/06/23 4:57 pm Transcribed By: AIDEN Transcribed Date/Time: 04/06/23 4:47 pm * Exam Date Time Procedure Performing Provider Status 04/05/23 10:41 PM Shoulder Min 2 Views Right Billie Fam L; Auth (Verified) Notes: (Shoulder Min 2 Views Right) Reason For Exam: Pain RESULT: Shoulder Min 2 Views Right Shoulder Min 2 Views Right, 3 views Hx of Present Illness: Pt presented to ED after unwitnessed fall at home. Bilateral knee pain, states the pain and weakness in thighs and knees caused the fall. Other complaints include hernia in abdomen and r shoulder pain that [facility] Reason: Pain; Clinical Question(s): Other: COMPARISON: None. FINDINGS: No fracture or dislocation. Severe osteoarthritis of the right glenohumeral joint. Moderate hypertrophic osteoarthropathy of the right AC joint. No calcification of the rotator cuff. IMPRESSION: Severe osteoarthritis of the right glenohumeral joint. WSN: [id number] Ordering Physician: Josue Paulino Dictated By: João Suarez MD Dictated Date/Time: 04/05/23 10:53 p Reviewed By: João Suarez MD Signed By: João Suarez MD Signed Date/Time: 04/05/23 10:53 pm Transcribed By: AIDEN Transcribed Date/Time: 04/05/23 10:52 pm * Exam Date Time Procedure Performing Provider Status 04/05/23 3:[address] Cervical Spine W/O Contrast Betina Castellon; Auth (Verified) Notes: (CT Cervical Spine W/O Contrast) Reason For Exam: Neck trauma, dangerous injury mechanism;Other: RESULT: CT Cervical Spine W/O Contrast CT Head/Brain W/O Contrast, CT Cervical Spine W/O Contrast INDICATION: Hx of Present Illness: Pt presented to ED after unwitnessed fall at home. Bilateral knee pain, states the pain and weakness in thighs and knees caused the fall. Other complaints include hernia in abdomen and r shoulder pain that [facility] Reason: Trauma; Clinical Question(s): Other: TECHNIQUE: Noncontrast head CT using axial technique was reconstructed in axial and coronal planes.Noncontrast spiral CT through the cervical spine was formatted in 3 planes. Automatic tube modulation was used for the cervical spine and iterative dose reconstruction was used for both the head and cervical spine to optimize scan parameters and image quality. CTDIvol Body: 18.01 mGy, DLP Body: 409 mGy*cm. CTDIvol Head: 46.99 mGy, DLP Head: 793 mGy*cm. COMPARISON: May 28, 2022. FINDINGS: Personal Financial Representative View Findings, Lines and Tubes: None. BRAIN AND EXTRA-AXIAL SPACES: No parenchymal hemorrhage, midline shift, or mass effect. Trotter-white matter differentiation is wellpreserved. No acute infarct. Negative insular ribbon sign. Atherosclerotic vascular calcification of the carotid arteries but negative hyperdense vessel sign. Mild prominence of the ventricles and sulci consistent with parenchymal volume loss. Mild low-density white matter changes. No subarachnoid hemorrhage. No subdural or epidural collection. CALVARIUM, SKULL BASE, AND SOFT TISSUES: No fractures or suspicious bony lesions. The paranasal sinuses and mastoid air cells are clear. Chronic appearing thickening of the partially imaged left maxillary sinus wall. Visualized orbits and globes are intact. The extracranial soft tissues are unremarkable. CERVICAL SPINE: No fracture. No acute osseous abnormalities. Straightening of the normal cervical lordosis, which may be positional or due to muscle spasm. Trace anterolisthesis of C3 on C4. Intervertebral disc spaces and vertebral body heights are preserved. OTHER BONES: No acute abnormality. CERVICAL SOFT TISSUES AND LUNG APICES: Normal soft tissues. Visualized lung apices are clear. IMPRESSION: No acute abnormality of the head or cervical spine. WSN: [id number] Ordering Physician: Josue Paulino Dictated By: Petey Bethea MD Dictated Date/Time: 04/05/23 3:51 pm Reviewed By: Petey Bethea MD Signed By: Petey Bethea MD Signed Date/Time: 04/05/23 3:51 pm Transcribed By: AIDEN Transcribed Date/Time: 04/05/23 3:46 pm * Exam Date Time Procedure Performing Provider Status 04/05/23 3:[address] Head/Brain W/O Contrast Ravinder , Rosa vora; Auth (Verified) Notes: (CT Head/Brain W/O Contrast) Reason For Exam: Trauma RESULT: CT Head/Brain W/O Contrast CT Head/Brain W/O Contrast, CT Cervical Spine W/O Contrast INDICATION: Hx of Present Illness: Pt presented to ED after unwitnessed fall at home. Bilateral knee pain, states the pain and weakness in thighs and knees caused the fall. Other complaints include hernia in abdomen and r shoulder pain that [facility] Reason: Trauma; Clinical Question(s): Other: TECHNIQUE: Noncontrast head CT using axial technique was reconstructed in axial and coronal planes.Noncontrast spiral CT through the cervical spine was formatted in 3 planes. Automatic tube modulation was used for the cervical spine and iterative dose reconstruction was used for both the head and cervical spine to optimize scan parameters and image quality. CTDIvol Body: 18.01 mGy, DLP Body: 409 mGy*cm. CTDIvol Head: 46.99 mGy, DLP Head: 793 mGy*cm. COMPARISON: May 28, 2022. FINDINGS: Personal Financial Representative View Findings, Lines and Tubes: None. BRAIN AND EXTRA-AXIAL SPACES: No parenchymal hemorrhage, midline shift, or mass effect. Trotter-white matter differentiation is wellpreserved. No acute infarct. Negative insular ribbon sign. Atherosclerotic vascular calcification of the carotid arteries but negative hyperdense vessel sign. Mild prominence of the ventricles and sulci consistent with parenchymal volume loss. Mild low-density white matter changes. No subarachnoid hemorrhage. No subdural or epidural collection. CALVARIUM, SKULL BASE, AND SOFT TISSUES: No fractures or suspicious bony lesions. The paranasal sinuses and mastoid air cells are clear. Chronic appearing thickening of the partially imaged left maxillary sinus wall. Visualized orbits and globes are intact. The extracranial soft tissues are unremarkable. CERVICAL SPINE: No fracture. No acute osseous abnormalities. Straightening of the normal cervical lordosis, which may be positional or due to muscle spasm. Trace anterolisthesis of C3 on C4. Intervertebral disc spaces and vertebral body heights are preserved. OTHER BONES: No acute abnormality. CERVICAL SOFT TISSUES AND LUNG APICES: Normal soft tissues. Visualized lung apices are clear. IMPRESSION: No acute abnormality of the head or cervical spine. WSN: [id number] Ordering Physician: Josue Paulino Dictated By: Petey Bethea MD Dictated Date/Time: 04/05/23 3:51 pm Reviewed By: Petey Bethea MD Signed By: Petey Bethea MD Signed Date/Time: 04/05/23 3:51 pm Transcribed By: AIDEN Transcribed Date/Time: 04/05/23 3:46 pm * Exam Date Time Procedure Performing Provider Status 04/05/23 3:[address] Abdomen and Pelvi s W/O Contrast Betina Castellon; Isabel (Verified) Notes: (CT Abdomen and Pelvis W/O Contrast) Reason For Exam: Pain RESULT: CT Abdomen and Pelvis W/O Contrast CT Chest W/O Contrast, CT Abdomen and Pelvis W/O Contrast INDICATION: Pain after fall TECHNIQUE: Helical CT scan of the chest, abdomen, and pelvis without IV contrast, formatted in 3 planes. This study was performed without oral contrast. Weight-based protocol was performed using automatic exposure control. CTDIvol Body: 36.19 mGy, DLP Body: 2487 mGy*cm. COMPARISON: None. FINDINGS: Personal Financial Representative view findings, lines and tubes: None. Trachea and airways: Patent without evidence of tracheal or endobronchial lesion. Lungs and pleura: Mild bibasilar atelectasis with mild scarring in the left lung base.. No effusionor pneumothorax. Mediastinum and rosalva: No mass or hematoma. No mediastinal or hilar lymphadenopathy. No esophageal abnormality. Heart: Heart is normal in size. No pericardial effusion. Aorta: Normal. No evidence of aortic injury. Pulmonary arteries: Normal caliber. Chest wall soft tissues: No acute abnormality. Diaphragm: Intact. Liver: Normal in attenuation and morphology. 2.4 cm water density left lobe cyst on axial image 77.No suspicious lesions. Gallbladder: Normal. Bile ducts: Normal. Spleen: Normal. Pancreas: Normal. Adrenal glands: Normal. Kidneys and ureters: No hydronephrosis, stone, or suspicious lesion. Simple appearing renal cysts, requiring no additional imaging. Bladder: Dilated up above the umbilicus but otherwise normal. No stone or mass. Reproductive organs: Mildly enlarged prostate. Normal seminal vesicles. Stomach, small bowel, and large bowel: Moderate stool retention and sigmoid diverticulosis but no intestinal inflammation, obstruction or mass. Appendix: No evidence of acute appendicitis. Peritoneum and retroperitoneum: No ascites or pneumoperitoneum. No omental or mesenteric lesions. Lymph nodes: No enlarged lymph nodes. Blood vessels: Mild vascular calcifications but no aneurysm. Abdominal and pelvic wall soft tissues: Fat-containing umbilical and left inguinal hernias. Bones: * No bone lesions or fractures. * Severe arthritic changes of both shoulders. * Diffuse contiguous flowing marginal osteophytes of the spine consistent with DISH and contributing to rigid spine. IMPRESSION: 1. No evidence of acute injury. 2. Moderate stool retention. 3. Severely dilated bladder and mildly enlarged prostate. I have personally reviewed the images and I agree with this report. WSN: [id number] Ordering Physician: Josue Paulino Dictated By: Guzman Gomez MD Dictated Date/Time: 04/05/23 4:26 pm Reviewed By: Jean Milan MD Signed By: Jean Milan MD Signed Date/Time: 04/05/23 4:31 pm Transcribed By: AIDEN Transcribed Date/Time: 04/05/23 4:06 pm * Exam Date Time Procedure Performing Provider Status 04/05/23 3:[address] Chest W/O Contrast Betina Castellon; Auth (Verified) Notes: (CT Chest W/O Contrast) Reason For Exam: Chest Pain;Other: RESULT: CT Chest W/O Contrast CT Chest W/O Contrast, CT Abdomen and Pelvis W/O Contrast INDICATION: Pain after fall TECHNIQUE: Helical CT scan of the chest, abdomen, and pelvis without IV contrast, formatted in 3 planes. This study was performed without oral contrast. Weight-based protocol was performed using automatic exposure control. CTDIvol Body: 36.19 mGy, DLP Body: 2487 mGy*cm. COMPARISON: None. FINDINGS: Personal Financial Representative view findings, lines and tubes: None. Trachea and airways: Patent without evidence of tracheal or endobronchial lesion. Lungs and pleura: Mild bibasilar atelectasis with mild scarring in the left lung base.. No effusionor pneumothorax. Mediastinum and rosalva: No mass or hematoma. No mediastinal or hilar lymphadenopathy. No esophageal abnormality. Heart: Heart is normal in size. No pericardial effusion. Aorta: Normal. No evidence of aortic injury. Pulmonary arteries: Normal caliber. Chest wall soft tissues: No acute abnormality. Diaphragm: Intact. Liver: Normal in attenuation and morphology. 2.4 cm water density left lobe cyst on axial image 77.No suspicious lesions. Gallbladder: Normal. Bile ducts: Normal. Spleen: Normal. Pancreas: Normal. Adrenal glands: Normal. Kidneys and ureters: No hydronephrosis, stone, or suspicious lesion. Simple appearing renal cysts, requiring no additional imaging. Bladder: Dilated up above the umbilicus but otherwise normal. No stone or mass. Reproductive organs: Mildly enlarged prostate. Normal seminal vesicles. Stomach, small bowel, and large bowel: Moderate stool retention and sigmoid diverticulosis but no intestinal inflammation, obstruction or mass. Appendix: No evidence of acute appendicitis. Peritoneum and retroperitoneum: No ascites or pneumoperitoneum. No omental or mesenteric lesions. Lymph nodes: No enlarged lymph nodes. Blood vessels: Mild vascular calcifications but no aneurysm. Abdominal and pelvic wall soft tissues: Fat-containing umbilical and left inguinal hernias. Bones: * No bone lesions or fractures. * Severe arthritic changes of both shoulders. * Diffuse contiguous flowing marginal osteophytes of the spine consistent with DISH and contributing to rigid spine. IMPRESSION: 1. No evidence of acute injury. 2. Moderate stool retention. 3. Severely dilated bladder and mildly enlarged prostate. I have personally reviewed the images and I agree with this report. WSN: [id number] Ordering Physician: Josue Paulino Dictated By: Guzman Gomez MD Dictated Date/Time: 04/05/23 4:26 pm Reviewed By: Jean Milan MD Signed By: Jean Milan MD Signed Date/Time: 04/05/23 4:31 pm Transcribed By: AIDEN Transcribed Date/Time: 04/05/23 4:06 pm * Exam Date Time Procedure Performing Provider Status 04/05/23 3:24 PM Knee 3 Views Left Karen Trevino; Auth (Verified) Notes: (Knee 3 Views Left) Reason For Exam: with Pain;Trauma RESULT: Knee 3 Views Left Knee 3 Views Right, Knee 3 Views Left Hx of Present Illness: Pt presented to ED after unwitnessed fall at home. Bilateral knee pain, states the pain and weakness in thighs and knees caused the fall. Other complaints include hernia in abdomen and r shoulder pain [facility] Reason: Trauma; with Pain; Clinical Question(s): Fracture; Special Instructions: [facility] ([place]) COMPARISON: Left knee 12/15/2006. FINDINGS: 3 views of the bilateral knees without evidence of acute fracture or suspicious osseous lesion. There is moderate to severe tricompartmental osteoarthritis most notably in the medial and patellofemoral joint compartments. There is a moderate-sized joint effusion on the right. There is no left-sided effusion. IMPRESSION: Moderate to severe tricompartmental degenerative osteoarthritis but no acute osseous abnormality. Moderate-sized joint effusion in the right knee. WSN: [id number] Ordering Physician: Josue Paulino Dictated By: Raghu Alvarez MD Dictated Date/Time: 04/05/23 3:32 pm Reviewed By: Raghu Alvarez MD Signed By: Raghu Alvarez MD Signed Date/Time: 04/05/23 3:32 pm Transcribed By: AIDEN Transcribed Date/Time: 04/05/23 3:31 pm * Exam Date Time Procedure Performing Provider Status 04/05/23 3:24 PM Knee 3 Views Right Karen Trevino ; Auth (Verified) Notes: (Knee 3 Views Right) Reason For Exam: with Pain;Trauma RESULT: Knee 3 Views Right Knee 3 Views Right, Knee 3 Views Left Hx of Present Illness: Pt presented to ED after unwitnessed fall at home. Bilateral knee pain, states the pain and weakness in thighs and knees caused the fall. Other complaints include hernia in abdomen and r shoulder pain that [facility] Reason: Trauma; with Pain; Clinical Question(s): Fracture; Special Instructions: Pat[place] ([place]) COMPARISON: Left knee 12/15/2006. FINDINGS: 3 views of the bilateral knees without evidence of acute fracture or suspicious osseous lesion. There is moderate to severe tricompartmental osteoarthritis most notably in the medial and patellofemoral joint compartments. There is a moderate-sized joint effusion on the right. There is no left-sided effusion. IMPRESSION: Moderate to severe tricompartmental degenerative osteoarthritis but no acute osseous abnormality. Moderate-sized joint effusion in the right knee. WSN: [id number] Ordering Physician: Josue Paulino Dictated By: Raghu Alvarez MD Dictated Date/Time: 04/05/23 3:32 pm Reviewed By: Raghu Alvarez MD Signed By: Raghu Alvarez MD Signed Date/Time: 04/05/23 3:32 pm Transcribed By: AIDEN Transcribed Date/Time: 04/05/23 3:31 pm Vital Signs Most recent to oldest [Reference Range]: 1 2 3 Height 175 cm (04/08/23 5:41 AM) 175 cm (04/07/23 8:06 PM) 175 cm (04/07/23 2:51 PM) Weight 131.2 kg (04/07/23 12:35 AM) 132 kg (04/06/23 2:00 PM) 132 kg (04/05/23 11:47 PM) Oxygen Saturation [94-100 %] 95 % (04/08/23 4:00 PM) 97 % (04/08/23 12:00 PM) 96 % (04/08/23 8:00 AM) Pulse Rate [55-90 bpm] 85 bpm (04/08/23 4:00 PM) 88 bpm (04/08/23 12:00 PM) 90 bpm (04/08/23 8:00 AM) Body Mass Index [18.5-24.99 kg/m2] 42.84 kg/m2 *>HHI* (04/07/23 12:35 AM) 43.1 kg/m2 *>HHI* (04/06/23 2:00 PM) 43.1 kg/m2 *>HHI* (04/05/23 11:47 PM) Blood Pressure [90-138/55-84 mm Hg] 134/62mm Hg (04/08/23 4:00 PM) 140/56mm Hg *H* (04/08/23 12:00 PM) 142/72mm Hg *H* (04/08/23 8:00 AM) Respiratory Rate [16-30 br/min] 18 br/min (04/08/23 4:00 PM) 18 br/min (04/08/23 12:00 PM) 16 br/min (04/08/23 10:14 AM) Temperature [96.8-100.4 DegF] 98.3 DegF (04/08/23 4:00 PM) 97.4 DegF (04/08/23 12:00 PM) 97.9 DegF (04/08/23 8:00 AM) Liters per Minute 0 L/min (04/07/23 4:00 PM) Mode of Delivery (Oxygen) Room air (04/08/23 4:00 PM) Room air (04/08/23 12:00 PM) Room air (04/08/23 8:00 AM) Blood pressure sites Arm, left (04/08/23 4:00 PM) Arm, right (04/08/23 12:00 PM) Arm, right (04/08/23 8:00 AM) Temperature Route Oral (04/08/23 4:00 PM) Oral (04/08/23 12:00 PM) Oral (04/08/23 8:00 AM) Dry Weight 131.2 kg (04/07/23 12:35 AM) 132 kg (04/06/23 2:00 PM) 132 kg (04/05/23 11:47 PM) Weight Obtained Via Bed scale (04/07/23 12:35 AM) Dry Weight Obtained Via Bed scale (04/07/23 12:35 AM) Social History Social History Type Response Smoking Status Former smoker, quit more than 30 days ago entered on: 12/22/18 Sex History and physical note * Brandan Christensen MD: MODIFY, PERFORM Event Display: History and Physical Hospital Authored Date: Patient: ??SELMA CROUCH ? Age:??77 Years?Sex:??Male?:??1945?? Chief Complaint/Reason for Consultation unwitnessed fall, bilateral pain in knees. Presented with falls History of Present Illness Patient is a 77-year-old female with??diabetes mellitus,??seizure disorder, obstructive sleep apnea, on CPAP,??history of right ICA aneurysms,??dyslipidemia,??depression,??hypertension, who presentedwith falls.?? Patient states that he had 2 falls in the last few days,And feels generally weak.?? In the ER, work-up showed no leukocytosis, creatinine of 1.4, high- sensitivity troponin of 35, and flat, UA showed no pyuria.?? He was seen by PT, who recommended rehab, and he was awaiting rehab placement, however today, he had abdominal pain, nausea, vomiting, was given IV Zofran and IV Reglan, butis still having nausea and hence is being hospitalized.?? He also had some shaking movements of hishands, and there is a question of change in mentation, and a CT head was obtained which showed no acute pathology.?? When I evaluated the patient, he is alert,??and appropriately??conversant, and wasable to give me??a detailed history. ??He states that he had 2 falls in the last few days, feels generalized weakness. ??No??loss of consciousness, no preceding??dizziness or palpitations.?? Today, he has had nausea??and dry heaving. ??Denies abdominal pain, no dysuria, urgency or frequency or hematuria.?? He ambulates with a??quad cane Review of Systems ?Head/neck: no head trauma, swelling in neck ?ENT: no ear pain, ear discharge, sore throat ?Constitutional: No fever, chills or night sweats ?Cardio: No chest pain, no palpitations, no syncope ?Respiratory: No dyspnea, no cough, no wheezing. ?GI: No abdominal pain, no nausea, no vomiting, no diarrhea ?[employer]: No slurring of speech, No muscle weakness, no paresthesias ?Musculoskeletal: No arthralgias or myalgias ?Psychiatric: No suicidal ideation ?: No dysuria, urgency, frequency or hematuria ?Derm: No rash or bruising ?Hematologic: No bruising, no bleeding tendencies.?All other systems reviewed and are negative.? Objective Vital Signs?? Temperature: 98.5 DegF (04/06/23 15:17:00) Temperature Route: Oral (04/06/23 14:00:00) Pulse Rate:??107 bpm??High (04/06/23 21:00:00) Respiratory Rate: 23 br/min (04/06/23 22:27:00) Systolic Blood Pressure:??171 mm Hg??High (04/06/23 21:00:00) Diastolic Blood Pressure:??94 mm Hg??High (04/06/23 21:00:00) Blood pressure sites: Leg, left (04/06/23 18:50:00) Mean Arterial Pressure: 122 mm Hg (04/06/23 18:50:00) Pulse Pressure: 86 mm Hg (04/06/23 18:50:00) Oxygen Saturation: 95 % (04/06/23 21:00:00) Mode of Delivery (Oxygen): Room air (04/06/23 21:00:00) ? Physical Exam General: ??PERRLA, NAD, Moist mucus membranes HEENT: NC,NT, no nasal discharge or bleeding or erythema, no auricle tenderness or erythema, no sinus tenderness. No pharyngeal erythema. Neck: No JVD, no carotid bruit CVS: Regular S1 S2, No M/R/G Resp: CTAB, no crepitations or wheezing Abdo: Soft, NT, ND, NABS, no organomegaly, no masses [employer]: AO x 3, No focal neurological deficits. Extremities: feet are cool, no motor or sensory deficitsin feet, DP palpable b/l, PT was difficult to palpate b/l. Psych: normal affect,??no agitation Musculoskeletal: no joint swelling, tenderness or erythema -no Suprapubic tenderness, no CVA tenderness Skin- no rash, no purpuric lesions ? Assessment/Plan Patient is a 77-year-old female with??diabetes mellitus,??seizure disorder, obstructive sleep apnea, on CPAP,??history of right ICA aneurysms,??dyslipidemia,??depression,??hypertension, who presentedwith falls. ??Subsequently has had nausea and vomiting??in the ER ?? 1.?? Falls ???No new medication changes,??no acute??contributory factor identified ??? May have had dehydration??that contributed, with underlying significant??osteoarthritis??andMorbid obesity ?Check orthostatic vitals PT recommended rehab ??? Trauma work-up including CT head, CT C-spine,CT chest, CT abdomen, bilateral knees and right shoulder showed no acute trauma. ??? Bilateral knees showed severe degenerative osteoarthritis, and moderate joint effusions in bilateral knees. ?? 2.?? Nausea, vomiting???unclear etiology, possibly gastroenteritis,??versus gastroparesis,??and??constipation ??? CT abdomen/pelvisWithout contrast showed no bowel obstruction, moderate stool retention, severely dilated bladder and mildly enlarged prostate, as read by the radiologist. ??? Also appears dehydrated clinically ??? We will give IV crystalloids for 2 L ??? Supportive treatment, with??IV antiemetics ?Had a repeat abdominal x-ray today,??which showed gaseous distention, And severe stool retention ? Treat constipation with aggressive bowel meds and suppository ??? May need enema ???Monitor bladder scans for urinary retention,??significantly dilated??bladder on CT ?? 3. ??Seizure disorder???continue Keppra ?? 4. ??Dyslipidemia???continue statin Hypertension???continue clonidine ?? 5. ??Diabetes mellitus ??? No longer on Lantus as per patient, and is on semaglutide injections weekly Will giveSliding scale, check A1c ?? 6.?? Anxiety,??depression???continue??escitalopram,??will hold??Valium??for now, given concern briefly for altered mental status??earlier today, although he appears at cognitive baseline currently.??Monitor overnight and can resume??Valium??twice daily as needed tomorrow ??? We will also hold gabapentin??and can restart tomorrow??if mental status remains??intact ???Continue Abilify ?? 7.?? 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 See neuro interventional list, and plan is for expectant??management/monitoring. ?? CODE STATUS???full resuscitation DVT??prophylaxis???Lovenox Histories Allergies Allergies ?(Active and Proposed Allergies Only) NKA? (Severity: Unknown severity, Onset: Unknown) ? Past Medical History/Problem List Active Problems??(7) Obstructive sleep apnea Seizure disorder History of right ICA aneurysm Dyslipidemia Depression ?? Diabetes Diabetic neuropathy Obesity Obstructive sleep apnea Peripheral vascular disease Severe obesity Shoulder arthritis ? Past Surgical History Elliptical excision of symptomatic skin lesion: 12/26/18 Punch biopsy of pigmented skin lesion right flank: 12/26/18 States he has had??3 umbilical hernia surgeries Bilateral meniscal??surgeries ?? Social History Occasional alcohol use No cigarette smoking, he states he used to smoke 1 pipe??a day?a long time ago No history of illicit drug use Lives with his??son and another family member ?? Family History No contributory family history, history of varicose veins and multiple family members ? Medications Home Medications???reviewed with patient. ??Of note, external med review??[facility]. ??Patient showed me??a medication list that he had in his wallet and I??went through his medications with him ?? Aripiprazole (ARIPiprazole 5 mg oral tablet)?5?Milligram?1?tablet?By Mouth?Daily?plus 1 tablet as needed for mood Atorvastatin (atorvastatin 80 mg oral tablet)?1?tab(s)?80?Milligram?By Mouth?Daily carboxymethylcellulose?1 drop?Eyes, Both?2 times a day?0.5% eye drop Clonidine (cloNIDine 0.2 mg oral tablet)?0.2?Milligram?1?tablet?By Mouth?3 times a day Escitalopram (escitalopram 10 mg oral tablet)?1.5 tablets?By Mouth?Daily Furosemide (furosemide 40 mg oral tablet)?40?Milligram?1?tablet?By Mouth?Daily Gabapentin (gabapentin 600 mg oral tablet)?1?tab(s)?600?Milligram?2 times a day levETIRAcetam (Keppra 750 mg oral tablet)?1?tab(s)?750?Milligram?By Mouth?2 timesa day?for 90?Days Multivitamin?1?tab(s)?By Mouth?Daily semaglutide (semaglutide 1.7 mg/0.75 mL (1.7 mg dose) subcutaneous solution)?1.7?Milligram?Subcutaneous Infusion?Every week Spironolactone (spironolactone 25 mg oral tablet)?25?Milligram?1?tablet?By Mouth?Daily Trazodone (traZODone 100 mg oral tablet)?100?Milligram?1?tablet?By Mouth?2 times a day Trazodone (traZODone 100 mg oral tablet)?50?Milligram?0.5?tablet?By Mouth?Daily Zolpidem (Ambien 10 mg oral tablet)?1?tab(s)?10?Milligram?By Mouth?Daily at bedtime?as needed?as needed for insomnia ? Results Recent Labs BLOOD COUNT & DIFF WBC 8.6 k/mm3 ()?? 04/05/2023 17:07 RBC 5.37 m/mm3 ()?? 04/05/2023 17:07 Hgb 16.5 Gm/dL ()?? 04/05/2023 17:07 Hct 49.0 % ()?? 04/05/2023 17:07 MCV 91.2 femtoliters ()?? 04/05/2023 17:07 MCH 30.7 pg ()?? 04/05/2023 17:07 MCHC 33.7 g/dL ()?? 04/05/2023 17:07 Platelet Count 196 k/mm3 ()?? 04/05/2023 17:07 RDW-SD 44.2 femtoliters ()?? 04/05/2023 17:07 MPV 9.9 femtoliters ()?? 04/05/2023 17:07 Nucleated RBC (Automated) 0.0 #/100 WBC'S ()?? 04/05/2023 17:07 Abs. NRBC 0.0 k/mm3 ()?? 04/05/2023 17:07 Abs. Neut 6.0 k/mm3 ()?? 04/05/2023 17:07 Abs. Lymph 1.8 k/mm3 ()?? 04/05/2023 17:07 Abs. Mclean 0.5 k/mm3 ()?? 04/05/2023 17:07 Abs. Eo 0.2 k/mm3 ()?? 04/05/2023 17:07 Abs. Baso 0.1 k/mm3 ()?? 04/05/2023 17:07 Neut % 69.8 % ()?? 04/05/2023 17:07 Lymph % 20.9 % ()?? 04/05/2023 17:07 Mclean % 6.3 % ()?? 04/05/2023 17:07 Eos % 2.0 % ()?? 04/05/2023 17:07 Baso % 0.8 % ()?? 04/05/2023 17:07 Imm Gran 0.2 % ()?? 04/05/2023 17:07 Abs. Imm Gran 0.0 k/mm3 ()?? 04/05/2023 17:07 ?? CARDIAC CK, Total 278 units/L ()?? 04/05/2023 17:07 High Sensitivity Troponin (HSTnT) 44 ng/L (High)?? 04/05/2023 22:03 ?? CHEM GENERAL Sodium 140 mmol/L ()?? 04/05/2023 17:07 Potassium 4.4 mmol/L ()?? 04/05/2023 17:07 Chloride 100 mmol/L ()?? 04/05/2023 17:07 Bicarbonate Level 20 mmol/L (Low)?? 04/05/2023 17:07 Anion Gap 20 (High)?? 04/05/2023 17:07 Glucose Level 94 mg/dL ()?? 04/05/2023 17:07 Glucose, POC 151 mg/dL (High)?? 04/06/2023 15:21 BUN 19 mg/dL ()?? 04/05/2023 17:07 Creatinine-Blood 1.4 mg/dL (High)?? 04/05/2023 17:07 Estimated GFR Creatinine 52 ML/MIN/1.73 M2 ()?? 04/05/2023 17:07 Calcium 9.9 mg/dL ()?? 04/05/2023 17:07 Protein, Total 8.6 Gm/dL (High)?? 04/05/2023 17:07 Albumin 4.7 Gm/dL ()?? 04/05/2023 17:07 AG Ratio 1.2 ()?? 04/05/2023 17:07 Alkaline Phosphatase 127 units/L ()?? 04/05/2023 17:07 AST (SGOT) 31 units/L ()?? 04/05/2023 17:07 ALT (SGPT) 27 units/L ()?? 04/05/2023 17:07 Bilirubin, Total 0.7 mg/dL ()?? 04/05/2023 17:07 ?? HEME OTHER Hold Blue Top SPECIMEN DISCARDED AFTER 4 HOURS. ()?? 04/05/2023 17:07 ?? UA/URINALYSIS Appear/Color, Urine LIGHT YELLOW ()?? 04/05/2023 16:51 Clarity CLEAR ()?? 04/05/2023 16:51 Specific Ermine, Urine 1.010 ()?? 04/05/2023 16:51 pH, Urine 6.5 ()?? 04/05/2023 16:51 Albumin, Urine NEGATIVE ()?? 04/05/2023 16:51 Glucose, Urine 2+ (Abnormal)?? 04/05/2023 16:51 Ketones, Urine NEGATIVE ()?? 04/05/2023 16:51 Bilirubin, Urine NEGATIVE ()?? 04/05/2023 16:51 Hemoglobin, Urine NEGATIVE ()?? 04/05/2023 16:51 Nitrite, Urine NEGATIVE ()?? 04/05/2023 16:51 Leukocyte, Urine NEGATIVE ()?? 04/05/2023 16:51 Urobilinogen NORMAL mg/dL ()?? 04/05/2023 16:51 Hold Urine Culture Testing available 48 hours from time of collection. ()?? 04/05/2023 16:51 ?? URINE OTHER Est Creatinine Clearance 45.44 mL/min ()?? 04/05/2023 18:08 ?? VIROLOGY COVID-19 by RT-PCR NEGATIVE ()?? 04/05/2023 18:17 ? CBC, CBC w/Diff?? No qualifying data available. ?? BMP, Mg, and Phos?? No qualifying data available. ?? LFT?? No qualifying data available. ? EKG study * Event Display: ECG 12-Lead Authored Date: [id number] Please click on pdf link to open report * Event Display: ECG 12-Lead Authored Date: [id number] Ventricular Rate: 74 BPM Atrial Rate: 74 BPM P-R Interval: 198 ms QRS Duration: 116 ms Q-T Interval: 390 ms QTC Calculation(Bazett): 432 ms P [place]: 54 degrees R [place]: -23 degrees T [place]: 54 degrees Normal sinus rhythm Incomplete left bundle branch block Borderline ECG When compared with ECG of 28-MAY-2022 10:54, No significant change was found Confirmed by [id number] on 04/06/2023 10:04:34 PM [place] * Paola Friedman RN: PERFORM, SIGN, VERIFY Event Display: Progress Note [facility] Authored Date: [id number] Patient: SELMA CROUCH Age: 77 years Sex: Male : 1945 Associated Diagnoses: None Author: Paola Friedman RN Findings Problem Related to Alteration in Gastrointestinal : Alteration in Gastrointestinal Func/new 04/08/2023 17:00 EDT Alteration in GI status Related to Constipation, Other: N/V Goals & Outcomes, Gastrointestinal Establish a regular pattern of elimination for pt, Nutritional intake is adequate for metabolic needs, Pt will achieve normal/improved fluid balance, Pt will have a bowel movement prior to discharge Interventions, Gastrointestinal Assess/monitor bowel pattern, bowel sounds, flatus, Assess/monitor number of bowel movements BH Goals/Interventions, Gastrointestinal Yes Gastrointestinal, Problem Start 04/07/2023 1:12 Reviewed plan with, Gastrointestinal Patient Patient Progression, Gastrointestinal Resolved problem Gastrointestinal, Problem Resolved 04/08/2023 17:35 . Alteration in Safety : Alteration in Safety/new 04/08/2023 17:00 EDT Alteration in Safety Related to Other: recent falls Goals & Outcomes, Safety Psychosocial support will be provided to Pt/S.O. as needed, Pt/caregiver will state understanding of plan/goals of care, Pt will remain safe & injury free, Pt/caregiver will be offered appropriate resources & support Interventions, Safety Provide teaching as needed Goals/Interventions, Safety Yes Safety, Problem Start 04/07/2023 1:11 Reviewed plan with, Safety Patient Patient Progression, Safety Resolved problem Safety, Problem Resolved 04/08/2023 17:35 . Nursing Data Vital Signs : VITAL SIGNS SECTION 04/08/2023 16:00 EDT Temperature 98.3 DegF Temperature Route Oral Pulse Rate 85 bpm Respiratory Rate 18 br/min Systolic Blood Pressure 134 mm Hg Diastolic Blood Pressure 62 mm Hg Blood pressure sites Arm, left Oxygen Saturation 95 % Mode of Delivery (Oxygen) Room air . Evaluation (A&Ox4. 2max assist OOB to chair. voiding in urinal w/no issues. Pt medically cleared for discharge. IV removed. Pt and family inagreement w/ d/c plan. VSS. Pt being discharged to rehab via ambulance. ) * Jesi Vasquez RN: PERFORM, SIGN, VERIFY Event Display: Progress Note Hospital Authored Date: [id number] Patient: SELMA CROUCH Age: 77 years Sex: Male : 1945 Associated Diagnoses: None Author: Jesi Vasquez RN Findings Problem Related to Alteration in Gastrointestinal : Alteration in Gastrointestinal Func/new 04/08/2023 0:00 EDT Alteration in GI status Related to Constipation, Other: N/V Goals & Outcomes, Gastrointestinal Establish a regular pattern of elimination for pt, Nutritional intake is adequate for metabolic needs, Pt will achieve normal/improved fluid balance, Pt will have a bowel movement prior to discharge Interventions, Gastrointestinal Assess/monitor abdomen for distention, tenderness, Assess/monitor number of bowel movements, Assess/monitor pt for nausea, vomiting, Teach Pt/caregiver on bowel elimination interventions BH Goals/Interventions, Gastrointestinal Yes Gastrointestinal, Problem Start 04/07/2023 1:12 Reviewed plan with, Gastrointestinal Patient Patient Progression, Gastrointestinal Pt progressing according to plan . Alteration in Safety : Alteration in Safety/new 04/08/2023 0:00 EDT Alteration in Safety Related to Other: recent falls Goals & Outcomes, Safety Psychosocial support will be provided to Pt/S.O. as needed, Pt/caregiver will state understanding of plan/goals of care, Pt will remain safe & injury free, Pt/caregiver will be offered appropriate resources & support Interventions, Safety Provide teaching as needed Goals/Interventions, Safety Yes Safety, Problem Start 04/07/2023 1:11 Reviewed plan with, Safety Patient Patient Progression, Safety Pt progressing according to plan . Nursing Data Vital Signs : VITAL SIGNS SECTION 04/07/2023 21:48 EDT Early Warning Score 2.00 04/07/2023 20:06 EDT Early Warning Score 2.00 04/07/2023 20:06 EDT Temperature 99.0 DegF Temperature Route Oral Pulse Rate 88 bpm Respiratory Rate 18 br/min Systolic Blood Pressure 139 mm Hg H Diastolic Blood Pressure 81 mm Hg Blood pressure sites Arm, right Mean Arterial Pressure 100 mm Hg Pulse Pressure 58 mm Hg Oxygen Saturation 95 % Mode of Delivery (Oxygen) Room air . Narrative/Incidental Patient A&Ox4; Using bedpan as needed and ringing for urinal - no issues voiding noted. Cooperative with scheduled laxatives. Encouraging patient to move in bed as much as possible. Sleeping withCPAP on. Bed in low, locked position & call- wheat in reach.. Discharge Information Pulmonary Rehab Discharge : Pulmonary Rehab Discharge Status 04/07/2023 22:54 EDT CPAP/BiPAP Mask Type Full CPAP/BiPAP Mask Size Large 04/07/2023 1:00 EDT CPAP/BiPAP Mask Type Full CPAP/BiPAP Mask Size Large Rehabilitation Discharge : Rehab Discharge Index 04/07/2023 12:12 EDT Walker: distance < 10 04/07/2023 7:38 EDT Full chart review completed Not Done: Task Duplication (Not Done) 04/06/2023 8:55 EDT Comments on treatment indicated Progress functional mobility with wheeled walker, ther ex Distance pt will ambulate 15-50 feet Full chart review completed Yes Hospital course Hospital course Other findings Patient unable to transfer o/o chair from sitting to standing. Attempted x3. Nursingnotified patient will require a mechanical lift to transfer o/o chair Plan of care PT Gait training, Transfer training, Therapeutic exercise, Functional Activities * Paola Friedman RN: PERFORM, SIGN, VERIFY Event Display: Progress Note Hospital Authored Date: [id number] Patient: SELMA CROUCH Age: 77 years Sex: Male : 1945 Associated Diagnoses: None Author: Paola Friedman RN Findings Problem Related to Alteration in Gastrointestinal : Alteration in Gastrointestinal Func/new 04/07/2023 17:00 EDT Alteration in GI status Related to Constipation, Other: N/V Goals & Outcomes, Gastrointestinal Establish a regular pattern of elimination for pt, Nutritional intake is adequate for metabolic needs, Pt will achieve normal/improved fluid balance, Pt will have a bowel movement prior to discharge Interventions, Gastrointestinal Assess/monitor number of bowel movements, Assess/monitor pt for nausea, vomiting, Assess/monitor effects of re-hydration, Assess/monitor intake & output, Assess ifpt tolerating diet BH Goals/Interventions, Gastrointestinal Yes Gastrointestinal, Problem Start 04/07/2023 1:12 Reviewed plan with, Gastrointestinal Patient Patient Progression, Gastrointestinal Pt progressing according to plan . Alteration in Safety : Alteration in Safety/new 04/07/2023 17:00 EDT Alteration in Safety Related to Other: recent falls Goals & Outcomes, Safety Psychosocial support will be provided to Pt/S.O. as needed, Pt/caregiver will state understanding of plan/goals of care, Pt will remain safe & injury free, Pt/caregiver will be offered appropriate resources & support Interventions, Safety Provide teaching as needed Goals/Interventions, Safety Yes Safety, Problem Start 04/07/2023 1:11 Reviewed plan with, Safety Patient Patient Progression, Safety Pt progressing according to plan . Nursing Data Vital Signs : VITAL SIGNS SECTION 04/07/2023 16:00 EDT Temperature 97.6 DegF Temperature Route Oral Pulse Rate 90 bpm Respiratory Rate 18 br/min Systolic Blood Pressure 151 mm Hg H Diastolic Blood Pressure 80 mm Hg Blood pressure sites Arm, right Pulse Pressure 71 mm Hg Oxygen Saturation 96 % Liters per Minute 0 L/min Mode of Delivery (Oxygen) Room air . Evaluation (A&Ox4. 2max assist in bed. Dulcolax suppository given w + effect- +large BM. Pt denies nausea. Pt voiding w/ no issues. VSS. Call light within reach, plan of care and safety maintained. ) Note * Paola Friedman RN: PERFORM Event Display: Discharge/Transfer Note Hospital Authored Date: [id number] Nursing Discharge Note Entered On: 04/08/2023 17:43 EDT Performed On: 04/08/2023 17:43 EDT by Paola Friedman RN Nursing Discharge Note 2 Discharge Time : 04/08/2023 17:43 EDT Discharge Level of Care at Discharge : Inpatient Rehab Facility/Unit Patient Left Unit Via : Ambulance Patient Accompanied Off Unit with : Ambulance/Chair Van Personnel Handover Given to Transport Personnel : Yes DC Instructions Provided & Signed by Pt : No Patient Understands D/C Instructions : Yes Patient Instructions Discharge Signed : No Did Pt have Specialty Bed or Wound Vac : No Idalia NORRIS, Paola - 04/08/2023 17:43 EDT * Joseph VEGA, Asa: PERFORM Event Display: Discharge/Transfer Note Hospital Authored Date: [id number] Patient: ??SELMA CROUCH ? Age:??77 Years?Sex:??Male?:??1945?? Patient Information Discharge Location: Med Surg Primary Care Physician: Luiz Major Admit Date/Time: 04/05/23 12:01 Discharge Disposition Discharge Disposition: ?? Discharge Diagnosis ?? Severe constipation Mechanical fall BPH _ Discharge Medications Aripiprazole (ARIPiprazole 5 mg oral tablet)?5?Milligram?1?tablet?By Mouth?Daily?plus 1 tablet as needed for mood Atorvastatin (atorvastatin 80 mg oral tablet)?1?tab(s)?80?Milligram?By Mouth?Daily carboxymethylcellulose?1 drop?Eyes, Both?2 times a day?0.5% eye drop Clonidine (cloNIDine 0.2 mg oral tablet)?0.2?Milligram?1?tablet?By Mouth?3 times a day Diazepam (diazepam 2 mg oral tablet)?2?Milligram?1?tablet?By Mouth?2 times a day Escitalopram (escitalopram 10 mg oral tablet)?1.5 tablets?By Mouth?Daily Finasteride (finasteride 5 mg oral tablet)?5?Milligram?By Mouth?Daily Furosemide (furosemide 40 mg oral tablet)?40?Milligram?1?tablet?By Mouth?Daily Gabapentin (gabapentin 600 mg oral tablet)?1?tab(s)?600?Milligram?2 times a day Insulin Glargine (Lantus Solostar Pen 100 units/mL subcutaneous solution)?See Instructions?Subcutaneous Injection?for 30?Days?Use as directed for Diabetes mellitus type 1. (Max Dose = 15 units/day) levETIRAcetam (Keppra 750 mg oral tablet)?1?tab(s)?750?Milligram?By Mouth?2 timesa day?for 90?Days Multivitamin?1?tab(s)?By Mouth?Daily Polyethylene Glycol 3350 (MiraLax oral powder for reconstitution)?17?gram?By Mouth?Daily?dissolve in water before taking semaglutide (semaglutide 1.7 mg/0.75 mL (1.7 mg dose) subcutaneous solution)?1.7?Milligram?Subcutaneous Infusion?Every week Spironolactone (spironolactone 25 mg oral tablet)?25?Milligram?1?tablet?By Mouth?Daily Tamsulosin (Flomax 0.4 mg oral capsule)?0.4?Milligram?By Mouth?Daily at bedtime Thiamine (thiamine 100 mg oral tablet)?See Instructions?1 tablet By Mouth Daily Trazodone (traZODone 100 mg oral tablet)?50?Milligram?0.5?tablet?By Mouth?Daily Zolpidem (Ambien 10 mg oral tablet)?1?tab(s)?10?Milligram?By Mouth?Daily at bedtime?as needed?as needed for insomnia ? Medications Started Finasteride 5 mg p.o. daily Flomax 1 tablet p.o. daily at bedtime MiraLAX 17 g p.o. daily Medications Discontinued Prazosin Allergies Allergies ?(Active and Proposed Allergies Only) NKA? (Severity: Unknown severity, Onset: Unknown) ? Objective Assessment and Plan ?Patient is a 77-year-old female with??diabetes mellitus,??seizure disorder, obstructive sleep apnea, on CPAP,??history of right ICA aneurysms,??dyslipidemia,??depression,??hypertension, who presented with falls. ??Subsequently has had nausea and vomiting??in the ER ?? 1.?? Falls ???No new medication changes,??no acute??contributory factor identified ??? May have had dehydration??that contributed, with underlying significant??osteoarthritis??andMorbid obesity PT recommended rehab ??? Trauma work-up including CT head, CT C-spine,CT chest, CT abdomen, bilateral knees and right shoulder showed no acute trauma. ??? Bilateral knees showed severe degenerative osteoarthritis, and moderate joint effusions in bilateral knees. ?? 2.?? Nausea, vomiting???unclear etiology, possibly gastroenteritis,??versus gastroparesis,??and??constipation ??? CT abdomen/pelvisWithout contrast showed no bowel obstruction, moderate stool retention, severely dilated bladder and mildly enlarged prostate, as read by the radiologist. ??? Nausea and vomiting improved now Patient tolerating diet well without any complaints today Continue bowel regimen for constipation ?? 3. ??Seizure disorder???continue Keppra ?? 4. ??Dyslipidemia???continue statin Hypertension???continue clonidine ?? 5. ??Diabetes mellitus ??? No longer on Lantus as per patient, and is on semaglutide injections weekly Will giveSliding scale, hemoglobin A1c-6.6 ?? 6.?? Anxiety,??depression???continue??escitalopram,??will hold??Valium??for now, given concern briefly for altered mental status??earlier today, although he appears at cognitive baseline currently.??Monitor overnight and can resume??Valium??twice daily as needed tomorrow ??? We will also hold gabapentin??and can restart tomorrow??if mental status remains??intact ???Continue Abilify ?? 7.?? 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 See neuro interventional list, and plan is for expectant??management/monitoring. ?? 8.?? BPH:??CT scan revealed??severely dilated bladder and??enlarged prostate. Bladder scan revealed??PVR less than 100 mL Started on Flomax and finasteride. ??Recommended outpatient urology follow-up after discharge from the hospital Vital Signs?? Temperature: 97.9 DegF (04/08/23 08:00:00) Temperature Route: Oral (04/08/23 08:00:00) Pulse Rate: 90 bpm (04/08/23 08:00:00) Respiratory Rate: 18 br/min (04/08/23 09:14:00) Systolic Blood Pressure:??142 mm Hg??High (04/08/23 08:00:00) Diastolic Blood Pressure: 72 mm Hg (04/08/23 08:00:00) Blood pressure sites: Arm, right (04/08/23 08:00:00) Mean Arterial Pressure: 98 mm Hg (04/08/23 05:41:00) Pulse Pressure: 70 mm Hg (04/08/23 05:41:00) Oxygen Saturation: 96 % (04/08/23 08:00:00) Liters per Minute: 0 L/min (04/07/23 16:00:00) Mode of Delivery (Oxygen): Room air (04/08/23 08:00:00) FiO2: 21 % (04/07/23 22:54:00) Early Warning Score: 2 (04/08/23 09:14:56) ? Pain Scores?? No qualifying data available. ?? . Physical Exam Mental status:??Alert and oriented to person, place and time ?? Obese male patient lying in bed without any acute distress Skin:??warm and dry, without diaphoresis Neck:??supple without JVD, bruit or mass, no stridor Cardiovascular:??heart RRR, without murmur, rubs or gallop Respiratory:??lungs clear to auscultation without wheezing or rhonchi Gastrointestinal:??abdomen soft, normal active bowel sounds, nontender, no rebound or guarding Musculoskeletal:??extremities without edema, well perfused Neurologic:??nonfocal, moves all extremities, fully ambulatory Pending Results No Pending Results Post Discharge Care Diet: Low Sodium (2 Gram) Diet Condition: stable Prognosis: Good Discharge ?04/08/23 11:24:00 EDT Home Health Face to Face ^HomeHealthFTF Results Discharge Labs BLOOD COUNT & DIFF WBC 12.6 k/mm3 (High)?? 04/07/2023 06:13 RBC 5.46 m/mm3 ()?? 04/07/2023 06:13 Hgb 16.7 Gm/dL ()?? 04/07/2023 06:13 Hct 50.1 % (High)?? 04/07/2023 06:13 MCV 91.8 femtoliters ()?? 04/07/2023 06:13 MCH 30.6 pg ()?? 04/07/2023 06:13 MCHC 33.3 g/dL ()?? 04/07/2023 06:13 Platelet Count 211 k/mm3 ()?? 04/07/2023 06:13 RDW-SD 44.9 femtoliters ()?? 04/07/2023 06:13 MPV 9.8 femtoliters ()?? 04/07/2023 06:13 Nucleated RBC (Automated) 0.0 #/100 WBC'S ()?? 04/07/2023 06:13 Abs. NRBC 0.0 k/mm3 ()?? 04/07/2023 06:13 Abs. Neut 11.0 k/mm3 (High)?? 04/07/2023 06:13 Abs. Lymph 0.7 k/mm3 (Low)?? 04/07/2023 06:13 Abs. Mclean 0.8 k/mm3 ()?? 04/07/2023 06:13 Abs. Eo 0.0 k/mm3 ()?? 04/07/2023 06:13 Abs. Baso 0.0 k/mm3 ()?? 04/07/2023 06:13 Neut % 87.8 % (High)?? 04/07/2023 06:13 Lymph % 5.3 % (Low)?? 04/07/2023 06:13 Mclean % 6.4 % ()?? 04/07/2023 06:13 Eos % 0.0 % ()?? 04/07/2023 06:13 Baso % 0.2 % ()?? 04/07/2023 06:13 Imm Gran 0.3 % ()?? 04/07/2023 06:13 Abs. Imm Gran 0.0 k/mm3 ()?? 04/07/2023 06:13 ?? CARDIAC CK, Total 278 units/L ()?? 04/05/2023 17:07 High Sensitivity Troponin (HSTnT) 44 ng/L (High)?? 04/05/2023 22:03 ?? CHEM GENERAL Sodium 143 mmol/L ()?? 04/07/2023 06:13 Potassium 4.7 mmol/L ()?? 04/07/2023 06:13 Chloride 103 mmol/L ()?? 04/07/2023 06:13 Bicarbonate Level 24 mmol/L ()?? 04/07/2023 06:13 Anion Gap 16 ()?? 04/07/2023 06:13 Glucose Level 94 mg/dL ()?? 04/05/2023 17:07 Glucose, POC 109 mg/dL (High)?? 04/08/2023 08:07 Hemoglobin A1C (Monitoring) 6.6 % (High)?? 04/07/2023 06:13 BUN 24 mg/dL (High)?? 04/07/2023 06:13 Creatinine-Blood 1.5 mg/dL (High)?? 04/07/2023 06:13 Estimated GFR Creatinine 48 ML/MIN/1.73 M2 ()?? 04/07/2023 06:13 Calcium 9.9 mg/dL ()?? 04/07/2023 06:13 Magnesium 2.3 mg/dL ()?? 04/07/2023 06:13 Protein, Total 8.6 Gm/dL (High)?? 04/05/2023 17:07 Albumin 4.6 Gm/dL ()?? 04/07/2023 06:13 AG Ratio 1.2 ()?? 04/05/2023 17:07 Alkaline Phosphatase 109 units/L ()?? 04/07/2023 06:13 AST (SGOT) 20 units/L ()?? 04/07/2023 06:13 ALT (SGPT) 20 units/L ()?? 04/07/2023 06:13 Bilirubin, Total 0.9 mg/dL ()?? 04/07/2023 06:13 ?? HEME OTHER Hold Blue Top SPECIMEN DISCARDED AFTER 4 HOURS. ()?? 04/05/2023 17:07 ? UA/URINALYSIS Appear/Color, Urine LIGHT YELLOW ()?? 04/05/2023 16:51 Clarity CLEAR ()?? 04/05/2023 16:51 Specific Ermine, Urine 1.010 ()?? 04/05/2023 16:51 pH, Urine 6.5 ()?? 04/05/2023 16:51 Albumin, Urine NEGATIVE ()?? 04/05/2023 16:51 Glucose, Urine 2+ (Abnormal)?? 04/05/2023 16:51 Ketones, Urine NEGATIVE ()?? 04/05/2023 16:51 Bilirubin, Urine NEGATIVE ()?? 04/05/2023 16:51 Hemoglobin, Urine NEGATIVE ()?? 04/05/2023 16:51 Nitrite, Urine NEGATIVE ()?? 04/05/2023 16:51 Leukocyte, Urine NEGATIVE ()?? 04/05/2023 16:51 Urobilinogen NORMAL mg/dL ()?? 04/05/2023 16:51 Hold Urine Culture Testing available 48 hours from time of collection. ()?? 04/05/2023 16:51 ? URINE OTHER Est Creatinine Clearance 42.41 mL/min ()?? 04/07/2023 06:48 ? VIROLOGY COVID-19 by RT-PCR NEGATIVE ()?? 04/05/2023 18:17 ? Blood Glucose Trend Glucose, POC:??109 mg/dL??High (04/08/23 08:07:00) Glucose, POC:??139 mg/dL??High (04/07/23 21:29:00) Glucose, POC:??173 mg/dL??High (04/07/23 16:39:00) ? Microbiology ?? COVID-19 (Novel Coronavirus), Rapid PCR?? Completed?? Source: Nasal Body Site: Nose Collected Dt/Tm: 04/05/2023 18:14 Last Updated Dt/Tm: 04/05/2023 19:16 ? 55_ minutes spent on discharge * Joseph VEGA, Asa: PERFORM Event Display: Discharge/Transfer Note Hospital Authored Date: Anticipated short-term rehab stay is less than 30 days * Adair Caputo RN: PERFORM, SIGN, VERIFY Event Display: Case Management Discharge Plan Authored Date: Patient: SELMA CROUCH Age: 77 years Sex: Male : 1945 Associated Diagnoses: None Author: Adair Caputo RN Discharge Plan Case Management Discharge Plan : Case Management Discharge Plan Data 04/08/2023 10:31 EDT Discharge Level of Care at Discharge retirement facility Discharge Transportation Arranged [facility] [address] [place] [address] Name of Agency #1 [facility] Molder Machine #1 Intake Service Categories #1 Physical Therapy, Half-Way Patient Care team information Care Team Personnel Name: Paola Friedman RN [facility] RN Member Role: Primary Care Nurse Name: Yazmin Reid RN Position[facility] RN Member Role: Primary Care Nurse Name: Jesi Vasquez RN Position: [facility] RN Member Role: Primary Care Nurse Name: Luiz Major Position: Reference Physician Member Role: PCP Address: Address: [address] [place] [id number] Name: Katty IGNACIO Attending Position[facility] ED Medicine MD Name: Rohini Chavez Position: [facility] ED OA Member Role: Package Line Operator Name: Brandy Shirley Position: [facility] TA [facility] Member Role: Patient Care Provider Name: Grace Yoder RN Position: [facility] ED RN W/OE and Tasks Member Role: Patient Care Provider Care Team Related Persons Name: DEMOND LUIS Address: [place] [address] Name: MARTI CROUCH Address: [place] [address]
--- OUTSIDE RECORDS SUMMARY | 2023-04-22 12:26 | XMS_ITS | Continuity of Care Document ---
Author Name Unknown Organization [facility] Address [address] [place] [address]- Care Team Providers Care Support Analyst Name Role Phone Luiz Major Primary Care Physician Encounter [facility] [place] Date(s): 07/29/21 - 08/05/21 [facility] [address] [place], [place] [address] Attending Physician: Robert Downing MD Admitting Physician: [...] 13:01:31 EDT Start Date: 03/07/19 Status: Ordered Social History Social History Type Response Smoking Status Former smoker, quit more than 30 days ago entered on: 12/22/18 Sex
--- OUTSIDE RECORDS SUMMARY | 2023-04-22 12:26 | XMS_ITS | Continuity of Care Document ---
Author Name Unknown Organization [facility] Address [address] [facility], [address] d Floor, [address] [place] [address]- Care Team Providers Care Warehouse Man Name Role Phone Luiz Major Primary Care Physician Encounter [facility] [place] Date(s): 09/28/22 - 10/28/22 [facility] [address], [address] Floor, [address] [place] [address] Allergies, Adverse Reactions, Alerts No Known Allergies [...] tablet, 3 Refills, Maintenance, 09/24/22 14:43:00EST, Tablet, [facility], 175, cm, 06/29/22 8:34:00 EDT, [...] Reference Physician Member Role: PCP Address: Address: [address] [place] [address]- Care Team Related Persons Name: DEMOND LUIS Address: home [address] [place] [id number] Name: MARTI CROUCH Address: [address] [address]
--- OUTSIDE RECORDS SUMMARY | 2023-04-22 12:26 | XMS_ITS | Continuity of Care Document ---
Author Name Unknown Organization [facility] Address [address] [facility], [address]r d Floor, [address] [place] [address]- Care Team Providers Care Photograph Enlarger Name Role Phone Luiz Major Primary Care Physician [phone] Encounter [facility] Date(s): 09/24/22 - 10/24/22 [facility] [address], [address] Floor, [address] [place] [address] Allergies, Adverse Reactions, Alerts No Known Allergies [...] tablet, 3 Refills, Maintenance, 09/24/22 14:43:00EST, Tablet, [facility], 175, cm, 06/29/22 8:34:00 EDT, Height, [...] Reference Physician Member Role: PCP Address: Address: [address] [place] [address]- Care Team Related Persons Name: DEMOND LUIS Address: home [address] [place] [address] Name: MARTI CROUCH Address: [address] [address]
--- OUTSIDE RECORDS SUMMARY | 2023-04-22 12:26 | XMS_ITS | Continuity of Care Document ---
Author Name Unknown Organization [facility] Address [address] [place] [address]- Care Team Providers Care Litigation Examiner Name Role Phone Luiz Major Primary Care Physician [place] [facility] 02/17/21 - 03/19/21 [facility] [address] [place], [place] [address] Allergies, Adverse Reactions, Alerts Substance Reaction Severity [...]
--- OUTSIDE RECORDS SUMMARY | 2023-04-22 12:26 | XMS_ITS | Continuity of Care Document ---
Author Name Unknown Organization [facility] Address [address] [place] [address]- Care Team Providers Care Row Boss Hoeing Name Role Phone Luiz Major Primary Care Physician Encounter [facility] Date(s): 04/15/21 - 05/15/21 [facility] [address] [place], [place] [address] Attending Physician: Cordelia Bravo Admitting Physician: AdmCordelia cuevas Referring Physician: AdmtrCordelia Allergies, Adverse Reactions, Alerts Substance Reaction Severity [...]
--- OUTSIDE RECORDS SUMMARY | 2023-04-22 12:26 | XMS_ITS | Continuity of Care Document ---
Author Name Unknown Organization [facility] Address [address] [place] [address]- Care Team Providers Care Higher Education Administrator Name Role Phone Luiz Major Primary Care Physician Encounter [facility] Date(s): 03/11/21 - 04/10/21 [facility] [address] [place], [place] [address] Attending Physician: Cordelia Bravo Admitting Physician: [...]
--- OUTSIDE RECORDS SUMMARY | 2023-04-22 12:26 | XMS_ITS | Continuity of Care Document ---
Author Name Unknown Organization [facility] Address [address] [place] [address]- Care Team Providers Care Electronic Engineering Draftsperson Name Role Phone Luiz Major Primary Care Physician En[place] [facility] [place] [id number] Date(s): 04/15/21 - 04/22/21 [facility] [address] [place], [place] [address] Attending Physician: Robert Downing MD Admitting [...]
--- OUTSIDE RECORDS SUMMARY | 2023-04-22 12:26 | XMS_ITS | Continuity of Care Document ---
Author Name Unknown Organization [facility] Address [address] [place] [address]- Care Team Providers Care Supervisor Pipeline Name Role Phone Luiz Major Primary Care Physician [phone] Encounter [facility] [place] Date(s): 07/29/21 - 08/28/21 [facility] [address] [place], [place] [address] Attending Physician: Cordelia Bravo Admitting Physician: Cordelia [...]
--- OUTSIDE RECORDS SUMMARY | 2023-04-22 12:26 | XMS_ITS | Continuity of Care Document ---
Author Name Unknown Organization [facility] Address [address] [place] [address]- Care Team Providers Care Prefitter Name Role Phone Luiz Major Primary Care Physician Encounter [facility] Date(s): 09/11/19 - 09/21/19 [facility] [address] [place] [address]- [facility] Attending Physician: Cordelia Bravo Admitting Physician: AdmtrCordelia Referring Physician: Admtr, Cordelia Allergies, Adverse Reactions, Alerts Substance Reaction Severity [...]
--- OUTSIDE RECORDS SUMMARY | 2023-04-22 12:26 | XMS_ITS | Continuity of Care Document ---
Author Name Unknown Organization [facility] Address [address] [place] [address]- Care Team Providers Care Motel Maid Name Role Phone Luiz Major Primary Care Physician Encounter [facility] [place] Date(s): 05/28/22 - 05/30/[address] [address] Discharge Disposition: A-D/C Home Attending Physician: Shahrzad VEGA, Yariel Castillo Admitting Physician: Jessica Reed MD Referring Physician: Not on Staff, Referring MD Allergies, Adverse Reactions, Alerts No Known Allergies [...] Tablet Start Date: 03/07/19 Status: Ordered gabapentin 300 mg oral capsule 600 mg, Capsule, By Mouth, 05/30/22 9:00:00 EDT Start Date: 05/30/22 Stop Date: 05/30/22 Status: Completed gabapentin 600 mg oral tablet 1 tablet = 600 mg, 2 times a day, 0 Refills, Maintenance, 05/28/22 20:25:00 EDT, Partial fill upon patient request if the prescription is for a schedule II opioid drug. Start Date: 05/28/22 Status: Ordered Keppra 750 mg oral tablet 1 tablet = 750 mg, By Mouth, 2 times a day, # 60 tablet, 0 Refills, Maintenance, 05/30/22 11:35:00 EDT, Tablet, [facility] 3, Partial fill upon patient request if the prescription is for a schedule II opioid drug., 175, cm, 05/30/22 11:25:... Start Date: 05/30/22 Stop Date: 06/29/22 Status: Ordered Lantus Solostar Pen 100 units/mL [...] Date: 03/07/19 Status: Ordered Problem List Condition Effective Dates Status Health Status Inform ant Shoulder arthritis(Confirmed) Active Diabetes(Confirmed) Active Diabetic neuropathy(Confirmed) Active Obesity(Confirmed) Active Obstructive sleep apnea(Confirmed) Active Peripheral vascular disease(Confirmed) Active Vital Signs Most recent to oldest [Reference Range]: 1 2 3 Height 175 cm (05/30/22 11:25 AM) 175 cm (05/30/22 7:39 AM) 175 cm (05/30/22 4:34 AM) Weight 143 kg (05/28/22 11:12 AM) Oxygen Saturation [94-100 %] 100 % (05/30/22 11:25 AM) 95 % (05/30/22 7:39 AM) 98 % (05/30/22 4:34 AM) Pulse Rate [55-90 bpm] 90 bpm (05/30/22 11:25 AM) 105 bpm *H* (05/30/22 7:39 AM) 102 bpm *H* (05/30/22 4:34 AM) Blood Pressure [90-138/55-84 mm Hg] 166/89mm Hg *H* (05/30/22 11:25 AM) 153/78mm Hg *H* (05/30/22 7:39 AM) 139/80mm Hg *H* (05/30/22 4:34 AM) Respiratory Rate [16-30 br/min] 18 br/min (05/30/22 11:25 AM) 18 br/min (05/30/22 11:06 AM) 20 br/min (05/30/22 10:06 AM) Temperature [96.8-100.4 DegF] 97.6 DegF (05/30/22 11:25 AM) 97.4 DegF (05/30/22 7:39 AM) 97.4 DegF (05/30/22 4:34 AM) Mode of Delivery (Oxygen) Room air (05/30/22 11:25 AM) Room air (05/30/22 7:39 AM) Room air (05/30/22 4:34 AM) Blood pressure sites Arm, left (05/30/22 11:25 AM) Arm, left (05/30/22 7:39 AM) Arm, left (05/30/22 4:34 AM) Temperature Route Oral (05/30/22 11:25 AM) Oral (05/30/22 7:39 AM) Oral (05/30/22 4:34 AM) Dry Weight 157 kg (05/28/22 4:41 PM) 143 kg (05/28/22 11:12 AM) Social History Social History Type Response Smoking Status Former smoker, quit more than 30 days ago entered on: 12/22/18 Sex Care Team Personnel Name: Luiz Major Address: [address] [place] [address]
--- OUTSIDE RECORDS SUMMARY | 2023-04-22 12:26 | XMS_ITS | Continuity of Care Document ---
Author Name Unknown Organization [facility] Address [address] [place] [address]- Care Team Providers Care Information Technology Analyst Name Role Phone Luiz Major Primary Care Physician En[place] [facility] [place] [place] [id number] Date(s): 03/13/21 - 03/20/21 [facility] [address] [place], [place] [address] Attending Physician: Robert Downing MD [...]
[2023-04-22] MEDS: 0.9 % Sodium Chloride 1,000 ML 999 ML IV (12:39)
--- NOTE | 2023-04-22 12:59 | PHA.MEDREC ---
Pharmacy Consult ? Medication Reconciliation Pharmacy has completed the medication reconciliation. Patient is from [facility] [address].
[2023-04-22 13:13] LABS: Lactic Acid 0.9 mmol/L (0.5-2.0)
[2023-04-22] MEDS: Ampicillin Sodium/Sulbactam Na 3 GM in 0.9 % Sodium Chloride 100 ML IV ×2 (14:09→18:09)
[2023-04-22] MEDS: cloNIDine HCL 0.2 MG TABLET PO ×2 (14:53→21:52)
[2023-04-22 14:54] VITALS: BP 122/63; PULSE 82; RESP 18; O2SAT 99
[2023-04-22 16:02] VITALS: BP 125/48; PULSE 78; RESP 18
[2023-04-22 16:16] LABS: Glucose, Whole Blood 165 mg/dL (60-115)
[2023-04-22] MEDS: Insulin Lispro 100 UNIT/ML 3 ML VIAL SUBCUT ×2 (16:20→21:52)
[2023-04-22 16:53] VITALS: BP 161/70; PULSE 75; RESP 20; TEMP 36.5; O2SAT 79
[2023-04-22 19:36] VITALS: BP 138/65; PULSE 75; RESP 20; TEMP 36.5; O2SAT 95
[2023-04-22 20:07] LABS: B Type Natriuretic Peptide 19 pg/mL (<100)
[2023-04-22 20:49] LABS: Glucose, Whole Blood 188 mg/dL (60-115)
[2023-04-22] MEDS: levETIRAcetam 250 MG TABLET 750 MG PO (21:51)
[2023-04-22] MEDS: Apixaban 5 MG TABLET PO (21:52)
[2023-04-22] MEDS: Gabapentin 600 MG TABLET PO (21:52)
[2023-04-22] MEDS: Atorvastatin Calcium 80 MG TABLET PO (21:52)
[2023-04-22] MEDS: traZODone HCL 25 MG HALFTAB PO (21:52)
[2023-04-22] MEDS: Tamsulosin HCL 0.4 MG CAPSULE PO (21:52)
[2023-04-22] MEDS: 0.9 % Sodium Chloride Flush 3 ML SYRINGE IVFLUSH ×2 (21:53→23:31)
[2023-04-22] MEDS: Acetaminophen 325 MG TABLET 650 MG PO (23:32)
[2023-04-23] MEDS: Ampicillin Sodium/Sulbactam Na 3 GM in 0.9 % Sodium Chloride 100 ML IV ×4 (00:54→18:15)
[2023-04-23 03:19] VITALS: BP 134/66; PULSE 69; RESP 18; TEMP 36.2; O2SAT 97
[2023-04-23 06:21] LABS: Hematocrit 39.7 % (42.0-52.0); Hemoglobin 12.7 g/dl (14.0-18.0); Mean Corpuscular Hemoglobin 29.9 pg (27.0-33.0); Mean Corpuscular Volume 93.4 fL (80.0-98.0); Mean Platelet Volume 9.4 fL (9.4-12.4); Platelet Count 276 X10*3/uL (160-400); Red Blood Count 4.25 X10*6/uL (4.60-5.80); Red Cell Distribution Width 12.5 % (11.0-16.0); White Blood Count 6.9 X10*3/uL (4.8-10.8)
[2023-04-23 06:36] LABS: Anion Gap 17 (12-20); Blood Urea Nitrogen 15 mg/dL (9-16); Calcium 9.6 mg/dL (8.4-10.2); Carbon Dioxide 19 mmol/L (22-29); Chloride 105 mmol/L (96-108); Creatinine Clr Calc Pharmacy 82.6; Estimated Glomerular Filt Rate > 60; Glucose Random 116 mg/dL (60-115); Potassium 4.2 mmol/L (3.3-5.1); Sodium 137 mmol/L (135-145)
[2023-04-23 07:38] VITALS: BP 138/73; PULSE 73; RESP 18; TEMP 36.3; O2SAT 94
[2023-04-23 07:39] LABS: Glucose, Whole Blood 107 mg/dL (60-115)
[2023-04-23] MEDS: Finasteride 5 MG TABLET PO (07:56)
[2023-04-23] MEDS: Thiamine HCL 100 MG TABLET PO (07:56)
[2023-04-23] MEDS: polyethylene glycoL 3350 17 GM POWD.PACK PO (07:56)
[2023-04-23] MEDS: Gabapentin 600 MG TABLET PO ×2 (07:57→20:16)
[2023-04-23] MEDS: levETIRAcetam 250 MG TABLET 750 MG PO ×2 (07:57→20:16)
[2023-04-23] MEDS: cloNIDine HCL 0.2 MG TABLET PO ×3 (07:57→22:11)
[2023-04-23] MEDS: Multivitamin TABLET 1 TAB PO (07:57)
[2023-04-23] MEDS: Escitalopram Oxalate 5 MG TABLET 15 MG PO (07:57)
[2023-04-23] MEDS: Apixaban 5 MG TABLET PO ×2 (07:57→20:16)
[2023-04-23] MEDS: Furosemide 40 MG TABLET PO (07:57)
[2023-04-23] MEDS: Insulin Glargine,Hum.rec.anlog 100 UNIT/ML 10 ML VIAL 11 UNIT SUBCUT (07:58)
--- NOTE | 2023-04-23 11:06 | P.PNIM_ITS ---
Subjective Subjective Date of Service: 04/23/23 Interval History: being followed for right lower extremity cellulitis, patient feeling better denies pain noted to have less swelling, denies fever, chills, no nausea, no vomiting no abdominal pain no diarrhea tolerating diet no other acute issues overnight. Review of Systems All other system reviewed and negative. Physical Exam Vital Signs: Vital Signs: Last Vital Signs Temp 97.4 F 04/23/23 07:38 Pulse 73 04/23/23 07:38 Resp 18 04/23/23 07:38 BP 138/73 04/23/23 07:38 Pulse Ox 94 04/23/23 07:38 O2 Del Method Room Air 04/23/23 07:38 BMI result Body Mass Index 42.9 Const: Other: General awake alert x3, resting comfortably in no acute distress. Neck supple no JVD. CVS regular rate rhythm, Respiratory lungs clear to auscultation, no respiratory distress, no wheeze, no rhonchi. Gastrointestinal abdomen soft, nontender, bowel sounds audible, no guarding , no rigidity. Extremities right lower extremity redness and swelling improving, no warmth, nontender Neuro nonfocal , speech clear. psych appropriate affect Objective Data Active Medications Acetaminophen (Acetaminophen 325 Mg Tablet) 650 mg PO Q6H PRN PRN Reason: Pain, Mild (Pain Scale 1-3) Last Admin: 04/22/23 23:32 Dose: 650 mg Documented By: JASON Apixaban (Apixaban 5 Mg Tablet) 5 mg PO BID [facility] Last Admin: 04/23/23 07:57 Dose: 5 mg Documented By: TRICIA Artificial Tears (Artificial Tears 15 Ml Drops) 1 drop EYE-BOTH BID [facility] Last Admin: 04/23/23 07:58 Dose: Not Given Documented By: TRICIA Non-Admin Reason: Patient Refused Atorvastatin Calcium (Atorvastatin Calcium 80 Mg Tablet) 80 mg PO BEDTIME [facility] Last Admin: 04/22/23 21:52 Dose: 80 mg Documented By: DEAN Bisacodyl (Bisacodyl 10 Mg Supp.Rect) 10 mg GA DAILY PRN PRN Reason: Constipation Clonidine HCl (Clonidine Hcl 0.2 Mg Tablet) 0.2 mg PO TID [facility]; Protocol Last Admin: 04/23/23 07:57 Dose: 0.2 mg Documented By: TRICIA Dextrose (Dextrose 50 % 25 Gm/50 Ml Syringe) 25 gm IVPUSH Q15M PRN; Protocol PRN Reason: per Hypoglycemia Standing Ord. Docusate Sodium (Docusate Sodium 100 Mg Capsule) 100 mg PO DAILY PRN PRN Reason: Constipation Escitalopram Oxalate (Escitalopram Oxalate 5 Mg Tablet) 15 mg PO DAILY [facility] Last Admin: 04/23/23 07:57 Dose: 15 mg Documented By: TRICIA Finasteride (Finasteride 5 Mg Tablet) 5 mg PO DAILY [facility] Last Admin: 04/23/23 07:56 Dose: 5 mg Documented By: TRICIA Furosemide (Furosemide 40 Mg Tablet) 40 mg PO DAILY [facility]; Protocol Last Admin: 04/23/23 07:57 Dose: 40 mg Documented By: TRICIA Gabapentin (Gabapentin 600 Mg Tablet) 600 mg PO BID [facility] Last Admin: 04/23/23 07:57 Dose: 600 mg Documented By: TRICIA Glucose (Glucose Gel 15 Gm Gel..Gram.) 15 gm PO Q15M PRN; Protocol PRN Reason: per Hypoglycemia Standing Ord. Ampicillin Sodium/Sulbactam (Sodium 3 gm/ Sodium Chloride) 100 mls @ 200 mls/hr IV Q6H [facility] Last Infusion: 04/23/23 07:19 Dose: 0 mls/hr Documented By: TRICIA Insulin Glargine (Insulin Glargine,Hum.Rec.Anlog 100 Unit/Ml 10 Ml Vial) 11 unit SUBCUT DAILY [facility] Last Admin: 04/23/23 07:58 Dose: 11 unit Documented By: TRICIA Insulin Human Lispro (Insulin Lispro 100 Unit/Ml 3 Ml Vial) 0 unit SUBCUT QIDACHS [facility]; Protocol Last Admin: 04/23/23 07:40 Dose: Not Given Documented By: TRICIA Non-Admin Reason: No Insulin Coverage Levetiracetam (Levetiracetam 250 Mg Tablet) 750 mg PO BID [facility] Last Admin: 04/23/23 07:57 Dose: 750 mg Documented By: TRICIA Magnesium Hydroxide (Milk Of Magnesia 30 Ml Oral.Susp) 30 ml PO BEDTIME PRN PRN Reason: Constipation Multivitamins/Vitamin C (Multivitamin Tablet) 1 tab PO DAILY [facility] Last Admin: 04/23/23 07:57 Dose: 1 tab Documented By: TRICIA Pharmacy Consult (Consult Rx Perform Med Rec) 1 each MISCELLANE ONCE PRN PRN Reason: Consult order Polyethylene Glycol (Polyethylene Glycol 3350 17 Gm Powd.Pack) 17 gm PO DAILY [facility] Last Admin: 04/23/23 07:56 Dose: 17 gm Documented By: TRICIA Sodium Biphosphate/Sodium Phosphate (Sodium Phosphate,[place]-Dibasic 133 Ml Enema) 133 ml GA DAILY PRN PRN Reason: Constipation Sodium Chloride (0.9 % Sodium Chloride Flush 3 Ml Syringe) 3 ml IVFLUSH QSHIFT [facility] Last Admin: 04/22/23 23:31 Dose: 3 ml Documented By: JASON Tamsulosin HCl (Tamsulosin Hcl 0.4 Mg Capsule) 0.4 mg PO BEDTIME [facility] Last Admin: 04/22/23 21:52 Dose: 0.4 mg Documented By: DEAN Thiamine HCl (Thiamine Hcl 100 Mg Tablet) 100 mg PO DAILY [facility] Last Admin: 04/23/23 07:56 Dose: 100 mg Documented By: TRICIA Trazodone HCl (Trazodone Hcl 25 Mg Halftab) 25 mg PO BEDTIME [facility] Last Admin: 04/22/23 21:52 Dose: 25 mg Documented By: DEAN Labs 04/23/23 06:04 04/23/23 06:04 Labs: Laboratory Results - last 24 hr 04/22/23 04/22/23 04/22/23 12:54 16:13 19:34 MCV MCH MCHC RDW Plt Count MPV Absolute Nucleated RBC Nucleated RBC % (auto) Anion Gap Estim Creat Clear Calc Estimated GFR POC Glucose 165 H Random Glucose Lactic Acid 0.9 Calcium B-Natriuretic Peptide 04/22/23 04/23/23 04/23/23 20:43 06:04 06:04 MCV 93.4 MCH 29.9 MCHC 32.0 RDW 12.5 Plt Count 276 MPV 9.4 Absolute Nucleated RBC 0.000 Nucleated RBC % (auto) 0.0 Anion Gap 17 Estim Creat Clear Calc 82.6 Estimated GFR > 60 POC Glucose 188 H Random Glucose 116 H Lactic Acid Calcium 9.6 B-Natriuretic Peptide 04/23/23 07:19 MCV MCH MCHC RDW Plt Count MPV Absolute Nucleated RBC Nucleated RBC % (auto) Anion Gap Estim Creat Clear Calc Estimated GFR POC Glucose 107 Random Glucose Lactic Acid Calcium B-Natriuretic Peptide Assessment and Plan (1) Cellulitis: Status: Acute Plan 77-year-old male with a PMH significant for?HTN, insulin-dependent diabetes type 2 with neuropathy, seizure disorder, BPH, depression, and anxiety who presents to the ED from rehab with?recurrent right lower leg swelling and redness. Pt will be admitted to the hospital for treatment with IV antibiotics of acute right lower leg cellulitis that has failed outpatient therapy. Right lower leg cellulitis s/p iv abx treatment for LE cellulitis at both [facility] and here during the past month Erythema, warmth, swelling of right lower leg improving cont. Unasyn IV 3g q6h day 2 Infectious Disease consult Hx of bacteremia 1/2 BCx positive at last admission Likely secondary to cellulitis. UA negative for acute infection. belly CT from [facility] 04/06 with no infectious etiology. repeat abdominal CT with po contrast without source of infection. Final culture results unable to be determined by lab and sent out to reference lab Final results positive for Acinetobacter, susceptible to Unasyn current blood cultures pend HTN continue clonidine and Lasix, BP stable Insulin-dependent diabetes type 2 good blood sugar control, continue Sliding-scale insulin, Lantus and Diabetic diet Diabetic neuropathy Continue gabapentin Seizure disorder Continue levetiracetam, seizure precautions BPH Continue Flomax, Proscar Mood disorder Continue home meds Chronic lower leg swelling Continue furosemide DNR/DNI DVT Prophylaxis: On Eliquis PT has been on Eliquis since at least being at rehab, indication unclear to either facility or patient Will continue Eliquis Pt will require continued inpatient hospitalization for treatment with IV antibiotics of acute right lower leg cellulitis as failed outpatient therapy. Time Spent With Patient Time: Total time managing care of this patient today ____ minutes. Quality Stroke Does the patient have a stroke diagnosis?: No VTE Prior VTE?: No VTE Risk Level:: Medical - moderate - high VTE Device Contraindication: Treatment Not Indicated VTE Drug Contraindication: N/A - Med Ordered
[2023-04-23 11:16] LABS: Glucose, Whole Blood 191 mg/dL (60-115)
[2023-04-23] MEDS: Insulin Lispro 100 UNIT/ML 3 ML VIAL SUBCUT ×3 (11:31→22:09)
[2023-04-23] MEDS: 0.9 % Sodium Chloride Flush 3 ML SYRINGE IVFLUSH ×2 (14:29→20:17)
[2023-04-23 15:00] VITALS: BP 141/67; PULSE 76; RESP 18; TEMP 36.6; O2SAT 97
--- NOTE | 2023-04-23 15:34 | MHC.CM.PN ---
PT REPORTS HE IS HERE FROM [facility] WHERE HE WAS RECEIVING STR HE LIVES WITH HIS SON AND IS INDEPENDENT AT BL HE TYPICALLY REQUIRES NO DME AND HAS NO SERVICES HE HAS A MOLST ON FILE AND REPORTS HE HAS A HCP HE CONFIR[facility], TASK SENT TO [facility] IMM DELIVERED PT WILL NEED A PT EVAL TO RETURN TO STR AT [facility] HE WILL NEED BLS TRANSPORT
[2023-04-23 16:27] LABS: Glucose, Whole Blood 211 mg/dL (60-115)
[2023-04-23 19:52] VITALS: BP 144/70; PULSE 74; RESP 17; TEMP 37.1; O2SAT 97
[2023-04-23] MEDS: Tamsulosin HCL 0.4 MG CAPSULE PO (20:16)
[2023-04-23] MEDS: Atorvastatin Calcium 80 MG TABLET PO (20:16)
[2023-04-23] MEDS: traZODone HCL 25 MG HALFTAB PO (20:17)
[2023-04-23] MEDS: Docusate Sodium 100 MG CAPSULE PO (20:20)
[2023-04-23 20:28] LABS: Glucose, Whole Blood 176 mg/dL (60-115)
[2023-04-24] MEDS: Acetaminophen 325 MG TABLET 650 MG PO (00:30)
[2023-04-24] MEDS: Ampicillin Sodium/Sulbactam Na 3 GM in 0.9 % Sodium Chloride 100 ML IV ×4 (00:30→18:24)
[2023-04-24 03:37] VITALS: BP 166/76; PULSE 85; RESP 17; TEMP 36.7
[2023-04-24 07:02] VITALS: BP 160/80; PULSE 80; RESP 20; TEMP 36.3; O2SAT 96
[2023-04-24] MEDS: 0.9 % Sodium Chloride Flush 3 ML SYRINGE IVFLUSH ×3 (07:12→19:47)
[2023-04-24 07:34] LABS: Glucose, Whole Blood 118 mg/dL (60-115)
[2023-04-24] MEDS: Insulin Glargine,Hum.rec.anlog 100 UNIT/ML 10 ML VIAL 11 UNIT SUBCUT (08:22)
[2023-04-24] MEDS: polyethylene glycoL 3350 17 GM POWD.PACK PO (08:22)
[2023-04-24] MEDS: Finasteride 5 MG TABLET PO (08:23)
[2023-04-24] MEDS: Apixaban 5 MG TABLET PO ×2 (08:23→21:02)
[2023-04-24] MEDS: cloNIDine HCL 0.2 MG TABLET PO ×3 (08:23→21:02)
[2023-04-24] MEDS: Escitalopram Oxalate 5 MG TABLET 15 MG PO (08:23)
[2023-04-24] MEDS: levETIRAcetam 250 MG TABLET 750 MG PO ×2 (08:23→21:02)
[2023-04-24] MEDS: Multivitamin TABLET 1 TAB PO (08:23)
[2023-04-24] MEDS: Gabapentin 600 MG TABLET PO ×2 (08:24→21:03)
[2023-04-24] MEDS: Thiamine HCL 100 MG TABLET PO (08:24)
[2023-04-24] MEDS: Furosemide 40 MG TABLET PO (08:24)
--- NOTE | 2023-04-24 10:01 | P.PNIM_ITS ---
Subjective Subjective Date of Service: 04/24/23 Interval History: being followed for recent bacteremia and right lower extremity recurrent cellulitis, offers no acute complaints denies headache, no dizziness noted to have elevated blood pressures as per patient he has elevated blood pressure and baseline t, suboptimally controlled, no fevers, no chills, tolerating diet no nausea no vomiting, no abdominal pain or diarrhea. Review of Systems All other system reviewed and negative. Physical Exam Vital Signs: Vital Signs: Last Vital Signs Temp 97.3 F 04/24/23 07:02 Pulse 80 04/24/23 07:02 Resp 20 04/24/23 07:02 BP 160/80 H 04/24/23 07:02 Pulse Ox 96 04/24/23 07:02 O2 Del Method Room Air 04/24/23 07:02 BMI result Body Mass Index 42.9 Const: Other: M?General? awake al ert x3, resting co mfortably in no ac [place] distress.? Nec k supple no JVD. C VS? regular rate r hythm, Respiratory lungs clear to au scultation, no res piratory distress, no wheeze, no rho nchi. Gastrointest inal abdomen soft, nontender, bowel sounds audible, no guarding , no rig idity. Extremities ? right lower extr emity redness and swelling improving , no warmth, non t riky Neuro nonfoc al , speech clear. psych appropriate affect Objective Data Active Medications Acetaminophen (Acetaminophen 325 Mg Tablet) 650 mg PO Q6H PRN PRN Reason: Pain, Mild (Pain Scale 1-3) Last Admin: 04/24/23 00:30 Dose: 650 mg Documented By: JASON Apixaban (Apixaban 5 Mg Tablet) 5 mg PO BID [facility] Last Admin: 04/24/23 08:23 Dose: 5 mg Documented By: IGOR Artificial Tears (Artificial Tears 15 Ml Drops) 1 drop EYE-BOTH BID [facility] Last Admin: 04/24/23 08:24 Dose: Not Given Documented By: IGOR Non-Admin Reason: Patient Refused Atorvastatin Calcium (Atorvastatin Calcium 80 Mg Tablet) 80 mg PO BEDTIME [facility] Last Admin: 04/23/23 20:16 Dose: 80 mg Documented By: JASON Bisacodyl (Bisacodyl 10 Mg Supp.Rect) 10 mg RI DAILY PRN PRN Reason: Constipation Clonidine HCl (Clonidine Hcl 0.2 Mg Tablet) 0.2 mg PO TID [facility]; Protocol Last Admin: 04/24/23 08:23 Dose: 0.2 mg Documented By: IGOR Dextrose (Dextrose 50 % 25 Gm/50 Ml Syringe) 25 gm IVPUSH Q15M PRN; Protocol PRN Reason: per Hypoglycemia Standing Ord. Docusate Sodium (Docusate Sodium 100 Mg Capsule) 100 mg PO DAILY PRN PRN Reason: Constipation Last Admin: 04/23/23 20:20 Dose: 100 mg Documented By: JASON Escitalopram Oxalate (Escitalopram Oxalate 5 Mg Tablet) 15 mg PO DAILY [facility] Last Admin: 04/24/23 08:23 Dose: 15 mg Documented By: IGOR Finasteride (Finasteride 5 Mg Tablet) 5 mg PO DAILY [facility] Last Admin: 04/24/23 08:23 Dose: 5 mg Documented By: IGOR Furosemide (Furosemide 40 Mg Tablet) 40 mg PO DAILY [facility]; Protocol Last Admin: 04/24/23 08:24 Dose: 40 mg Documented By: IGOR Gabapentin (Gabapentin 600 Mg Tablet) 600 mg PO BID [facility] Last Admin: 04/24/23 08:24 Dose: 600 mg Documented By: IGOR Glucose (Glucose Gel 15 Gm Gel..Gram.) 15 gm PO Q15M PRN; Protocol PRN Reason: per Hypoglycemia Standing Ord. Ampicillin Sodium/Sulbactam (Sodium 3 gm/ Sodium Chloride) 100 mls @ 200 mls/hr IV Q6H [facility] Last Infusion: 04/24/23 07:12 Dose: 0 mls/hr Documented By: IGOR Insulin Glargine (Insulin Glargine,Hum.Rec.Anlog 100 Unit/Ml 10 Ml Vial) 11 unit SUBCUT DAILY [facility] Last Admin: 04/24/23 08:22 Dose: 11 unit Documented By: IGOR Insulin Human Lispro (Insulin Lispro 100 Unit/Ml 3 Ml Vial) 0 unit SUBCUT QIDACHS [facility]; Protocol Last Admin: 04/24/23 07:34 Dose: Not Given Documented By: IGOR Non-Admin Reason: No Insulin Coverage Levetiracetam (Levetiracetam 250 Mg Tablet) 750 mg PO BID [facility] Last Admin: 04/24/23 08:23 Dose: 750 mg Documented By: IGOR Magnesium Hydroxide (Milk Of Magnesia 30 Ml Oral.Susp) 30 ml PO BEDTIME PRN PRN Reason: Constipation Multivitamins/Vitamin C (Multivitamin Tablet) 1 tab PO DAILY [facility] Last Admin: 04/24/23 08:23 Dose: 1 tab Documented By: IGOR Pharmacy Consult (Consult Rx Perform Med Rec) 1 each MISCELLANE ONCE PRN PRN Reason: Consult order Polyethylene Glycol (Polyethylene Glycol 3350 17 Gm Powd.Pack) 17 gm PO DAILY [facility] Last Admin: 04/24/23 08:22 Dose: 17 gm Documented By: IGOR Sodium Biphosphate/Sodium Phosphate (Sodium Phosphate,[place]-Dibasic 133 Ml Enema) 133 ml RI DAILY PRN PRN Reason: Constipation Sodium Chloride (0.9 % Sodium Chloride Flush 3 Ml Syringe) 3 ml IVFLUSH QSHIFT [facility] Last Admin: 04/24/23 07:12 Dose: 3 ml Documented By: IGOR Tamsulosin HCl (Tamsulosin Hcl 0.4 Mg Capsule) 0.4 mg PO BEDTIME [facility] Last Admin: 04/23/23 20:16 Dose: 0.4 mg Documented By: JASON Thiamine HCl (Thiamine Hcl 100 Mg Tablet) 100 mg PO DAILY [facility] Last Admin: 04/24/23 08:24 Dose: 100 mg Documented By: IGOR Trazodone HCl (Trazodone Hcl 25 Mg Halftab) 25 mg PO BEDTIME [facility] Last Admin: 04/23/23 20:17 Dose: 25 mg Documented By: JASON Labs 04/23/23 06:04 04/23/23 06:04 Labs: Laboratory Results - last 24 hr 04/23/23 04/23/23 04/23/23 11:10 16:22 20:24 POC Glucose 191 H 211 H 176 H 04/24/23 07:25 POC Glucose 118 H Microbiology Microbiology Results: Microbiology 04/22/23 13:58 Blood Culture - Preliminary Blood - Venous No growth after 24 hours. 04/22/23 13:00 Blood Culture - Preliminary Blood - Venous No growth after 24 hours. Assessment and Plan (1) Cellulitis: Status: Acute Plan 77-year-old male with a PMH significant for?HTN, insulin-dependent diabetes type 2 with neuropathy, seizure disorder, BPH, depression, and anxiety who presents to the ED from rehab with?recurrent right lower leg swelling and redness. Pt will be admitted to the hospital for treatment with IV antibiotics of acute right lower leg cellulitis that has failed outpatient therapy. Right lower leg cellulitis s/p iv abx treatment for LE cellulitis at both [facility] and here during the past month Erythema, warmth, swelling of right lower leg improving, normal CBC blood cultures x2 negative, no leukocytosis cont. Unasyn IV 3g q6h day 3 1 more day and transition to by mouth once blood culture remain negative for 48 hours Infectious Disease consult Hx of bacteremia 1/2 BCx positive at last admission Likely secondary to cellulitis. UA negative for acute infection. belly CT from [facility] 04/06 with no infectious etiology. repeat abdominal CT with po contrast without source of infection. Final culture results unable to be determined by lab and sent out to reference lab Final results positive for Acinetobacter, susceptible to Unasyn current blood cultures negative HTN elevated blood pressures,continue clonidine and Lasix, add lisinopril 5 mg follow BP closely Insulin-dependent diabetes type 2 good blood sugar control, continue Sliding-scale insulin, Lantus and Diabetic diet Diabetic neuropathy Continue gabapentin Seizure disorder Continue levetiracetam, seizure precautions BPH Continue Flomax, Proscar Mood disorder Continue home meds Chronic lower leg swelling Continue furosemide DNR/DNI DVT Prophylaxis: On Eliquis PT has been on Eliquis since at least being at rehab, indication unclear to either facility or patient Will continue Eliquis Pt will require continued inpatient hospitalization for treatment with IV antibiotics of acute right lower leg cellulitis as failed outpatient therapy. Time Spent With Patient Time: Total time managing care of this patient today ____ minutes. Quality Stroke Does the patient have a stroke diagnosis?: No VTE Prior VTE?: No VTE Risk Level:: Medical - moderate - high VTE Device Contraindication: Treatment Not Indicated VTE Drug Contraindication: N/A - Med Ordered
[2023-04-24] MEDS: lisinopriL 5 MG TABLET PO (10:51)
[2023-04-24 11:24] LABS: Glucose, Whole Blood 197 mg/dL (60-115)
[2023-04-24] MEDS: Insulin Lispro 100 UNIT/ML 3 ML VIAL SUBCUT ×2 (11:38→21:03)
[2023-04-24 15:05] VITALS: BP 152/78; PULSE 80; RESP 20; TEMP 36.4; O2SAT 96
[2023-04-24 16:12] LABS: Glucose, Whole Blood 143 mg/dL (60-115)
[2023-04-24 19:52] VITALS: BP 134/71; PULSE 72; RESP 18; TEMP 35.9; O2SAT 92
[2023-04-24 20:12] LABS: Glucose, Whole Blood 169 mg/dL (60-115)
[2023-04-24] MEDS: Atorvastatin Calcium 80 MG TABLET PO (21:02)
[2023-04-24] MEDS: traZODone HCL 25 MG HALFTAB PO (21:02)
[2023-04-24] MEDS: Tamsulosin HCL 0.4 MG CAPSULE PO (21:03)
[2023-04-24 23:27] VITALS: BP 104/58; PULSE 70; RESP 16; TEMP 36.1; O2SAT 95
[2023-04-25] MEDS: Ampicillin Sodium/Sulbactam Na 3 GM in 0.9 % Sodium Chloride 100 ML IV ×3 (00:57→13:52)
[2023-04-25 07:15] VITALS: BP 136/65; PULSE 77; RESP 16; TEMP 36.1; O2SAT 94
[2023-04-25 07:31] LABS: Glucose, Whole Blood 147 mg/dL (60-115)
[2023-04-25] MEDS: Finasteride 5 MG TABLET PO (08:25)
[2023-04-25] MEDS: Thiamine HCL 100 MG TABLET PO (08:26)
[2023-04-25] MEDS: cloNIDine HCL 0.2 MG TABLET PO ×3 (08:26→21:51)
[2023-04-25] MEDS: Apixaban 5 MG TABLET PO ×2 (08:26→21:51)
[2023-04-25] MEDS: Escitalopram Oxalate 5 MG TABLET 15 MG PO (08:26)
[2023-04-25] MEDS: Furosemide 40 MG TABLET PO (08:26)
[2023-04-25] MEDS: levETIRAcetam 250 MG TABLET 750 MG PO ×2 (08:27→21:50)
[2023-04-25] MEDS: lisinopriL 5 MG TABLET PO (08:27)
[2023-04-25] MEDS: Gabapentin 600 MG TABLET PO ×2 (08:27→21:50)
[2023-04-25] MEDS: Multivitamin TABLET 1 TAB PO (08:27)
[2023-04-25] MEDS: 0.9 % Sodium Chloride Flush 3 ML SYRINGE IVFLUSH (08:28)
[2023-04-25] MEDS: Insulin Glargine,Hum.rec.anlog 100 UNIT/ML 10 ML VIAL 11 UNIT SUBCUT (08:28)
[2023-04-25] MEDS: polyethylene glycoL 3350 17 GM POWD.PACK PO (08:37)
[2023-04-25 11:31] LABS: Glucose, Whole Blood 210 mg/dL (60-115)
[2023-04-25] MEDS: Insulin Lispro 100 UNIT/ML 3 ML VIAL SUBCUT (11:53)
--- NOTE | 2023-04-25 13:44 | MHC.CM.PN ---
A PT eval was ordered. The patient qualifies for STR. He came from [facility]. He was on a bed hold (last day 04/25/23). He will return to [facility] to continue [facility] to [facility] @ 3pm today.
--- NOTE | 2023-04-25 13:50 | PM.DS ---
DS: Providers Provider Date of Service: 04/25/23 Date of admission: 04/22/23 11:57 Primary care physician: LEEANN Kruse Consults: 04/22/23 11:58 Consult to Infectious Diseases Routine Consulting Provider: [facility] Infectious Disease Reason for consultation: Recurrent right lower leg cellulitis DS: Diagnosis Discharge Diagnosis (1) Cellulitis: Status: Acute DS: Summary Hospital Course Hospital Course: history of presenting illness: Date of Service: 04/22/23 Attending physician on admission: Kevin Cooley Chief Complaint: Cellulitis Pt is a 77-year-old male with a PMH significant for?HTN, insulin-dependent diabetes type 2 with neuropathy, seizure disorder, BPH, depression, and anxiety who presents to the ED from rehab with?recurrent right lower leg swelling and redness. Pt's symptoms initially began 4 weeks ago patient [place] his [place] when his right knee ?gave out?.? Patient caught himself on the window sill and was able to lower himself to the ground.? Was evaluated at [facility] and was noted to have swelling and erythema of right lower leg and treated for cellulitis.? Patient was admitted to the hospital for 1 week and then sent to rehab.? After 24 hours at rehab he developed a fever of 102 and then sent here to [facility] where he was admitted and treated for sepsis secondary to right lower leg cellulitis.? Patient also had 1/2 blood cultures return positive for GNR. Blood culture had be sent out to outside lab for identification. Erythema resolved by time of discharge (04/15/2021) and pt sent back to rehab on doxycycline 100 mg b.i.d. x7 days.? He subsequently completed his course of antibiotics but last night patient noted his right leg to again be swollen and erythematous.? Also experienced chills and diaphoresis. Was then sent back to ED for further evaluation.? Of note, blood cultures have subsequently come back positive for Acinetobacter susceptible to Unasyn. Pt otherwise has no acute medical complaints.? Denies any right leg or ankle pain.? Currently no fever, chills, diaphoresis. No chest pain/pressure, palpitations. Denies SOB. No abdominal pain. In the ED patient was afebrile. Labs were grossly unremarkable.? Venous Doppler ultrasound of right lower extremity found no evidence of DVT but showed mild subcutaneous edema in the right calf. Pt was treated with IVF in ED. Pt will be admitted to the hospital for treatment with IV antibiotics of acute right lower leg cellulitis that has failed outpatient therapy. 77-year-old male with a PMH significant for?HTN, insulin-dependent diabetes type 2 with neuropathy, seizure disorder, BPH, depression, and anxiety who presents to the ED from rehab with?recurrent right lower leg swelling and redness. Pt will be admitted to the hospital for treatment with IV antibiotics of acute right lower leg cellulitis that has failed outpatient therapy. Right lower leg cellulitis, patient recently finished 2 courses of IV antibiotics at that time blood culture sensitivities were not available, since blood culture was sent to outside laboratory, patient presented to hospital due to recurrent right lower extremity erythema, warmth and swelling,blood culture from previous admission positive for Acinetobacter, patient placed on IV Unasyn, repeat blood cultures came back negative, since patient is afebrile with significant improvement in right lower extremity redness, swelling, and warmth, he is being discharged back to rehab on 10 days of Augmentin as per ID recommendation. HTN ? continue clonidine and Lasix,? follow BP Insulin-dependent diabetes type 2 with diabetic neuropathy continue Lantus, insulin sliding scale and gabapentin. Seizure disorder Continue levetiracetam, seizure precautions BPH Continue Flomax, and Proscar Time Spent with Patient Time attestation: Total time managing care of this patient today ____ minutes. Discharge coordination time: Greater than 30 minutes Quality: Safe Use of Opioids Does Pt have an Active Cancer Diagnosis on the Problem List?: No Quality: Stroke Does the patient have a stroke diagnosis?: No Physical Exam Vital Signs: Vital Signs: Last Vital Signs Temp 97.0 F 04/25/23 07:15 Pulse 77 04/25/23 07:15 Resp 16 04/25/23 07:15 BP 136/65 04/25/23 07:15 Pulse Ox 94 04/25/23 07:15 O2 Del Method Room Air 04/25/23 07:15 BMI result Body Mass Index 42.9 Const: Other: General? awake alert x3, resting comfortably in no acute distress.? Neck supple no JVD. CVS? regular rate rhythm, Respiratory lungs clear to auscultation, no respiratory distress, no wheeze, no rhonchi. Gastrointestinal abdomen soft, nontender, bowel sounds audible, no guarding , no rigidity. Extremities? right lower extremity redness and swelling improved ,persistent petechial rash, no warmth, nontender Neuro nonfocal , speech clear. ?psych appropriate affect DS: Data Data Completed and Pending Labs on day of discharge: Laboratory Results - last 24 hr 04/24/23 04/24/23 04/25/23 16:07 20:04 07:19 POC Glucose 143 H 169 H 147 H 04/25/23 11:12 POC Glucose 210 H Preliminary micro results at discharge 04/22/23 13:58 Blood Culture - Preliminary Blood - Venous No growth after 48 hours. 04/22/23 13:00 Blood Culture - Preliminary Blood - Venous No growth after 48 hours. Discharge Plan Discharge Anticipated Discharge Date/Time: 04/25/23 13:50 Patient Disposition: Xfer [facility] Discharge Diagnosis: right lower extremity cellulitis Referrals: [facility] [place] [Outside] - 1 Week Pierce Metz MD [Physician] - 2 days Discharge Medications: New amoxicillin-pot clavulanate 875-125 mg tablet 1 tab PO BID Qty: 20 0RF Continued furosemide 40 mg tablet 40 mg PO DAILY atorvastatin 80 mg tablet 80 mg PO BEDTIME clonidine HCl 0.2 mg tablet 0.2 mg PO TID levetiracetam 750 mg tablet 750 mg PO BID multivitamin Tablet 1 tab PO DAILY gabapentin 600 mg tablet 600 mg PO BID trazodone 50 mg Tablet 25 mg PO BEDTIME thiamine HCl (vitamin B1) 100 mg Tablet 100 mg PO DAILY tamsulosin 0.4 mg Capsule 0.4 mg PO BEDTIME finasteride 5 mg Tablet 5 mg PO DAILY escitalopram oxalate 10 mg Tablet 15 mg PO DAILY insulin glargine [Lantus Solostar U-100 Insulin] 100 unit/mL (3 mL) Insulin Pen 15 unit SUBCUT DAILY carboxymethylcellulose sodium 0.5 % Drops 1 drp OPHTHALMIC (EYE) BID Rx Instructions: 1 drop into both eyes insulin lispro [Humalog KwikPen Insulin] 100 unit/mL Insulin Pen 1 sliding scale dose SUBCUT TIDAC Rx Instructions: 200-249 = 2 units; 250-300 = 4 units; 301-350 = 6 units; 351 - 400 = 8 units; 401-449 = 10 units apixaban 5 mg Tablet 5 mg PO BID docusate sodium 100 mg Capsule 100 mg PO DAILY PRN (Reason: Constipation) Qty: 1 0RF acetaminophen [Tylenol] 325 mg Tablet 650 mg PO Q6H PRN (Reason: Fever Or Pain) bisacodyl 10 mg Suppository 10 mg NC DAILY PRN (Reason: Constipation) Fleet Enema 19-7 gram/118 mL Enema 118 ml NC DAILY PRN (Reason: Constipation) glucagon HCl [Glucagon (HCl) Emergency Kit] 1 mg Recon Soln 1 mg SUBCUT Q20M PRN (Reason: Hypoglycemia) Rx Instructions: until target blood sugar attained Insta-Glucose Gel 77.4% 1 ea PO DAILY PRN (Reason: Hypoglycemia) magnesium hydroxide [Milk of Magnesia] 400 mg/5 mL Suspension 30 ml PO BEDTIME PRN (Reason: Constipation) polyethylene glycol 3350 [Miralax] 17 gram Powder In Packet 17 g PO DAILY Discontinued nystatin 100,000 unit/gram Powder 1 appl TOPICAL BID Discharge Orders: Discharge Order (Routine); Ordered 04/25/23 Ordered By: Kevin Cooley Diet: Diabetic diet Activity on Discharge: As tolerated Stand Alone Forms: Patient Portal Discharge page Activity Restrictions/Additional Instructions: Care Plan Goals: take Augmentin 1 tablet twice daily for 10 days keep legs elevated, continue participation with physical therapy due to high risk for fall and for optimal functional gains prior to returning home with son watch for diarrhea, Health Concerns: continue all home medications Plan of Treatment: follow-up with primary care physician Assessment: as above Patient Instructions: Cellulitis (ED), Cellulitis (DC), Warm Compress or Soak (ED)
[2023-04-25 15:54] VITALS: BP 135/70; PULSE 80; RESP 18; TEMP 36.6; O2SAT 97
[2023-04-25 17:03] LABS: Glucose, Whole Blood 131 mg/dL (60-115)
[2023-04-25] MEDS: Amoxicillin/Potassium Clav 875 MG TABLET PO (18:16)
[2023-04-25 19:49] VITALS: BP 135/63; PULSE 75; RESP 20; TEMP 36.9; O2SAT 96
[2023-04-25 21:07] LABS: Glucose, Whole Blood 125 mg/dL (60-115)
[2023-04-25] MEDS: Atorvastatin Calcium 80 MG TABLET PO (21:50)
[2023-04-25] MEDS: Tamsulosin HCL 0.4 MG CAPSULE PO (21:51)
[2023-04-25] MEDS: traZODone HCL 25 MG HALFTAB PO (21:51)
[2023-04-26 00:36] VITALS: BP 108/54; PULSE 76; RESP 20; TEMP 36.3; O2SAT 93
[2023-04-26] MEDS: Amoxicillin/Potassium Clav 875 MG TABLET PO (05:46)
[2023-04-26 07:14] VITALS: BP 125/67; PULSE 74; RESP 18; TEMP 36.8; O2SAT 94
[2023-04-26 07:25] LABS: Glucose, Whole Blood 106 mg/dL (60-115)
[2023-04-26] MEDS: Escitalopram Oxalate 5 MG TABLET 15 MG PO (08:27)
[2023-04-26] MEDS: levETIRAcetam 250 MG TABLET 750 MG PO (08:28)
[2023-04-26] MEDS: cloNIDine HCL 0.2 MG TABLET PO (08:28)
[2023-04-26] MEDS: Multivitamin TABLET 1 TAB PO (08:28)
[2023-04-26] MEDS: Furosemide 40 MG TABLET PO (08:28)
[2023-04-26] MEDS: Apixaban 5 MG TABLET PO (08:29)
[2023-04-26] MEDS: Finasteride 5 MG TABLET PO (08:29)
[2023-04-26] MEDS: Thiamine HCL 100 MG TABLET PO (08:29)
[2023-04-26] MEDS: polyethylene glycoL 3350 17 GM POWD.PACK PO (08:29)
[2023-04-26] MEDS: Insulin Glargine,Hum.rec.anlog 100 UNIT/ML 10 ML VIAL 11 UNIT SUBCUT (08:29)
[2023-04-26] MEDS: Gabapentin 600 MG TABLET PO (08:29)
[2023-04-26] MEDS: lisinopriL 5 MG TABLET PO (08:29)
--- NOTE | 2023-04-26 10:16 | MHC.CM.PN ---
[facility] not arrange [facility] ..pt to be picked up today at 11;30 to return [facility] auth expediated by [facility]
--- NOTE | 2023-04-26 10:19 | MHC.CM.PN ---
message left for cony colon new dc date
--- NOTE | 2023-05-04 07:10 | P.CDIM_ITS ---
PROVIDER RESPONSE TEXT: To clarify, the appropriate diagnosis supported by the clinical indicators: Obesity Due to excess calories QUERY TEXT: PHYSICIAN'S DOCUMENTATION REQUEST Date of Query: 04/25/2023 02:00 PM EDT Patient Name: Antonio Gonzalez Admit Date: 04/22/2023 Dear Kevin Cooley, A review of the medical record indicates additional documentation may be needed. Please review below and update the documentation accordingly. Clinical Indicators: Height: ( ) 5'9 Weight: ( ) 131.9 kg BMI: ( ) 42.9 Other Clinical Notes Supporting Significance of the BMI: Per Nutritional Risk Assessment 04/25/23: on therapeutic diet If possible, please provide an associated diagnosis related to the abnormal BMI, such as: Overweight Obesity Due to excess calories Obesity Drug induced Obesity Due to other cause Specify the other cause Severe or Morbid Obesity With alveolar hypoventilation Severe or Morbid Obesity Without alveolar hypoventilation BMI is not significant Other (explain)Clinically unable to determine (explain)Thank you, Mary Jones RN Use of terms such as suspected, likely, concern for, or probable (associated with a specific diagnosi s that is being evaluated, monitored, or treated as if it exists) are acceptable and can be coded in the inpatient se tting, when documented at the time of discharge. Please use your independent medical judgment in providing your response. THIS QUERY IS PART OF THE PERMANENT MEDICAL RECORD
--- NOTE | 2023-05-04 07:10 | P.CDIM_ITS ---
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 Please review below and update the documentation accordingly. Documentation includes the conditions of Right lower leg cellulitis and IDDM2. 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 Please use your independent medical judgment in providing your response. THIS QUERY IS PART OF THE PERMANENT MEDICAL RECORD
== END 2023-04-26 12:05 | disposition skilled nursing facility (03) | DRG 603 ==
LOC: HO.ED 11:10 → HO.EDOVER 12:24 → HO.S3 15:33
PROVIDERS: Hospitalist; Physician Assistant; Admitting Provider Student in an Organized Health Care Education/Training Program; Emergency Provider Emergency Medicine Emergency Medical Services; PCP Physician Assistant; Visit Provider Internal Medicine
DX: L03.115 Cellulitis of right lower limb (principal); Z68.41 Body mass index [BMI] 40.0-44.9, adult; E11.40 Type 2 diabetes mellitus with diabetic neuropathy, unspecified; G40.909 Epilepsy, unspecified, not intractable, without status epilepticus; Z66 Do not resuscitate; E66.9 Obesity, unspecified; K59.09 Other constipation; N40.0 Benign prostatic hyperplasia without lower urinary tract symptoms; Z87.891 Personal history of nicotine dependence; Z79.4 Long term (current) use of insulin; Z79.01 Long term (current) use of anticoagulants; Z79.899 Other long term (current) drug therapy
CPT/HCPCS: 36415; 80048; 80053; 82947; 83605; 83735; 83880; 85025; 85027; 87040; 93971; 97162; 99285; J0295

== ENCOUNTER → 2023-04-22 11:57 | Outpatient (BNV) | payer MEDICARE, BC, SELFPAY | PROVIDERS: Admitting Provider Student in an Organized Health Care Education/Training Program; Emergency Provider Emergency Medicine Emergency Medical Services; PCP Family Medicine Geriatric Medicine; Visit Provider Student in an Organized Health Care Education/Training Program | DX: L03.115 Cellulitis of right lower limb (principal) | CPT/HCPCS: 99223; 99233; 99239 ==